=== PATIENT | male | born 1955 | race Caucasian/White ===

== ENCOUNTER 2019-03-26 10:06 | Inpatient (IN) | payer SELFPAY ==
[~2019-03-26] VITALS: Ht 185 cm; Wt 95.7 kg
[2019-03-26] MEDS ORDERED: guaiFENesin/CODEINE (ROBITUSSIN AC) 10ML UDC PO PRN (13:15)
[2019-03-26] MEDS ORDERED: ONDANSETRON 4 MG (ZOFRAN) ORAL DISSOLVE TAB PO PRN (13:15)
[2019-03-26] MEDS ORDERED: BISACODYL 10 MG SUPP (DULCOLAX) PR PRN (13:15)
[2019-03-26] MEDS ORDERED: ACETAMINOPHEN 500 MG TAB (TYLENOL) PO PRN (13:15)
[2019-03-26] MEDS ORDERED: diphenhydrAMINE 25 MG TAB (BENADRYL) PO PRN (13:15)
[2019-03-26] MEDS ORDERED: ALPRAZolam 0.25 MG (XANAX) TAB PO PRN (13:15)
[2019-03-26] MEDS ORDERED: LACTULOSE SYRUP 10GM/15ML (ENULOSE) 30ML UDC PO PRN (13:15)
[2019-03-26] MEDS ORDERED: LOPERAMIDE 2 MG (IMODIUM) TABLET PO PRN (13:15)
[2019-03-26] MEDS ORDERED: MELATONIN 3 MG TABLET PO PRN (13:15)
[2019-03-26] MEDS ORDERED: DOCUSATE SODIUM 100 MG (COLACE) CAP PO PRN (13:15)
[2019-03-26] MEDS ORDERED: FLEET ENEMA ADULT 1 EA BTL PR PRN (13:15)
[2019-03-26] MEDS ORDERED: MULT-19 PO (14:17)
[2019-03-26] MEDS ORDERED: ASPI-983 PO (14:17)
[2019-03-26] MEDS ORDERED: AMLO5TAB9 PO (14:17)
[2019-03-26] MEDS ORDERED: THIA100T66 PO (14:17)
[2019-03-26] MEDS ORDERED: ATOR40TA70 PO (14:17)
--- NOTE | 2019-03-26 14:18 | NUR ---
UPDATED MED REC WITH DISCHARGE ORDERS FROM [facility]. NOTE THE FOLLOWING CHANGES WERE MADE AT THAT DISCHARGE. START TAKING: ASPIRIN 81MG DAILY ATORVASTATIN 40MG HS MTV WITH FOLIC ACID DAILY THIAMINE 100MG DAILY CONTINUE: AMLODIPINE 5MG DAILY I WILL UPDATE THE MED REC BACK TO THE MEDICATIONS THE PATIENT WAS TAKING PRIOR TO THAT DISCHARGE AT A LATER DATE FOR PROPER DISCHARGE TO HOME ORDERS. Addendum: 03/27/19 at 1450 by FARIDA BURNETT [facility] REMOVED THE 4 NEW MEDICATIONS ORDERED AT DISCHARGE FROM [facility]. I LEFT THE AMLODIPINE WHICH HAD BEEN ORDERED TO CONTINUE. I WAS UNABLE TO VERIFY WHERE/WHEN I WAS FILLED PREVIOUSLY. [facility] HAS NOT FILLED FOR THE PATIENT SINCE 2014.
--- NOTE | 2019-03-26 14:20 | NUR ---
Pt admitted to room 231, with an admitting diagnosis of S/P CVA, from [facility] via w/c, accompanied by son, & . CHAYA WESTBROOK introduced to surroundings, call light, bed controls, phone, TV, temperature control, lights, meal times, smoking policy, visitor policy, side rail policy, bathrooms and showers. Patient Rights provided to patient in the handbook. CHAYA WESTBROOK acknowledges understanding that [facility] is not responsible for the loss or damage to any personal effects or valuables that are kept in the patients posession during their hospitalization. The following Patient Care Plans were discussed with the pt/family: Discharge Planning, Alteration in Mobility, Falls, Self Care Deficit, Potential for fall/injury. CHAYA WESTBROOK acknowledges understanding of Interdisciplinary Patient Education. Patient and/or family were informed about the Rapid Response Team and its purpose. Patient received Patient Rights Booklet, which includes Privacy Act Statement and Data Collection Information Summary. Pt immediately working w therapy upon arrival to unit.
--- NOTE | 2019-03-26 14:46 | Physical Therapy Evaluation ---
PT Evaluation-General Medical Diagnosis Admission Date Medical Diagnosis: CVA Onset Date: Mar 23, 2019 Therapy Diagnosis Therapy Diagnosis: impaired mobility, strength, endurance, balance Referral Physician: Sherrell Griggs DO Reason for Referral: Evaluation/Treatment Medical History Reviewed History: Yes Social History Home: Single Level Current Living Status: Alone Entry Into Home: Stairs With Railing PT Steps Into Home: 4 Prior Prior Level of Function SCALE: Activities may be completed with or without assistive devices. 9-Vgjbcfnzet-cjihegy completes the activity by him/herself with no assistance from a helper. 5-Set-up or Clean-up Assistance-helper sets up or cleans up; patient completes activity. [place] assists only prior to or following the activity. 4-Supervision or Touching Assistance-helper provides verbal cues and/or touching/steadying and/or contact guard assistance as patient completes activit y. Assistance may be provided throughout the activity or intermittently. 3-Partial/Moderate Assistance-helper does LESS THAN HALF the effort. [place] lifts, holds or supports trunk or limbs, but provides less than half the effort. 2-Substantial/Maximal Assistance-helper does MORE THAN HALF the effort. [place] lifts or holds trunk or limbs and provides more than half the effort. 0-Wesbrhfwz-jrklnu does ALL the effort. Patient does none of the effort to complete the activity. Or, the assistance of 2 or more helpers is required for the patient to complete the activity. If activity was not attempted, code reason: 7-Patient Refused. 9-Not Applicable-not attempted and the patient did not perform the activity before the current illness, exacerbation or injury. 10-Not Attempted due to Environmental Limitations-(lack of equipment, weather restraints, etc.). 88-Not Attempted due to Medical Conditions or Safety Concerns. Bed Mobility: 6 Transfers (B,C,W/C): 6 Gait: 6 Stairs: 6 Indoor Mobility (Ambulation): Independent Stairs: Independent PT Evaluation-Current Subjective Patient arrives to hospital with family transport. Performs car transfer with max assist. Patient has no complaints of pain just states that his left leg feels weird. Pt/Family Goals to be independent at home Objective Patient Orientation: Person, Place, Situation ROM/Strength ROM Lower Extremities WNL Strength Lower Extremities RLE 5/5 gross, LLE (hip flexion 3+/5, knee flexion 3/5, knee extension 4-/5, dorsiflexion 3/5) Neuromuscular (Tone, Coordination, Reflexes) Patient displays decreased coordination of LLE during ambulation and transfers. Patient seems to have intact peripheral vision and tracking in both sides. Sensory Vision: Functional Hearing: Functional Sensation Right Lower Extremit: Intact Sensation Left Lower Extremity: Intact Sensation Lower Extremities Patient has intact light touch sensation in the LLE but states that his sensation is different than before the CVA. Transfers Roll Left to Right (QC): 4 Sit to Lying (QC): 4 Lying to Sitting/Side of Bed(Q: 4 Sit to Stand (QC): 3 Chair/Inx-tv-Fmaxi Xfer(QC): 3 Car Transfer (QC): 2 Patient performs bed mobility with SBA, supine <-> sit with SBA, sit <-> stand with mod assist, transfers mod assist, car transfer max assist. Patient needs cues for positioning and safety, he is impulsive and will move without being in the correct position. Gait Does the Patient Walk?: Yes Mode of Locomotion: Both Anticipated Mode of Locomotion: Walk Walk 10 feet (QC): 88 Walk 50 ft with 2 Turns(QC): 88 Walk 150 ft (QC): 88 Walking 10ft/uneven surface-QC: 88 Distance: 8' Gait Assistive Device: Parallel Bars Comments/Gait Description Patient ambulated 8' in the parallel bars with min assist. He has very uncoordinated steps especially on the left side, needs cues for safe positioning, takes very large steps. Left knee tends to buckle. Wheelchair Training Does the Pt Use a Wheelchair?: Yes Distance: 150' Wheel 50 ft with 2 turns (QC): 1 Wheel 150 ft (QC): 1 Type of Wheelchair: Manual Patient drags his left leg, needs cues to lift it and he can do that but loses track quickly. Stairs 1 Step (curb) (QC): 88 4 Steps (QC): 88 12 Steps (QC): 88 not performed due to left knee buckling Balance Sitting Static: Fair Sitting Dynamic: Poor Standing Static: Poor Standing Dynamic: Poor Picking up an Object (QC): 88 Assessment/Needs Patient has impaired sitting and standing balance. He is impulsive and has some neglect on the left side. Patient is a high fall risk. Rehab Potential: Fair PT Short Term Goals Short Term Goals Time Frame: Apr 02, 2019 Roll Left & Right: 6 Sit to lyin Lying to sitting on side of be: 6 Sit to stand: 3 Chair/jjv-zp-tguji transfer: 3 Walk 10 feet: 3 Walk 50 feet with two turns: 3 PT Garment Finisher Goals Garment Finisher Goals PT Usp Goals Time Frame: Apr 16, 2019 Roll Left & Right (QC): 6 Sit to Lying (QC): 6 Lying-Sitting on Side/Bed(QC): 6 Sit to Stand (QC): 4 Chair/Qya-lc-Xqnwx Xfer(QC): 4 Toilet Transfer (QC): 4 Car Transfer (QC): 4 Walk 10 feet (QC): 3 Walk 50ft with 2 Turns (QC): 3 Walk 150 ft (QC): 3 Walking 10ft on Uneven Surface: 3 1 Step (curb) (QC): 3 4 Steps (QC): 3 PT Plan Problem List Problem List: Activity Tolerance, Functional Strength, Safety, Balance, Gait, Transfer, Bed Mobility Treatment/Plan Treatment Plan: Continue Plan of Care Treatment Plan: Bed Mobility, Education, Functional Activity Vlad, Functional Strength, Group Therapy, Gait, Safety, Therapeutic Exercise, Transfers Treatment Duration: Apr 16, 2019 Frequency: At least 5 of 7 days/Wk (IRF) Estimated Hrs Per Day: 1.5 hours per day Patient and/or Family Agrees t: Yes Safety Risks/Education Patient Education: Gait Training, Transfer Techniques, Correct Positioning, W/C Management, Safety Issues Teaching Recipient: Patient Teaching Methods: Demonstration, Discussion Response to Teaching: Reinforcement Needed Discharge Recommendations Plan Patient will perform bed mobility and transfer training, balance and endurance training, functional strengthening, stair training, gait training, and education, to improve functional mobility and independence at home. Therapy Discharge Recommendati: Other, See Comments ([place], home with family) Time/GCodes Time In: 1410 Time Out: 1420 Total Billed Treatment Time: 10 Total Billed Treatment 1 visit JESSE MIRANDA PT Mar 26, 2019 14:46
[2019-03-26 14:48] VITALS: BP 171/95
[2019-03-26] MEDS ORDERED: cloNIDine 0.1 MG (CATAPRES) TAB PO PRN (15:30)
[2019-03-26] MEDS ORDERED: amLODIPine 5 MG (NORVASC) TAB PO NR (15:30)
[2019-03-26] MEDS ORDERED: hydrALAZINE (APRESOLINE) 25 MG TAB PO PRN (15:30)
--- NOTE | 2019-03-26 15:44 | Physical Therapy Daily Note ---
PT Daily Note-Current Subjective Patient is agreeable to therapy and states he is ready to work. Patient reports no pain at this time. Pain Numeric Pain Scale: 0-No Pain Location: No Pain Reported Mental Status Patient Orientation: Person, Place, Time, Situation Patient comprehends what is told to him and is able to express his thoughts. Transfers SCALE: Activities may be completed with or without assistive devices. 0-Okxznaqgyt-onbbkdb completes the activity by him/herself with no assistance from a helper. 5-Set-up or Clean-up Assistance-helper sets up or cleans up; patient completes activity. [place] assists only prior to or following the activity. 4-Supervision or Touching Assistance-helper provides verbal cues and/or touching/steadying and/or contact guard assistance as patient completes activity. Assistance may be provided throughout the activity or intermittently. 3-Partial/Moderate Assistance-helper does LESS THAN HALF the effort. [place] lifts, holds or supports trunk or limbs, but provides less than half the effort. 2-Substantial/Maximal Assistance-helper does MORE THAN HALF the effort. [place] lifts or holds trunk or limbs and provides more than half the effort. 5-Filhhylga-muxfxp does ALL the effort. Patient does none of the effort to complete the activity. Or, the assistance of 2 or more helpers is required for the patient to complete the activity. If activity was not attempted, code reason: 7-Patient Refused. 9-Not Applicable-not attempted and the patient did not perform the activity before the current illness, exacerbation or injury. 10-Not Attempted due to Environmental Limitations-(lack of equipment, weather restraints, etc.). 88-Not Attempted due to Medical Conditions or Safety Concerns. Roll Left & Right (QC): 5 Sit to Lying (QC): 4 Lying to Sitting/Side of Bed(Q: 4 Sit to Stand (QC): 3 Chair/Jca-gt-Atkxp Xfer(QC): 3 Toilet Transfer (QC): 3 Car Transfer (QC): 2 Patient utilized grab bar for sit to brake engineer shower x 4 sets to cleanse and dress Gait Training Does the Patient Walk?: Yes Gait Assistive Device: Parallel Bars Wheelchair Training Does the Pt Use a Wheelchair?: Yes Wheel 50 ft with 2 turns (QC): 5 Wheel 150 ft (QC): 5 Type of Wheelchair: Manual Patient propelled w/c by himself and patient needing cueing for locking and unlocking brakes and assistance moving foot rests. Treatments PT/OT co-treat secondary to increased medical complexity and weakness requiring the skill of 2 disciplines that a rehabilitation assistant cannot perform. PT addressed patient dynamic standing balance, LE placement and overall gross movement and OT focused on UE placement, sequencing with tasks and ADLs. patient stood 10 minutes x 2 and placed pegs with his right hand and removing pegs from peg board with left hand with OT addressing peg fine motor skills. Assessment As patient fatigues the control he has of his left UE and LE decreases. Patient was able to balance fairly well with the support of a therapist. Patient uses a stand pivot transfer to get from w/c to bed with moderate assistance from therapist. PT Plan Problem List Problem List: Activity Tolerance, Functional Strength, Safety, Balance, Gait, Transfer, Bed Mobility, ROM Treatment/Plan Treatment Plan: Continue Plan of Care Treatment Plan: Bed Mobility, Education, Functional Activity Vlad, Functional Strength, Gait, Safety, Therapeutic Exercise, Transfers Treatment Duration: May 02, 2019 Frequency: At least 5 of 7 days/Wk (IRF) Estimated Hrs Per Day: 1.5 hours per day Patient and/or Family Agrees t: Yes Safety Risks/Education Patient Education: Gait Training, Transfer Techniques, W/C Management Teaching Recipient: Patient, Significant Other Teaching Methods: Discussion Response to Teaching: Reinforcement Needed Time/GCodes Time In: 1430 Time Out: 1540 Total Billed Treatment Time: 70 Total Billed Treatment 1 visit FA x 5 70 min KYRIE SULLIVAN PT Mar 26, 2019 15:44
--- NOTE | 2019-03-26 15:49 | Occupational Therapy Eval ---
OT Evaluation-General/PLF Medical Diagnosis Admission Date Mar 26, 2019 at 14:15 Medical Diagnosis: CVA Onset Date: Mar 23, 2019 Therapy Diagnosis Therapy Diagnosis: impaired ADLs and functional mobility Referral Physician: Sherrell Griggs DO Referral Reason: Activity Tolerance, Self Care, Evaluation/Treatment, Strengthening/ROM Medical History Pertinent Medical History: HTN Additional Medical History ETOH Reviewed History: Yes Social History Home: Single Level Current Living Status: Alone Entry Into Home: Stairs With Railing Steps Into Home: 4 ADL-Prior Level of Function SCALE: Activities may be completed with or without assistive devices. 6-Nkdcazkcns-cnsqvdq completes the activity by him/herself with no assistance from a helper. 5-Set-up or Clean-up Assistance-helper sets up or cleans up; patient completes activity. [place] assists only prior to or following the activity. 4-Supervision or Touching Assistance-helper provides verbal cues and/or touching/steadying and/or contact guard assistance as patient completes activity. Assistance may be provided throughout the activity or intermittently. 3-Partial/Moderate Assistance-helper does LESS THAN HALF the effort. [place] lifts, holds or supports trunk or limbs, but provides less than half the effort. 2-Substantial/Maximal Assistance-helper does MORE THAN HALF the effort. [place] lifts or holds trunk or limbs and provides more than half the effort. 9-Yqundskxn-hjnzes does ALL the effort. Patient does none of the effort to complete the activity. Or, the assistance of 2 or more helpers is required for the patient to complete the activity. If activity was not attempted, code reason: 7-Patient Refused. 9-Not Applicable-not attempted and the patient did not perform the activity before the current illness, exacerbation or injury. 10-Not Attempted due to Environmental Limitations-(lack of equipment, weather restraints, etc.). 88-Not Attempted due to Medical Conditions or Safety Concerns. ADL PLOF Comments Pt reports he was independent with all ADLs and functional mobility prior to having a stroke. Self Care: Independent Functional Cognition: Independent DME/Equipment Comments none Occupation: [employer] Self: Yes OT Current Status Subjective Pt upright in w/c in therapy gym at start of OT evaluation. Pt denied having pain at this time. He was agreeable to OT tx and eval. Mental Status/Objective Patient Orientation: Person, Place, Time, Situation Current Glasses/Contacts: Yes Hearing Aids: No Dentures/Partials: Yes Hand Dominance: Right Upper Extremity ROM LUE WFL, RUE impaired, shoulder flexion to approximately 110 degrees Upper Extremity Coordination decreased RUE coordination Upper Extremity Sensation decreased RUE sensation, reports "numbness" in right arm ADL-Treatment Eating (QC): 6 (Per pt report, he is able to cut food and bring food to mouth without assistance. ) Oral Hygiene (QC): 7 (Pt declined on this date stating he usually soaks his dentures but he did not bring them with him to the hospital.) Shower/Bathe Self (QC): 3 (Pt completed shower, requiring min A with LLE, and RUE. Mod A standing balance standing at [facility].) Upper Body Dressing (QC): 3 (Assist with threading LUE into shirt and with managing down ) Lower Body Dressing (QC): 2 (Assist threading BLEs, pt able to manage pants up.) On/Off Footwear (QC): 2 (Pt able to start putting on his sleeper onto his right foot, requiring assistance to get on the rest of the way, total assist requring to don left slipper.) Toileting Hygiene (QC): 3 (Pt able to place urinal and void, OT assisted with holding urinal in order for it not to spill. OT then emtied urinal for pt.) Other Treatments Pt in w/c in therapy gym, provided information about PLOF and home set up for evaluation. OT/PT then co-treated secondary to increased medical complexity and overall weakness requiring the skill of 2 disciplines which a corrective therapy aide teacher could not perform. OT focused on sequencing of tasks, cueing for safety, and UE placement while PT focused on overall gross movements and LE placement. Pt taken to his room where he completed ADLs. He then self-propelled to therapy gym where he completed standing trials at table as PT focused on balance and OT focused on fine motor coordination & neuromuscular reeducation. Pt placed pegs into foam pegboard using RUE and removed pegs using LUE, completing x25 pegs total, with 2 standing trials, 10 minutes each trial before pt fatigued. Pt then propelled self back to his room where he transferred to his bed. Pt stated he needed to use the urinal at this time. Pt educated on using the call light. Post OT/PT co- treat, pt laying in bed with call light in reach and all needs met, present. Education OT Patient Education: Correct positioning, Energy conservation, Exercise program, Modified ADL techniques, Progress toward Goal/Update tx plan, Purpose of tx/functional activities, Safety issues, Transfer techniques Teaching Recipient: Patient Teaching Methods: Discussion Response to Teaching: Verbalize Understanding OT Short Term Goals Short Term Goals Time Frame: Apr 08, 2019 Shower/bathe self: 4 Lower body dressin Putting on/taking off footwear: 4 OT Mcc Goals Mcc Goals Time Frame: Apr 17, 2019 Eating (QC): 6 Oral Hygiene (QC): 6 Toileting Hygiene (QC): 6 Shower/Bathe Self (QC): 6 Upper Body Dressing (QC): 6 Lower Body Dressing (QC): 6 On/Off Footwear (QC): 6 Additional Goals: 1-Demonstrate ADL Tasks, 2-Verbalize Understanding, 3- ImproveStrength/Vlad 1=Demonstrate adherence to instructed precautions during ADL tasks. 2=Patient will verbalize/demonstrate understanding of assistive devices/modifications for ADL. 3=Patient will improve strength/tolerance for activity to enable patient to perform ADL's. OT Education/Plan Problem List/Assessment Assessment: Decreased Activ Tolerance, Decreased Safety Aware, Decreased UE Strength, Impaired Bed Mobility, Impaired Coordination, Impaired Funct Balance, Impaired I ADL's, Impaired Self-Care Skills, Restricted Funct UE ROM Discharge Recommendations Plan/Recommendations: Continue POC Treatment Plan/Plan of Care Treatment,Training & Education: Yes Patient would benefit from OT for education, treatment and training to promote independence in ADL's, mobility, safety and/or upper extremity function for ADL's. Plan of Care: ADL Retraining, Caregiver Training, Functional Mobility, Group Exercise/Act as Ind, UE Funct Exercise/Act, UE Neuromus Re-Ed/Coord Treatment Duration: Apr 17, 2019 Frequency: At least 5 of 7 days/Wk (IRF) Estimated Hrs Per Day: 1.5 hours per day Agreement: Yes Rehab Potential: Good Time/GCodes Start Time: 14:20 Stop Time: 15:40 Total Time Billed (hr/min): 80 Billed Treatment Time 2343-1443 OT evaluation [id number] OT/PT co-treat 1, EVM (10 mins), ADL 3 (50), NM (20mins) NHAN ADHIKARI OT Mar 26, 2019 15:49
[2019-03-26 16:05] VITALS: BP 154/88
--- NOTE | 2019-03-26 16:16 | ST Cognitive Linguistic Eval ---
Speech Evaluation-General Medical Diagnosis CVA Onset Date: Mar 26, 2019 Therapy Diagnosis Therapy Diagnosis: Cognitive-Communication, Aphasia Referral Referring Physician: Dr. Griggs Medical History Pertinent Medical History: HTN Reviewed History: Yes Social History Current Living Status: Alone Speech PLF-Current Status Prior Level of Function Patient reported having no problems with speech or language prior to CVA. Subjective Patient was alert and cooperative throughout all evaluation tasks. Patient was sitting upright in his bed for evaluation tasks. Language Eval: Auditory Comprehends Simple Yes/No Ques: Functional Indent/Objects Multiple [place]: Functional Ident/Pics in Multiple [place]: Functional Follows 1-Step Commands: Functional Follows Complex Directions: Functional Follows General Conversations: Functional Language Eval: Verbal Language Completes Spontaneous Greeting: Functional Produces Auto, Serial Info: Functional Imitates Simple Words/Phrases: Functional Word Finding: Mild Requests Basic Needs: Functional States Basic Personal Info: Functional Expresses Complex Ideas: Functional Objective Cognitive Domain Attention: WNL Memory: Mild Problem Solving: Mild Executive Functions: WNL Visuospatial Skills: WNL Composite Severity Rating: Mild Clock Drawing Severity Rating: Mild Objective Formal/Standardized Tests [facility] Mental Status ([facility]) Results Patient obtained a score of 20/30 on the SLUMS which is indicative of a moderate cognitive-communication range of function. Oral Motor/Speech Production Within normal limits. Impression Patient was admitted to the ARU s/p CVA. Patient scored a 20/30 on the SLUMS which falls within the moderate cognitive-communication range of function. Patient qualifies for skilled ST services to address cognitive-communication deficits to promote safety and communicating wants/needs. Speech Patient Assess Expression of Ideas/Wants: Exhibits (3) Understanding Verbal Content: Usually Understands (3) Brief Interview-Mental Status: Yes Repetition of Three Words: Three (3) Temporal Orientation: Year: Correct (3) Temporal Orientation: Month: Accurate within 5 days(2) Temporal Orientation: Day: Correct (1) Recall : Wear to say "Sock": Yes, no cue required (2) Recall : Color: Yes, after cueing (1) Recall : Bed: No, could not recall (0) Memory/Recall Ability: Current season, That he or she is in a hsp/hsp unit Speech Short Term Goals Short Term Goals Short Term Goals 1. Patient will complete memory tasks with 90% or greater with minimal cues. 2. Patient will complete problem-solving tasks with 90% or greater with minimal cues. 3. Patient will complete safety awareness tasks with 90% or greater with minimal cues. 4. Patient will complete word finding tasks with 90% or greater with minimal cues. 5. Patient will complete speech production tasks with 90% or greater with minimal cues. Speech Residential Goals Area Forester Goals Patient will improve cognitive-communication necessary for safety and daily living tasks with minimal assist. Speech-Plan Patient/Family Goals Patient/Family Goals: Patient plans to return home with his . Treatment Plan Speech Therapy Treatment Plan: Continue Plan of Care Treatment Duration: Apr 03, 2019 Frequency: 5 times per week Estimated Hrs Per Day: .5 hour per day Rehab Potential: Good Barriers to Learning: CVA Pt/Family Agrees to Plan: Yes Safety Risks/Education Teaching Recipient: Patient Teaching Methods: Demonstration, Discussion Response to Teaching: Verbalize Understanding Education Topics Provided: Patient was educated on the need for safety awareness upon returning home. Time Speech Therapy Time In: 15:45 Speech Therapy Time Out: 16:05 Total Billed Time: 20 Billed Treatment Time 1, [address] Mar 26, 2019 16:16
[2019-03-26] MEDS: ENOXAPARIN 40 MG/0.4 ML (LOVENOX) SYR SC SCH (16:21)
--- NOTE | 2019-03-26 18:06 | PM&R Post Admission Assessment ---
PM&R HP Date of Visit: Mar 26, 2019 Time of Visit: 18:15 History of Present Illness CC: Stroke with left sided weakness HPI: This is a 63yoWM who suffered a stroke managed at [facility] and currently in need of aggressive treatment to resolve neurological deficits in order to regain independent living and prior level of functioning levels. At this current time pt denies any pain and he is ready and willing to work with therapy to meet requirements of inpatient rehab. Patient has not seen a doctor for many years and continues to smoke and has no intention of stopping smoking. Patient reports no constipation. He did have a fall at [facility] has bruising on the left arm. His high blood pressure continues to be an issue so I did give an additional dose of Norvasc. 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 Past Vcmelly-Xumqzb-Teezdj Hx Past Med/Social Hx: Reviewed Nursing Past Med/Soc Hx, Reviewed and Corrections made Patient Social History Marrital Status: Employed/Student: employed ([employer]) Alcohol Use: Regular Use Alcohol Beverage of Choice: Whiskey Recreational Drug Use: No Smoking Status: Current Everyday Smoker Type Used: Cigars, Cigarettes Physical Abuse Screen: No Sexual Abuse: No Recent Foreign Travel: No Contact w/other who traveled: No Recent Hopitalizations: Yes Recent Infectious Disease Expo: No Seasonal Allergies Seasonal Allergies: No Past Medical History Cardiac: Hypertension (dx 2019) Neurological: Stroke (2019) Prior Level of Function Bed Mobility: 6 Transfers: 6 Gait: 6 Stairs: 6 Indoor Mobility (Ambulation): Independent Stairs: Independent Self Care: Independent Functional Cognition: Independent Occupation: [employer] Self: Yes Current Level of Fuctioning Roll Left to Right: 5 Sit to Lyin Lying to Sitting/Side of Bed: 4 Sit to Stand: 3 Chair/Cty-ji-Ymhhm Xfer: 3 Car Transfer: 2 Does the Patient Walk: Yes Mode of Locomotion: Both Anticipated Mode of Locomotion: Walk Walk 50 ft with 2 Turns: 88 Walk 150 ft: 88 Walking 10ft on uneven surface: 88 Gait Assistive Device: Parallel Bars Does the Pt Use a Wheelchair: Yes Wheelchair Distance: 150' Wheel 50 ft with 2 turns: 5 Wheel 150 ft: 5 Type of Wheelchair: Manual 1 Step (curb): 88 4 Steps: 88 12 Steps: 88 Picking up an Object: 88 Eatin (Per pt report, he is able to cut food and bring food to mouth without assistance. ) Oral Hygiene: 7 (Pt declined on this date stating he usually soaks his dentures but he did not bring them with him to the hospital.) Shower/Bathe Self: 3 (Pt completed shower, requiring min A with LLE, and RUE. Mod A standing balance standing at [facility].) Upper Body Dressin (Assist with threading LUE into shirt and with managing down ) Lower Body Dressin (Assist threading BLEs, pt able to manage pants up.) On/Off Footwear: 2 (Pt able to start putting on his sleeper onto his right foot, requiring assistance to get on the rest of the way, total assist requring to don left slipper.) Toileting Hygiene: 3 (Pt able to place urinal and void, OT assisted with holding urinal in order for it not to spill. OT then emtied urinal for pt.) PM&R Allergy/Meds/Data Review Allergies Coded Allergies: Penicillins (Verified Allergy, Unknown, 03/26/19) Home Medications Scheduled Amlodipine Besylate (Amlodipine Besylate), 5 MG PO DAILY, (Reported) Aspirin (Aspirin EC), 81 MG PO DAILY, (Reported) Atorvastatin Calcium (Atorvastatin Calcium), 40 MG PO HS, (Reported) Multivitamin with Folic Acid (Thera Tablet), 1 TAB PO DAILY, (Reported) Thiamine HCl (B-1), 100 MG PO DAILY, (Reported) Current Medications Current Medications Reviewed Review of Systems Constitutional: see HPI, malaise, weakness Psychiatric/Neurological: Anxiety, Depressed, Weakness All Other Systems Reviewed Negative Unless Noted: Yes Physical Exam Physical Exam Vital Signs Vital Signs - First Documented 03/26/19 14:48 Temp 37.0 Pulse 80 Resp 20 B/P (MAP) 171/95 (120) Pulse Ox 98 O2 Delivery Room Air Capillary Refill : Height, Weight, BMI Height: '" Weight: lbs. oz. kg; BMI Method: General Appearance: No Apparent Distress, WD/WN, Chronically ill Eyes: Bilateral Eye Normal Inspection, Bilateral Eye PERRL HEENT: PERRL/EOMI, Normal ENT Inspection, Pharynx Normal Neck: Full Range of Motion, Normal Inspection, Non Tender, Supple, Carotid Bruit Respiratory: Chest Non Tender, Lungs Clear, Normal Breath Sounds, No Accessory Muscle Use, No Respiratory Distress, Decreased Breath Sounds Cardiovascular: Regular Rate, Rhythm, No Edema, No Gallop, No JVD, No Murmur, Normal Peripheral Pulses Gastrointestinal: Normal Bowel Sounds, No Organomegaly, No Pulsatile Mass, Non Tender, Soft Back: Normal Inspection, No CVA Tenderness, No Vertebral Tenderness Extremity: Normal Capillary Refill, Normal Inspection, Normal Range of Motion, Non Tender, No Calf Tenderness, No Pedal Edema Neurologic/Psychiatric: Alert, Oriented x3, plowing gardens II-XII Norm as Tested, Depressed Affect, Motor Weakness (left arm and leg weakness) Skin: Normal Color, Warm/Dry Lymphatic: No Adenopathy PM&R Medical Assessment & Plan REHAB/MEDICAL ASSESSMENT AND PLAN: REHAB IMPAIRMENT GROUP: CVA ETIOLOGIC DIAGNOSIS: CVA The comorbidities that impact the patients function and/or functional outcome by: Hypertension iks-ew-prowude, continued smoking, noncompliance REHAB PLAN: The patient is being admitted to our comprehensive inpatient rehabilitation facility and can tolerate the intensity of service consisting of at least: 180 minutes of therapy a day, 5 out of 7 days a week Rehab treatment will consist of: PT and OT will help navigate with a left-sided weakness and wheelchair mobility and ambulation and fall risk prevention The patient/family has a good understanding of our discharge process and will benefit from an interdisciplinary inpatient rehabilitation program. The patient has potential to make improvement and is in need of at least two of the following multidisciplinary therapies including but not limited to physical, occupational, speech, and prosthetics and orthotics. Additionally the patient will need services from respiratory, nutritional services, wound care, psyc hology, etc. (Customize this to each patient). Given the patients complex condition and risk of further medical complications, rehabilitation services cannot be safely or effectively provided at a lower level of care such as a alf facility. BARRIERS TO DISCHARGE: but ex- involved ESTIMATED LOS: 10 days DISPOSITION: Home with home care RELEVANT CHANGES SINCE PREADMISSION SCREENING: I have compared the patients medical and functional status at the time of the preadmission screening and there are: no changes PROGNOSIS: Fair REHABILITATION GOALS: 1. PT and OT will focus on regaining the ability to navigate with a left-sided weakness with wheelchair mobility and walker management with platform All the above goals were reviewed with the patient and he/she is in agreement. By signing this document, I acknowledge that I have personally performed a full physical examination on this patient within 24 hours of admission to this inpatient rehabilitation facility and have determined the patient to be able to tolerate the above course of treatment at an intensive level for a reasonable period of time. I will be completing a detailed individualized Plan of Care for this patient by day #4 of the patients stay based upon the Preadmission Screen, the Post-Admission Evaluation, and the therapy evaluations. Admission Dx/Comorbidities: (1) CVA (cerebral vascular accident) ICD Codes: I63.9 - Cerebral infarction, unspecified (2) Smoker ICD Codes: F17.200 - Nicotine dependence, unspecified, uncomplicated (3) Hypertension ICD Codes: I10 - Essential (primary) hypertension (4) Noncompliance ICD Codes: Z91.19 - Patient's noncompliance with other medical treatment and regimen (5) Left-sided weakness ICD Codes: R53.1 - Weakness Assessment/Plan Assessment and Plan Assess & Plan/Chief Complaint Assessment: CVA Left-sided weakness Hypertension Current smoker Noncompliance Plan: Inpatient rehabilitation protocol Blood pressure control Monitor labs Maintain good bowel function YOLANDA KEITH DO Mar 26, 2019 18:06
[2019-03-26 19:04] VITALS: BP 154/77
--- NOTE | 2019-03-26 19:19 | NUR ---
bedside report received from KISHORE BARAKAT, assume care of pt
--- NOTE | 2019-03-26 20:13 | NUR ---
When asking pt admission questions, pt stated that, "he was a DNR." Pt's was present in the room, & confirmed this, & acknowledged that she was aware of this. Notified Dr. Griggs, & rec'd orders.
[2019-03-26 20:25] VITALS: BP 146/76
[2019-03-26] MEDS: MAGNESIUM OXIDE (MAG-OX)400 MG TAB PO SCH (20:26)
[2019-03-26] MEDS: POLYETHYLENE GLYCOL 17 GM (MIRALAX) PACK PO SCH (20:27)
[2019-03-26] MEDS: SENNA W/DOCUSATE (SENOKOT S) TABLET PO SCH (20:27)
[2019-03-26] MEDS: DOCUSATE SODIUM 100 MG (COLACE) CAP PO SCH (20:27)
--- NOTE | 2019-03-26 20:27 | NUR ---
took colace & senoskot but refused miralax, v/s [id number]%-146/76-0/10, scored 5 on NIH stroke scale
[2019-03-27 05:09] LABS: BASOPHILS % (AUTO) 1 % (0-10); EOSINOPHILS # (AUTO) 0.4 10^3/uL (0.0-0.3); EOSINOPHILS % (AUTO) 5 % (0-10); HEMATOCRIT 43 % (40-54); HEMOGLOBIN 14.5 G/DL (13.3-17.7); LYMPHOCYTES # (AUTO) 2.2 X 10^3 (1.0-4.0); LYMPHOCYTES % (AUTO) 29 % (12-44); MEAN CORPUSCULAR HEMOGLOBIN 29 PG (25-34); MEAN CORPUSCULAR HGB CONC 34 G/DL (32-36); MEAN CORPUSCULAR VOLUME 86 FL (80-99); MEAN PLATELET VOLUME 10.8 FL (7.4-10.4); MONOCYTES # (AUTO) 0.8 X 10^3 (0.0-1.0); MONOCYTES % (AUTO) 11 % (0-12); NEUTROPHILS # (AUTO) 4.1 X 10^3 (1.8-7.8); NEUTROPHILS % (AUTO) 55 % (42-75); PLATELET COUNT 187 10^3/uL (130-400); RED CELL DISTRIBUTION WIDTH 12.9 % (10.0-14.5); WHITE BLOOD COUNT 7.5 10^3/uL (4.3-11.0)
[2019-03-27 05:29] LABS: ALANINE AMINOTRANSFERASE 30 U/L (0-55); ALBUMIN 3.5 GM/DL (3.2-4.5); ALKALINE PHOSPHATASE 63 U/L (40-136); BILIRUBIN,TOTAL 0.9 MG/DL (0.1-1.0); BUN/CREATININE RATIO 16; CALCIUM 8.2 MG/DL (8.5-10.1); CARBON DIOXIDE 20 MMOL/L (21-32); CHLORIDE 109 MMOL/L (98-107); CREATININE SERUM 0.77 MG/DL (0.60-1.30); GFR ESTIMATED > 60; GLUCOSE 102 MG/DL (70-105); POTASSIUM 3.8 MMOL/L (3.6-5.0); SODIUM 138 MMOL/L (135-145); TOTAL PROTEIN 6.2 GM/DL (6.4-8.2)
[2019-03-27 05:33] VITALS: BP 149/78
--- NOTE | 2019-03-27 08:39 | Occupational Ther Daily Note ---
OT Current Status-Daily Note Subjective Pt laying in bed at start of session, agreeable to OT tx this AM. He denies having pain today. ADL-Treatment Therapy Code Descriptions/Definitions Functional [place] Measure: 0=Not Assessed/NA 4=Minimal Assistance 1=Total Assistance 5=Supervision or Setup 2=Maximal Assistance 6=Modified [place] 3=Moderate Assistance 7=Complete IndependenceSCALE: Activities may be completed with or without assistive devices. 4-Fnazxodopv-grxamge completes the activity by him/herself with no assistance from a helper. 5-Set-up or Clean-up Assistance-helper sets up or cleans up; patient completes activity. [place] assists only prior to or following the activity. 4-Supervision or Touching Assistance-helper provides verbal cues and/or touching/steadying and/or contact guard assistance as patient completes activity. Assistance may be provided throughout the activity or intermittently. 3-Partial/Moderate Assistance-helper does LESS THAN HALF the effort. [place] lifts, holds or supports trunk or limbs, but provides less than half the effort. 2-Substantial/Maximal Assistance-helper does MORE THAN HALF the effort. [place] lifts or holds trunk or limbs and provides more than half the effort. 4-Kqnswjnnp-xsjwfc does ALL the effort. Patient does none of the effort to complete the activity. Or, the assistance of 2 or more helpers is required for the patient to complete the activity. If activity was not attempted, code reason: 7-Patient Refused. 9-Not Applicable-not attempted and the patient did not perform the activity before the current illness, exacerbation or injury. 10-Not Attempted due to Environmental Limitations-(lack of equipment, weather restraints, etc.). 88-Not Attempted due to Medical Conditions or Safety Concerns. Oral Hygiene (QC): 5 (Set up, pt required assistance opening swab, pt able to swab his gums. Pt does not have his dentures at the hospital, declined using toothbrush to scrub his gums. ) Other Treatment Pt transferred from bed to wheelchair, stand pivot transfer. He then went to the bathroom to perform oral hygiene, hair brushing, and face washing at the sink with set up. Pt then self propelled w/c to therapy gym. In order to increase LUE coordination, fine motor coordination, functional endurance with tasks, and neuromuscular re-education of LUE pt completed the following activities. Pt placed pegs into foam pegboard with right hand and remove pegs with left hand. Pt completed x40 pegs. Pt completed arm bike with min resistance. Pt decided to attempt to complete arm bike using just his left hand, noted increased difficulty getting handle from the bottom position to the top (against gravity). Pt completed x2:00mins. Pt states he feels like his hand is starting to listen a little better than it was. Pt then used LUE to reach for cone in OTs hand and then hand it back to OT in various planes. Pt self-propelled w/c back to his room to await PT session. Pt seated upright in recliner with call light in reach and all needs met. Education OT Patient Education: Correct positioning, Energy conservation, Exercise program, Modified ADL techniques, Progress toward Goal/Update tx plan, Purpose of tx/functional activities, Transfer techniques Teaching Recipient: Patient Teaching Methods: Demonstration Response to Teaching: Return Demonstration OT Short Term Goals Short Term Goals Time Frame: Apr 08, 2019 Shower/bathe self: 4 Lower body dressin Putting on/taking off footwear: 4 OT Fixture Builder Goals Usp Goals Time Frame: Apr 17, 2019 Eating (QC): 6 Oral Hygiene (QC): 6 Toileting Hygiene (QC): 6 Shower/Bathe Self (QC): 6 Upper Body Dressing (QC): 6 Lower Body Dressing (QC): 6 On/Off Footwear (QC): 6 Additional Goals: 1-Demonstrate ADL Tasks, 2-Verbalize Understanding, 3- ImproveStrength/Vlad 1=Demonstrate adherence to instructed precautions during ADL tasks. 2=Patient will verbalize/demonstrate understanding of assistive devices/modifications for ADL. 3=Patient will improve strength/tolerance for activity to enable patient to perform ADL's. OT Education/Plan Problem List/Assessment Assessment: Decreased Activ Tolerance, Decreased UE Strength, Impaired Coordination, Impaired I ADL's, Impaired Self-Care Skills, Restricted Funct UE ROM Discharge Recommendations Plan/Recommendations: Continue POC Treatment Plan/Plan of Care Patient would benefit from OT for education, treatment and training to promote independence in ADL's, mobility, safety and/or upper extremity function for ADL's. Plan of Care: ADL Retraining, Caregiver Training, Functional Mobility, Group Exercise/Act as Ind, UE Funct Exercise/Act, UE Neuromus Re-Ed/Coord Treatment Duration: Apr 17, 2019 Frequency: At least 5 of 7 days/Wk (IRF) Estimated Hrs Per Day: 1.5 hours per day Agreement: Yes Rehab Potential: Good Time/GCodes Start Time: 08:00 Stop Time: 09:00 Total Time Billed (hr/min): 60 Billed Treatment Time 1, ADL (15'), NM 3 (45') NHAN ADHIKARI OT Mar 27, 2019 08:39
[2019-03-27] MEDS ORDERED: MULTIVITAMIN WITH FOLIC ACID PO SCH (09:00)
--- NOTE | 2019-03-27 09:21 | PM&R Progress Note ---
Subjective HPI/CC On Admission Date Seen by Provider: Mar 27, 2019 Time Seen by Provider: 09:00 Subjective/Events-last exam Pt having a pretty good day. Slept pretty well last night. Left-sided weakness still remains the focus of therapy. Smoking cessation counseled. BP better. Reviewed labs. Bowels are moving okay. Conferred with RN. Reviewed therapy notes. Checked meds and labs. Review of Systems General: Fatigue Neurological: Weakness, Numbness, Incoordination Objective Exam Vital Signs Vital Signs Date Time Temp Pulse Resp B/P (MAP) Pulse Ox O2 Delivery O2 Flow Rate FiO2 03/28/19 09:59 Room Air 03/28/19 08:36 61 141/73 (95) 03/28/19 01:30 37.0 16 92 Capillary Refill : Less Than 3 Seconds General Appearance: No Apparent Distress, WD/WN, Chronically ill HEENT: PERRL/EOMI, Normal ENT Inspection, Pharynx Normal Neck: Full Range of Motion, Normal Inspection, Non Tender Respiratory: Chest Non Tender, Lungs Clear, Normal Breath Sounds, No Accessory Muscle Use, No Respiratory Distress, Decreased Breath Sounds Cardiovascular: Regular Rate, Rhythm, No Edema, No Gallop, No JVD, No Murmur, Normal Peripheral Pulses Gastrointestinal: Normal Bowel Sounds, No Organomegaly, No Pulsatile Mass, Non Tender, Soft Extremity: Normal Capillary Refill, Normal Inspection, Normal Range of Motion, Non Tender, No Calf Tenderness Neurologic/Psychiatric: Alert, Oriented x3, Normal Mood/Affect, operator prefinish II-XII Norm as Tested, Motor Weakness (left arm and leg) Results/Procedures Lab Patient resulted labs reviewed. FIM Transfers Therapy Code Descriptions/Definitions Functional [place] Measure: 0=Not Assessed/NA 4=Minimal Assistance 1=Total Assistance 5=Supervision or Setup 2=Maximal Assistance 6=Modified [place] 3=Moderate Assistance 7=Complete IndependenceSCALE: Activities may be completed with or without assistive devices. 8-Iuaifzeugn-jkgfcfg completes the activity by him/herself with no assistance from a helper. 5-Set-up or Clean-up Assistance-helper sets up or cleans up; patient completes activity. Indian assists only prior to or following the activity. 4-Supervision or Touching Assistance-helper provides verbal cues and/or touching/steadying and/or contact guard assistance as patient completes activity. Assistance may be provided throughout the activity or intermittently. 3-Partial/Moderate Assistance-helper does LESS THAN HALF the effort. Indian lifts, holds or supports trunk or limbs, but provides less than half the effort. 2-Substantial/Maximal Assistance-helper does MORE THAN HALF the effort. Indian lifts or holds trunk or limbs and provides more than half the effort. 0-Rxpzaulce-fyvppk does ALL the effort. Patient does none of the effort to complete the activity. Or, the assistance of 2 or more helpers is required for the patient to complete the activity. If activity was not attempted, code reason: 7-Patient Refused. 9-Not Applicable-not attempted and the patient did not perform the activity before the current illness, exacerbation or injury. 10-Not Attempted due to Environmental Limitations-(lack of equipment, weather restraints, etc.). 88-Not Attempted due to Medical Conditions or Safety Concerns. Roll Left to Right (QC): 5 Sit to Lying (QC): 4 Sit to Stand (QC): 3 Chair/Cuc-xh-Iygvz Xfer(QC): 3 Car Transfer (QC): 2 Gait Training Does the Patient Walk?: Yes Walk 50 ft with 2 Turns(QC): 88 Walk 150 ft (QC): 88 Walking 10ft/uneven surface-QC: 88 Gait Assistive Device: Parallel Bars Wheelchair Training Does the Pt Use a Wheelchair?: Yes Distance: 150' Wheel 50 ft with 2 turns (QC): 5 Wheel 150 ft (QC): 5 Type of Wheelchair: Manual Stair Training 1 Step (curb) (QC): 88 4 Steps (QC): 88 12 Steps (QC): 88 Balance Picking up an Object (QC): 88 ADL-Treatment Eating (QC): 6 (Per pt report, he is able to cut food and bring food to mouth without assistance. ) Oral Hygiene (QC): 5 (Set up, pt required assistance opening swab, pt able to swab his gums. Pt does not have his dentures at the hospital, declined using toothbrush to scrub his gums. ) Shower/Bathe Self (QC): 3 (Pt completed shower, requiring min A with LLE, and RUE. Mod A standing balance standing at [facility].) Upper Body Dressing (QC): 3 (Assist with threading LUE into shirt and with managing down ) Lower Body Dressing (QC): 2 (Assist threading BLEs, pt able to manage pants up.) On/Off Footwear (QC): 2 (Pt able to start putting on his sleeper onto his right foot, requiring assistance to get on the rest of the way, total assist requring to don left slipper.) Toileting Hygiene (QC): 3 (Pt able to place urinal and void, OT assisted with holding urinal in order for it not to spill. OT then emtied urinal for pt.) Assessment/Plan Assessment and Plan Assess & Plan/Chief Complaint Assessment: CVA Left-sided weakness Hypertension Current smoker Noncompliance Plan: Inpatient rehabilitation protocol Blood pressure control Monitor labs Maintain good bowel function (1) CVA (cerebral vascular accident) (2) Left-sided weakness (3) Noncompliance (4) Hypertension (5) Smoker YOLANDA KEITH DO Mar 27, 2019 09:21
[2019-03-27] MEDS: FOLIC ACID 1 MG TAB PO SCH (09:32)
[2019-03-27] MEDS: MAGNESIUM OXIDE (MAG-OX)400 MG TAB PO SCH ×2 (09:32→20:04)
[2019-03-27] MEDS: MULTIVITAMINS LIQUID 15 ML UDC PO SCH (09:32)
[2019-03-27] MEDS: SENNA W/DOCUSATE (SENOKOT S) TABLET PO SCH ×2 (09:32→20:03)
[2019-03-27] MEDS: DOCUSATE SODIUM 100 MG (COLACE) CAP PO SCH ×2 (09:32→20:02)
[2019-03-27] MEDS: ASPIRIN E.C. 81 MG (ECOTRIN) TAB PO SCH (09:33)
[2019-03-27] MEDS: amLODIPine 5 MG (NORVASC) TAB PO SCH (09:33)
[2019-03-27] MEDS: THIAMINE 100 MG (VITAMIN B-1) TAB PO SCH (09:33)
[2019-03-27] MEDS: POLYETHYLENE GLYCOL 17 GM (MIRALAX) PACK PO SCH ×2 (09:33→20:03)
--- NOTE | 2019-03-27 09:53 | Physical Therapy Daily Note ---
PT Daily Note-Current Subjective Patient in WC in room pre tx, agrees to PT, has no complaints of pain. Appearance Patient in bed post tx with nurse call, phone, tray, all needs met. Mental Status Patient Orientation: Person, Place, Situation Transfers SCALE: Activities may be completed with or without assistive devices. 7-Ebyyswajnl-mqssxup completes the activity by him/herself with no assistance from a helper. 5-Set-up or Clean-up Assistance-helper sets up or cleans up; patient completes activity. [place] assists only prior to or following the activity. 4-Supervision or Touching Assistance-helper provides verbal cues and/or touchi ng/steadying and/or contact guard assistance as patient completes activity. Assistance may be provided throughout the activity or intermittently. 3-Partial/Moderate Assistance-helper does LESS THAN HALF the effort. [place] lifts, holds or supports trunk or limbs, but provides less than half the effort. 2-Substantial/Maximal Assistance-helper does MORE THAN HALF the effort. [place] lifts or holds trunk or limbs and provides more than half the effort. 9-Vymhngcpp-slvuuv does ALL the effort. Patient does none of the effort to complete the activity. Or, the assistance of 2 or more helpers is required for the patient to complete the activity. If activity was not attempted, code reason: 7-Patient Refused. 9-Not Applicable-not attempted and the patient did not perform the activity before the current illness, exacerbation or injury. 10-Not Attempted due to Environmental Limitations-(lack of equipment, weather restraints, etc.). 88-Not Attempted due to Medical Conditions or Safety Concerns. Roll Left & Right (QC): 6 Sit to Lying (QC): 6 Lying to Sitting/Side of Bed(Q: 6 Sit to Stand (QC): 3 Chair/Pqj-ht-Vumys Xfer(QC): 3 Min assist for sit to stand and stand pivot transfer (to the right side) Gait Training Distance: 20'x3 Walk 10 feet (QC): 3 Gait Persons Needed: 1 Gait Assistive Device: Walker Moises WC follow, slightly impulsive, needs cues for sequence, uncoordinated steps especially with left leg, min assist with balance, leans to the left Wheelchair Training Does the Pt Use a Wheelchair?: Yes Wheel 50 ft with 2 turns (QC): 4 Wheel 150 ft (QC): 4 Type of Wheelchair: Manual 150'x2 Exercises NuStep Minutes: 15 NuStep Workload: 4 Treatments WC mobility, functional strengthening, ambulation, bed mobility and transfers Assessment Current Status: Fair Progress improved ambulation PT Short Term Goals Short Term Goals Time Frame: Apr 02, 2019 Roll Left & Right: 6 Sit to lyin Lying to sitting on side of be: 6 Sit to stand: 3 Chair/ywg-bn-ieqcm transfer: 3 Walk 10 feet: 3 Walk 50 feet with two turns: 3 PT Intermediate Goals Kick Press Setter Goals PT Kick Press Setter Goals Time Frame: Apr 16, 2019 Roll Left & Right (QC): 6 Sit to Lying (QC): 6 Lying-Sitting on Side/Bed(QC): 6 Sit to Stand (QC): 4 Chair/Uap-rm-Lrrnz Xfer(QC): 4 Toilet Transfer (QC): 4 Car Transfer (QC): 4 Walk 10 feet (QC): 3 Walk 50ft with 2 Turns (QC): 3 Walk 150 ft (QC): 3 Walking 10ft on Uneven Surface: 3 1 Step (curb) (QC): 3 4 Steps (QC): 3 PT Plan Problem List Problem List: Activity Tolerance, Functional Strength, Safety, Balance, Gait, Transfer Treatment/Plan Treatment Plan: Continue Plan of Care Treatment Plan: Bed Mobility, Education, Functional Activity Vlad, Functional Strength, Gait, Safety, Therapeutic Exercise, Transfers Treatment Duration: Apr 16, 2019 Frequency: At least 5 of 7 days/Wk (IRF) Estimated Hrs Per Day: 1.5 hours per day Patient and/or Family Agrees t: Yes Safety Risks/Education Patient Education: Gait Training, Transfer Techniques, Correct Positioning, Safety Issues Teaching Recipient: Patient Teaching Methods: Demonstration, Discussion Response to Teaching: Reinforcement Needed Time/GCodes Time In: 0900 Time Out: 1000 Total Billed Treatment Time: 60 Total Billed Treatment 1 visit GT 30' EX 15' ENEH 15' JESSE CAMACHO PT Mar 27, 2019 09:53
--- NOTE | 2019-03-27 10:20 | NUR ---
Pastoral care visit.
--- NOTE | 2019-03-27 11:09 | NUR ---
CM/SS ADMISSION Patient admitted to ARU 03/26/19 from [facility] for CVA with left-sided deficits. 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 He resided alone and intends to return to his home, his daughter indicates they will have a plan in place for his safety, either someone staying at home with him or him coming to her house in [place]. Patient describes that coworkers noticed a change in him, they had him assessed by EMS and then he went on home. He took BP Rx he had in reserve and rested, got up to go to bathroom, fell and couldn't get up. Luckily, he was talking to his daughter on the phone and she was able to summon help. He was taken to [facility] via private vehicle. DME: Patient has no DME, explore needs with therapy team as patient progresses. PCP: None established. Patient has history of visits with [facility] and agrees to re-establish care there at discharge. An appointment will need to be made on patient's behalf at the [facility]. INSURANCE: Uninsured even though employed FT with [employer] for approx 4 years per patient. [facility] records reflect they filed [place] Medicaid for patient, pending status. PHARMACY: Patient historically was to be taking BP Rx but he said he quit them, he has no pharmacy established but indicates when he used any it was [facility] in [place]. Patient will be able to use [facility] pharmacy once established, his choice. Depending on insurance status, [facility] may provide better benefit/discounts to maximize compliance. CONTACTS: Basil Le Maru, Daughter [address] [place] [address] Jey Mahoney, Son [address] [place] [address]
--- NOTE | 2019-03-27 13:41 | NUR ---
"RD ASSESSMENT PMHx: CVA; HTN PT INTERACTION: Pt was awake and pleasant during nutrition assessment. Pt states current appetite is pretty good and has been for some time. Note avg PO intake of 75% x2meal, per chart review. Pt states following a regular diet at home, and has no issues with chewing/swallowing food. Pt states no recent issues with n/v/c/d at this time, and that his last BM was 03/23. Note pt currently on bowel regimen of colace BID; miralax BID; senna BID, per chart review. Pt states no recent wt changes. Note unable to determine recent wt hx, per chart review. ABNORMAL NUTRITION-RELATED LAB VALUES LOW: Ca 8.2; Pro 6.2 HIGH: Cl 109 Est. kcal needs: 3012-7640 kcal | 20-25 kcal/kg Est. Pro needs: 80-100 g Pro | 0.8-1.0 g Pro/kg PES STATEMENT: Given pt's PO intake, no nutrition diagnosis at this time (NO-1.1) INTERVENTION: Continue with current diet order of Regular diet. Will continue to follow and reassess as pt needs and status change. MONITOR/EVALUATE: PO Intake; Plan of Care; Hydration Status; Weight Status; Lab Values Ace De La Garza, MS, RD, LD"
--- NOTE | 2019-03-27 14:22 | Physical Therapy Daily Note ---
PT Daily Note-Current Subjective Patient in bed pre tx, agrees to PT, has no complaints of pain. Appearance Patient BTB post tx with nurse call, phone, tray, all needs met. Mental Status Patient Orientation: Person, Place, Situation Transfers SCALE: Activities may be completed with or without assistive devices. 0-Fftunruoot-ybozara completes the activity by him/herself with no assistance from a helper. 5-Set-up or Clean-up Assistance-helper sets up or cleans up; patient completes activity. [place] assists only prior to or following the activity. 4-Supervision or Touching Assistance-helper provides verbal cues and/or touching/steadying and/or contact guard assistance as patient completes activity. Assistance may be provided throughout the activity or intermittently. 3-Partial/Moderate Assistance-helper does LESS THAN HALF the effort. [place] lifts, holds or supports trunk or limbs, but provides less than half the effort. 2-Substantial/Maximal Assistance-helper does MORE THAN HALF the effort. [place] lifts or holds trunk or limbs and provides more than half the effort. 4-Lvaxwlrje-ztousy does ALL the effort. Patient does none of the effort to complete the activity. Or, the assistance of 2 or more helpers is required for the patient to complete the activity. If activity was not attempted, code reason: 7-Patient Refused. 9-Not Applicable-not attempted and the patient did not perform the activity before the current illness, exacerbation or injury. 10-Not Attempted due to Environmental Limitations-(lack of equipment, weather restraints, etc.). 88-Not Attempted due to Medical Conditions or Safety Concerns. Roll Left & Right (QC): 6 Sit to Lying (QC): 6 Lying to Sitting/Side of Bed(Q: 6 Sit to Stand (QC): 4 Chair/Jnj-qg-Vybno Xfer(QC): 4 CGA for transfer either side, occasional cues for positioning Wheelchair Training Does the Pt Use a Wheelchair?: Yes Wheel 50 ft with 2 turns (QC): 4 Wheel 150 ft (QC): 4 Type of Wheelchair: Manual 150'x2 Exercises Supine Ex: Ankle pumps, Quad Set, Glut sets, Heel Slides, Short Arc Quads, Straight leg raise, Hip abd/add Supine Reps: 15 (just left leg) sit to stand 2 sets of 10 Treatments bed mobility and transfers, WC mobility, functional strengthening Assessment Current Status: Fair Progress improving transfer to left side PT Short Term Goals Short Term Goals Time Frame: Apr 02, 2019 Roll Left & Right: 6 Sit to lyin Lying to sitting on side of be: 6 Sit to stand: 3 Chair/ptj-cx-mcpzn transfer: 3 Walk 10 feet: 3 Walk 50 feet with two turns: 3 PT Blast Furnace Operator Goals Nursing Home Goals PT Blast Furnace Operator Goals Time Frame: Apr 16, 2019 Roll Left & Right (QC): 6 Sit to Lying (QC): 6 Lying-Sitting on Side/Bed(QC): 6 Sit to Stand (QC): 4 Chair/Glt-ua-Jjoel Xfer(QC): 4 Toilet Transfer (QC): 4 Car Transfer (QC): 4 Walk 10 feet (QC): 3 Walk 50ft with 2 Turns (QC): 3 Walk 150 ft (QC): 3 Walking 10ft on Uneven Surface: 3 1 Step (curb) (QC): 3 4 Steps (QC): 3 PT Plan Problem List Problem List: Activity Tolerance, Functional Strength, Safety, Balance, Gait, Transfer, Bed Mobility, ROM Treatment/Plan Treatment Plan: Continue Plan of Care Treatment Plan: Bed Mobility, Education, Functional Activity Vlad, Functional Strength, Gait, Safety, Therapeutic Exercise, Transfers Treatment Duration: May 02, 2019 Frequency: At least 5 of 7 days/Wk (IRF) Estimated Hrs Per Day: 1.5 hours per day Patient and/or Family Agrees t: Yes Safety Risks/Education Patient Education: Transfer Techniques, Correct Positioning, W/C Management, Safety Issues Teaching Recipient: Patient Teaching Methods: Demonstration, Discussion Response to Teaching: Reinforcement Needed Time/GCodes Time In: 1400 Time Out: 1430 Total Billed Treatment Time: 30 Total Billed Treatment 1 visit EX 20' FA 10' JESSE CAMACHO PT Mar 27, 2019 14:22
--- NOTE | 2019-03-27 14:47 | Speech Therapy Daily Note ---
Speech Daily Progress Note Subjective Date Seen by Provider: Mar 27, 2019 Time Seen by Provider: 13:00 Patient was alert and cooperative for all therapy tasks. Patient was in his bed for all therapy activities. Patient reported that his ex- will be bringing his dentures, however, was unsure of when. Objective Patient completed memory tasks with 90% accuracy and word finding tasks with 70% accuracy with moderate cues. Assessment Assessment Current Status: Good Progress Treatment Plan Continue Plan of Care Speech Short Term Goals Short Term Goals Short Term Goals 1. Patient will complete memory tasks with 90% or greater with minimal cues. 2. Patient will complete problem-solving tasks with 90% or greater with minimal cues. 3. Patient will complete safety awareness tasks with 90% or greater with minimal cues. 4. Patient will complete word finding tasks with 90% or greater with minimal cues. 5. Patient will complete speech production tasks with 90% or greater with minimal cues. Speech Academic Dean Goals Prison Goals Patient will improve cognitive-communication necessary for safety and daily living tasks with minimal assist. Speech-Plan Patient/Family Goals Patient/Family Goals: Patient reports wanting to return back home and prior level of independence. Treatment Plan Speech Therapy Treatment Plan: Continue Plan of Care Treatment Duration: Apr 03, 2019 Frequency: 5 times per week Estimated Hrs Per Day: .5 hour per day Rehab Potential: Good Barriers to Learning: CVA Pt/Family Agrees to Plan: Yes Safety Risks/Education Teaching Recipient: Patient Teaching Methods: Demonstration, Discussion Response to Teaching: Verbalize Understanding Education Topics Provided: Patient discussed safety awareness and areas of his home that will be modified upon his discharge from the ARU. Time Speech Therapy Time In: 13:00 Speech Therapy Time Out: 13:45 Total Billed Time: 45 Billed Treatment Time 1. SIN Powell Mar 27, 2019 14:47
--- NOTE | 2019-03-27 15:15 | NUR ---
Left message at Dr Ramírez office r/t podiatry consult
[2019-03-27] MEDS: ENOXAPARIN 40 MG/0.4 ML (LOVENOX) SYR SC SCH (15:48)
[2019-03-27] MEDS: CALCIUM CARBONATE 500 MG (TUMS) TAB.CHEW PO PRN ×2 (15:51→18:19)
--- NOTE | 2019-03-27 15:56 | NUR ---
CM/SS CONCURRENT NOTE Daughter requested DPOA paperwork for patient and his ex-, provided. They will review, staff to assist if needed.
[2019-03-27 18:36] VITALS: BP 147/79
[2019-03-28] MEDS: CALCIUM CARBONATE 500 MG (TUMS) TAB.CHEW PO PRN ×2 (00:34→09:45)
[2019-03-28 00:39] VITALS: BP 172/81
[2019-03-28 01:30] VITALS: BP 145/71
[2019-03-28 06:40] VITALS: BP 129/70
[2019-03-28] MEDS: ASPIRIN E.C. 81 MG (ECOTRIN) TAB PO SCH (08:30)
[2019-03-28] MEDS: FOLIC ACID 1 MG TAB PO SCH (08:30)
[2019-03-28] MEDS: POLYETHYLENE GLYCOL 17 GM (MIRALAX) PACK PO SCH ×2 (08:31→20:23)
[2019-03-28] MEDS: THIAMINE 100 MG (VITAMIN B-1) TAB PO SCH (08:31)
[2019-03-28] MEDS: DOCUSATE SODIUM 100 MG (COLACE) CAP PO SCH ×2 (08:31→20:22)
[2019-03-28] MEDS: MULTIVITAMINS LIQUID 15 ML UDC PO SCH (08:31)
[2019-03-28] MEDS: SENNA W/DOCUSATE (SENOKOT S) TABLET PO SCH ×2 (08:31→20:23)
[2019-03-28] MEDS: MAGNESIUM OXIDE (MAG-OX)400 MG TAB PO SCH ×2 (08:31→20:23)
[2019-03-28] MEDS: amLODIPine 5 MG (NORVASC) TAB PO SCH (08:32)
[2019-03-28 08:36] VITALS: BP 141/73
--- NOTE | 2019-03-28 10:12 | Physical Therapy Daily Note ---
PT Daily Note-Current Subjective Pt agreeable to PT session. Pt requesting TUMS for stomach burning, although stating doesn't work very well and is going to talk to the doctor about getting something stronger. C/O some nausea inconsistently throughout tx session Pain Numeric Pain Scale: 7 Comment: "my stomach is on fire" Appearance Pt in bed upon arrival, awake and alert. At end of session, pt sitting up in recliner with call light, phone and bedside table within reach. Mental Status Patient Orientation: Person, Place, Time, Eyes Open, Situation Transfers SCALE: Activities may be completed with or without assistive devices. 5-Pjdhkrjatp-wafribk completes the activity by him/herself with no assistance from a helper. 5-Set-up or Clean-up Assistance-helper sets up or cleans up; patient completes activity. [place] assists only prior to or following the activity. 4-Supervision or Touching Assistance-helper provides verbal cues and/or touching /steadying and/or contact guard assistance as patient completes activity. Assistance may be provided throughout the activity or intermittently. 3-Partial/Moderate Assistance-helper does LESS THAN HALF the effort. [place] lifts, holds or supports trunk or limbs, but provides less than half the effort. 2-Substantial/Maximal Assistance-helper does MORE THAN HALF the effort. [place] lifts or holds trunk or limbs and provides more than half the effort. 7-Taojueiye-swjjmu does ALL the effort. Patient does none of the effort to complete the activity. Or, the assistance of 2 or more helpers is required for the patient to complete the activity. If activity was not attempted, code reason: 7-Patient Refused. 9-Not Applicable-not attempted and the patient did not perform the activity before the current illness, exacerbation or injury. 10-Not Attempted due to Environmental Limitations-(lack of equipment, weather restraints, etc.). 88-Not Attempted due to Medical Conditions or Safety Concerns. Roll Left & Right (QC): 5 (use of bedrails) Lying to Sitting/Side of Bed(Q: 4 (HOB slightly elevated, use of bedrail) Sit to Stand (QC): 4 (CGA, unsteady but no LOB) Chair/Plu-xr-Ehlqk Xfer(QC): 3 (x3 reps between bed and chair with ~3-5 ft between each, CGA to min A for balance, guiding osmar walker and LUE, skilled verb inst for walker and LE sequencing) Treatments safety, education, transfer training, balance, sequencing, activity tolerance, functional mobility, bed mobility Assessment difficulty sequencing, LLE neglect at times requiring verb inst and tactile cuing to correct, unsteady, willing to learn and motivated PT Short Term Goals Short Term Goals Time Frame: Apr 02, 2019 Roll Left & Right: 6 Sit to lyin Lying to sitting on side of be: 6 Sit to stand: 3 Chair/psb-ft-fcutb transfer: 3 Walk 10 feet: 3 Walk 50 feet with two turns: 3 PT Care Home Goals [place]ter Goals PT Care Home Goals Time Frame: Apr 16, 2019 Roll Left & Right (QC): 6 Sit to Lying (QC): 6 Lying-Sitting on Side/Bed(QC): 6 Sit to Stand (QC): 4 Chair/Whf-nd-Qzvpw Xfer(QC): 4 Toilet Transfer (QC): 4 Car Transfer (QC): 4 Walk 10 feet (QC): 3 Walk 50ft with 2 Turns (QC): 3 Walk 150 ft (QC): 3 Walking 10ft on Uneven Surface: 3 1 Step (curb) (QC): 3 4 Steps (QC): 3 PT Plan Treatment/Plan Treatment Plan: Continue Plan of Care Treatment Plan: Bed Mobility, Education, Functional Activity Vlad, Functional Strength, Gait, Safety, Therapeutic Exercise, Transfers Treatment Duration: May 02, 2019 Frequency: At least 5 of 7 days/Wk (IRF) Estimated Hrs Per Day: 1.5 hours per day Patient and/or Family Agrees t: Yes Safety Risks/Education Patient Education: Gait Training, Transfer Techniques, Correct Positioning, Disease Process, Safety Issues Teaching Recipient: Patient Teaching Methods: Demonstration, Discussion Response to Teaching: Verbalize Understanding, Return Demonstration, Reinforcement Needed Time/GCodes Time In: 937 Time Out: 1003 Total Billed Treatment Time: 26 Total Billed Treatment 1 visit, FA x2 units JOSESITO MARQUES PTA Mar 28, 2019 10:12
--- NOTE | 2019-03-28 11:00 | PM&R Progress Note ---
Subjective HPI/CC On Admission Date Seen by Provider: Mar 28, 2019 Time Seen by Provider: 13:00 Subjective/Events-last exam Patient a bit diminished on the right lower lobe and lungs so will initiate incentive spirometer and do DuoNeb nebulizer treatments 3 times a day GERD is an issue at home and usually takes Zantac so will initiate Pepcid 20 MG twice daily along with Protonix Tums will be available for him No pain is reported Navigating pretty well with left-sided weakness Conferred with sample preparation supervisor therapy notes Checked meds and labs Review of Systems Gastrointestinal: Abdominal Pain Neurological: Weakness, Numbness, Incoordination Objective Exam Vital Signs Vital Signs Date Time Temp Pulse Resp B/P (MAP) Pulse Ox O2 Delivery O2 Flow Rate FiO2 03/28/19 09:59 Room Air 03/28/19 08:36 61 141/73 (95) 03/28/19 01:30 37.0 16 92 Capillary Refill : Less Than 3 Seconds General Appearance: No Apparent Distress, WD/WN, Chronically ill HEENT: PERRL/EOMI, Normal ENT Inspection, Pharynx Normal Neck: Full Range of Motion, Normal Inspection, Non Tender, Supple, Carotid Bruit Respiratory: Chest Non Tender, Lungs Clear, Normal Breath Sounds, No Accessory Muscle Use, No Respiratory Distress, Decreased Breath Sounds Cardiovascular: Regular Rate, Rhythm, No Edema, No Gallop, No JVD, No Murmur, Normal Peripheral Pulses Gastrointestinal: Normal Bowel Sounds, No Organomegaly, No Pulsatile Mass, Non Tender, Soft Back: Normal Inspection, No CVA Tenderness, No Vertebral Tenderness Extremity: Normal Capillary Refill, Normal Inspection, Normal Range of Motion, Non Tender, No Calf Tenderness, No Pedal Edema Neurologic/Psychiatric: Alert, Oriented x3, sales architect II-XII Norm as Tested, Depressed Affect, Motor Weakness (left arm and leg weakness) Skin: Normal Color, Warm/Dry Lymphatic: No Adenopathy Results/Procedures Lab Patient resulted labs reviewed. FIM Transfers Therapy Code Descriptions/Definitions Functional [place] Measure: 0=Not Assessed/NA 4=Minimal Assistance 1=Total Assistance 5=Supervision or Setup 2=Maximal Assistance 6=Modified [place] 3=Moderate Assistance 7=Complete IndependenceSCALE: Activities may be completed with or without assistive devices. 5-Tbhzrqfkzg-aqqetsj completes the activity by him/herself with no assistance from a helper. 5-Set-up or Clean-up Assistance-helper sets up or cleans up; patient completes activity. [place] assists only prior to or following the activity. 4-Supervision or Touching Assistance-helper provides verbal cues and/or touching/steadying and/or contact guard assistance as patient completes activity . Assistance may be provided throughout the activity or intermittently. 3-Partial/Moderate Assistance-helper does LESS THAN HALF the effort. [place] lifts, holds or supports trunk or limbs, but provides less than half the effort. 2-Substantial/Maximal Assistance-helper does MORE THAN HALF the effort. [place] lifts or holds trunk or limbs and provides more than half the effort. 0-Vtylgifgx-fejoyv does ALL the effort. Patient does none of the effort to complete the activity. Or, the assistance of 2 or more helpers is required for the patient to complete the activity. If activity was not attempted, code reason: 7-Patient Refused. 9-Not Applicable-not attempted and the patient did not perform the activity before the current illness, exacerbation or injury. 10-Not Attempted due to Environmental Limitations-(lack of equipment, weather restraints, etc.). 88-Not Attempted due to Medical Conditions or Safety Concerns. Roll Left to Right (QC): 5 (use of bedrails) Sit to Lying (QC): 6 Sit to Stand (QC): 4 (CGA, unsteady but no LOB) Chair/Uyb-fd-Mrtzl Xfer(QC): 3 (x3 reps between bed and chair with ~3-5 ft between each, CGA to min A for balance, guiding moises walker and LUE, skilled verb inst for walker and LE sequencing) Car Transfer (QC): 2 Gait Training Does the Patient Walk?: Yes Distance: 20'x3 Walk 10 feet (QC): 3 Walk 50 ft with 2 Turns(QC): 88 Walk 150 ft (QC): 88 Walking 10ft/uneven surface-QC: 88 Gait Persons Needed: 1 Gait Assistive Device: Walker Moises Wheelchair Training Does the Pt Use a Wheelchair?: Yes Distance: 150' Wheel 50 ft with 2 turns (QC): 4 Wheel 150 ft (QC): 4 Type of Wheelchair: Manual Stair Training 1 Step (curb) (QC): 88 4 Steps (QC): 88 12 Steps (QC): 88 Balance Picking up an Object (QC): 88 ADL-Treatment Eating (QC): 6 (Per pt report, he is able to cut food and bring food to mouth without assistance. ) Oral Hygiene (QC): 5 (Set up, pt required assistance opening swab, pt able to swab his gums. Pt does not have his dentures at the hospital, declined using toothbrush to scrub his gums. ) Shower/Bathe Self (QC): 3 (Pt completed shower, requiring min A with LLE, and RUE. Mod A standing balance standing at [facility].) Upper Body Dressing (QC): 3 (Assist with threading LUE into shirt and with managing down ) Lower Body Dressing (QC): 2 (Assist threading BLEs, pt able to manage pants up.) On/Off Footwear (QC): 2 (Pt able to start putting on his sleeper onto his right foot, requiring assistance to get on the rest of the way, total assist requring to don left slipper.) Toileting Hygiene (QC): 3 (Pt able to place urinal and void, OT assisted with holding urinal in order for it not to spill. OT then emtied urinal for pt.) Assessment/Plan Assessment and Plan Assess & Plan/Chief Complaint Assessment: CVA Left-sided weakness Hypertension Current smoker Noncompliance Reflux Diminished breath sounds in lower lobes Plan: Inpatient rehabilitation protocol Blood pressure control Monitor labs Maintain good bowel function Pepcid and Protonix Isha treatments Incentive spirometer (1) CVA (cerebral vascular accident) (2) Smoker (3) Hypertension (4) Noncompliance (5) Left-sided weakness (6) GERD (gastroesophageal reflux disease) YOLANDA KEITH DO Mar 28, 2019 11:00
--- NOTE | 2019-03-28 11:00 | Individualized Plan of Care ---
Individualized Plan of Care Rehab Nursing IPOC Order Admission Date Mar 26, 2019 at 14:15 Current Orders Orders Admission Order(Inpt,Obs,Sdc) (03/26/19 13:05) Curt Winn (03/26/19 13:05) Sequential Compression Device Q4H (03/26/19 13:05) Certified Cytotechnologist-Inpt Rehab Con (03/26/19 13:05) Rehab Nursing Orders-Ipoc (03/26/19 13:05) Physical Therapy Rehab Orders (03/26/19 13:05) Occupational Therapy Rehab Ord (03/26/19 13:05) Speech Therapy Rehab Orders (03/26/19 13:05) Cbc With Automated Diff (03/27/19 06:00) Comprehensive Metabolic Panel (03/27/19 06:00) General/Regular (03/26/19 Dinner) Intake & Output 06,14, (03/26/19 13:05) Weekly Weight WEEK (03/26/19 13:05) Rehab-Intensity Of Therapy (03/26/19 13:05) Initiate Admission Nursing Pro .admission (03/26/19 13:05) Acetaminophen Tablet (Tylenol Tablet) (03/26/19 13:15) Alprazolam Tablet (Xanax Tablet) (03/26/19 13:15) Calcium Carbonate Chew Tablet (Antacid C (03/26/19 13:15) Diphenhydramine Tablet (Benadryl Tablet) (03/26/19 13:15) Docusate Sodium Capsule (Colace Capsule) (03/26/19 21:00) Docusate Sodium Capsule (Colace Capsule) (03/26/19 13:15) Bisacodyl Suppository (Dulcolax Supposit (03/26/19 13:15) Lactulose Oral Solution (Enulose Oral So (03/26/19 13:15) Na Phos/Na Biphos Enema (Fleet Enema Anirudh (03/26/19 13:15) Guaifenesin/Codeine Syrup (Robitussin Ac (03/26/19 13:15) Loperamide Tablet (Imodium Tablet) (03/26/19 13:15) Enoxaparin Injection (Lovenox Injection) (03/26/19 15:00) Melatonin Tablet (Melatonin Tablet) (03/26/19 13:15) Polyethylene Glycol Powder Pkt (Miralax (03/26/19 21:00) Ondansetron Oral Dissolve Tab (Zofran (03/26/19 13:15) Senna S Tablet (Senokot S Tablet) (03/26/19 21:00) Code/Resuscitation (03/26/19 13:05) Admission Arrival Bed Request (03/26/19 14:15) Amlodipine Tablet (Norvasc Tablet) (03/27/19 09:00) Aspirin Enteric Coated Tablet (Ecotrin T (03/27/19 09:00) Atorvastatin Tablet (Lipitor) (03/26/19 21:00) Thiamine Tablet (Vitamin B-1 Tablet) (03/27/19 09:00) (Nf) Multivitamin With Folic Acid (Thera (03/27/19 09:00) Magnesium Oxide Tablet (Mag Ox Tablet) (03/26/19 21:00) Multivitamins Liquid (Geritol Liquid) (03/27/19 09:00) Folic Acid Tablet (Folic Acid Tablet) (03/27/19 09:00) Clonidine Tablet (Catapres Tablet) (03/26/19 15:30) Hydralazine Tablet (Apresoline Tablet) (03/26/19 15:30) Amlodipine Tablet (Norvasc Tablet) (03/26/19 15:30) Patient Visit (03/26/19 ) Speech Sound Lang Comp (03/26/19 ) Patient Visit (03/26/19 ) Pt Eval Moderate Complexity (03/26/19 ) Ambulate 08,12,20 (03/26/19 16:40) Sequential Compression Device Q4H (03/26/19 16:40) Dvt/Vte Risk - Notifiy Physici Q4H (03/26/19 16:40) Code/Resuscitation (03/26/19 20:12) Request Ot Evaluate & Treat (03/26/19 21:12) Consult Podiatry (03/26/19 22:00) Patient Visit (03/26/19 ) Functional Activities, Ea 15 (03/26/19 ) Patient Visit (03/27/19 ) Gait Training, Ea 15 Min (03/27/19 ) Wheelchair Mgmt/Propulsn 15min (03/27/19 ) Exercise Therap, Ea 15 Min (03/27/19 ) Functional Activities, Ea 15 (03/27/19 ) Consult Physician (03/27/19 15:16) Patient Visit (03/27/19 ) Treat. Speech/Lang/Voice (03/27/19 ) Patient Visit (03/28/19 ) Functional Activities, Ea 15 (03/28/19 ) Famotidine Tablet (Pepcid Tablet) (03/28/19 21:00) Pantoprazole Tablet (Protonix Tablet) (03/28/19 12:45) Albuterol/Ipra Inhalation Soln (Duoneb I (03/28/19 14:00) Svn Small Volume Nebulizer (03/28/19 12:36) Incentive Spirometry Initial (03/28/19 12:36) Incentive Spirometry (Nursing) Q2H (03/28/19 12:36) Therapeutic Multivitamin Tab (Vitamins, (03/29/19 07:00) Famotidine Tablet (Pepcid Tablet) (03/28/19 12:45) Famotidine Tablet (Pepcid Tablet) (03/28/19 12:44) Rehab Nursing Orders: Ongoing Assess. of Cognitive Status, Ongoing Assess. of Function Status, Bladder Management, Bladder Scan, Bladder Training, Bowel Management, Bowel Training, Disease Management & Educaiton, DVT Prophylaxis, Fall Prevention, Fluid/Electrolyte/Nutrition Mgmt, Infection Prevention, Medication Management & Education, Management of Risks & Complications, Nutrition Management, Pain Management, Patient/Family Support, Safety Management, Swallow Precautions Intensity of Therapy to be met Patient to be seen: Min.3h per day/5 of 7d PT IPOC Problem List: Activity Tolerance, Functional Strength, Safety, Balance, Gait, Transfer, Bed Mobility, ROM Treatment Plan: Continue Plan of Care Bed Mobility, Education, Functional Activity Vlad, Functional Strength, Gait, Safety, Therapeutic Exercise, Transfers Treatment Duration: May 02, 2019 Frequency: At least 5 of 7 days/Wk (IRF) Estimated Hrs Per Day: 1.5 hours per day OT IPOC Problems: Decreased Activ Tolerance, Decreased UE Strength, Impaired Coordination, Impaired I ADL's, Impaired Self-Care Skills, Restricted Funct UE ROM OT Treatment, Training and Edu: Yes Plan of Care: ADL Retraining, Caregiver Training, Functional Mobility, Group Exercise/Act as Ind, UE Funct Exercise/Act, UE Neuromus Re-Ed/Coord Treatment Duration: Apr 17, 2019 Frequency: At least 5 of 7 days/Wk (IRF) Estimated Hrs Per Day: 1.5 hours per day [facility] Speech Therapy Treatment Plan: Continue Plan of Care Treatment Duration: Apr 03, 2019 Frequency: 5 times per week Estimated Hrs Per Day: .5 hour per day Certified Cytotechnologist/Case Mgmt Certified Cytotechnologist/Case Managemen: Discharge Planning Dietitian/Splunk Dashboard Developer Dietitian/Splunk Dashboard Developer to monitor nutritional status and make changes and/or recommendations as needed and work with speech pathology on dietary upgrades as the occur. Physician [facility] Medical Issues being managed closely and that require the 24 hour availability of a physician: Patient with recent stroke with right sided hemiparesis and high risk for decompensation due to labile hypertension Medical Issues: Bowel/Bladder Function, DVT Prophylaxis, Falls Precautions, Fluid/Electrolyte/Nutrition Balance, Infection Protection, Pain Management Brief Synthesis of Preadmission Screen, Post-Admission Evaluation, and Therapy Evaluations: PT and OT will help regain function of left-sided weakness to be able to ambulate with platform walker and regain independent ADLs Medical Prognosis: Good Anticipated Length of Stay: 10 days YOLANDA KEITH DO Mar 28, 2019 11:00
[2019-03-28] MEDS ORDERED: FAMOTIDINE 20 MG (PEPCID) TABLET ONE (12:44)
[2019-03-28] MEDS: FAMOTIDINE 20 MG (PEPCID) TABLET PO SCH ×2 (12:48→20:23)
[2019-03-28] MEDS: PANTOPRAZOLE 40 MG (PROTONIX) TAB PO SCH (12:49)
--- NOTE | 2019-03-28 12:52 | NUR ---
DR. KEITH TO THE FLOOR. INFORMED OF C/O INDIGESTION AND SLIGHTLY COARSE RIGHT LUNG SOUNDS. ORDERS TO START PEPCID- 20 MG PO BID AND PROTONIX- 40 MG PO DAILY. DUONEB TREATMENTS TID AND I/S TO BEDSIDE. ALSO, OK TO CHANGE MULTIVITAMIN FROM LIQUID TO ORAL FORM.
[2019-03-28] MEDS: RT-ALBUTEROL/IPRATROPIUM 3 ML (DUONEB) VIAL INH SCH ×2 (15:00→22:11)
[2019-03-28] MEDS: ENOXAPARIN 40 MG/0.4 ML (LOVENOX) SYR SC SCH (15:48)
[2019-03-28 17:52] VITALS: BP 124/76
[2019-03-28] MEDS ORDERED: FAMOTIDINE 20 MG (PEPCID) TABLET PO SCH (21:00)
[2019-03-29 05:01] VITALS: BP 149/57
[2019-03-29] MEDS: MULTIVIT W/MINERALS TAB (THERAGRAN M) PO SCH (06:11)
[2019-03-29] MEDS: FAMOTIDINE 20 MG (PEPCID) TABLET PO SCH ×2 (08:08→20:26)
[2019-03-29] MEDS: THIAMINE 100 MG (VITAMIN B-1) TAB PO SCH (08:08)
[2019-03-29] MEDS: FOLIC ACID 1 MG TAB PO SCH (08:08)
[2019-03-29] MEDS: POLYETHYLENE GLYCOL 17 GM (MIRALAX) PACK PO SCH ×2 (08:08→20:26)
[2019-03-29] MEDS: DOCUSATE SODIUM 100 MG (COLACE) CAP PO SCH ×2 (08:08→20:26)
[2019-03-29] MEDS: MAGNESIUM OXIDE (MAG-OX)400 MG TAB PO SCH ×2 (08:08→20:26)
[2019-03-29] MEDS: amLODIPine 5 MG (NORVASC) TAB PO SCH (08:08)
[2019-03-29] MEDS: ASPIRIN E.C. 81 MG (ECOTRIN) TAB PO SCH (08:08)
[2019-03-29] MEDS: SENNA W/DOCUSATE (SENOKOT S) TABLET PO SCH ×2 (08:08→20:26)
[2019-03-29] MEDS: PANTOPRAZOLE 40 MG (PROTONIX) TAB PO SCH (08:08)
[2019-03-29 08:09] VITALS: BP 138/73
--- NOTE | 2019-03-29 08:26 | NUR ---
DENIES INDIGESTION AND NAUSEA SINCE STARTING NEW MEDICATION. NO COMPLAINTS AT THIS TIME.
[2019-03-29] MEDS: RT-ALBUTEROL/IPRATROPIUM 3 ML (DUONEB) VIAL INH SCH ×2 (08:35→16:56)
--- NOTE | 2019-03-29 12:30 | PM&R Progress Note ---
Subjective HPI/CC On Admission Date Seen by Provider: Mar 29, 2019 Time Seen by Provider: 12:00 Subjective/Events-last exam DuoNeb nebulizer treatments 3 times a day and IS has been helpful GERD is an issue at home and usually takes Zantac so initiated Pepcid 20 MG twice daily along with Protonix and that has worked very well for him now Tums will be available for him to take prn No pain is reported Navigating pretty well with left-sided weakness and arm and hand seems to have the most residual but left leg is doing extremely well Conferred with hemotherapist therapy notes Checked meds and labs Review of Systems Neurological: Weakness, Numbness, Incoordination Objective Exam Vital Signs Vital Signs Date Time Temp Pulse Resp B/P (MAP) Pulse Ox O2 Delivery O2 Flow Rate FiO2 03/29/19 09:46 Room Air 03/29/19 08:09 68 138/73 (94) 03/29/19 05:01 37.0 16 96 Capillary Refill : Less Than 3 Seconds General Appearance: No Apparent Distress, WD/WN, Chronically ill HEENT: PERRL/EOMI, Normal ENT Inspection, Pharynx Normal Neck: Full Range of Motion, Normal Inspection, Non Tender, Supple, Carotid Bruit Respiratory: Chest Non Tender, Lungs Clear, Normal Breath Sounds, No Accessory Muscle Use, No Respiratory Distress, Decreased Breath Sounds Cardiovascular: Regular Rate, Rhythm, No Edema, No Gallop, No JVD, No Murmur, Normal Peripheral Pulses Gastrointestinal: Normal Bowel Sounds, No Organomegaly, No Pulsatile Mass, Non Tender, Soft Back: Normal Inspection, No CVA Tenderness, No Vertebral Tenderness Extremity: Normal Capillary Refill, Normal Inspection, Normal Range of Motion, Non Tender, No Calf Tenderness, No Pedal Edema Neurologic/Psychiatric: Alert, Oriented x3, corporation lawyer II-XII Norm as Tested, Depressed Affect, Motor Weakness (left arm and leg weakness) Skin: Normal Color, Warm/Dry Lymphatic: No Adenopathy Results/Procedures Lab Patient resulted labs reviewed. FIM Transfers Therapy Code Descriptions/Definitions Functional [place] Measure: 0=Not Assessed/NA 4=Minimal Assistance 1=Total Assistance 5=Supervision or Setup 2=Maximal Assistance 6=Modified [place] 3=Moderate Assistance 7=Complete IndependenceSCALE: Activities may be completed with or without assistive devices. 1-Tlznysyfnt-eocooyi completes the activity by him/herself with no assistance from a helper. 5-Set-up or Clean-up Assistance-helper sets up or cleans up; patient completes activity. [place] assists only prior to or following the activity. 4-Supervision or Touching Assistance-helper provides verbal cues and/or touching/steadying and/or contact guard assistance as patient completes activit y. Assistance may be provided throughout the activity or intermittently. 3-Partial/Moderate Assistance-helper does LESS THAN HALF the effort. [place] lifts, holds or supports trunk or limbs, but provides less than half the effort. 2-Substantial/Maximal Assistance-helper does MORE THAN HALF the effort. [place] lifts or holds trunk or limbs and provides more than half the effort. 4-Nybxkgezc-ibqkqa does ALL the effort. Patient does none of the effort to complete the activity. Or, the assistance of 2 or more helpers is required for the patient to complete the activity. If activity was not attempted, code reason: 7-Patient Refused. 9-Not Applicable-not attempted and the patient did not perform the activity before the current illness, exacerbation or injury. 10-Not Attempted due to Environmental Limitations-(lack of equipment, weather restraints, etc.). 88-Not Attempted due to Medical Conditions or Safety Concerns. Roll Left to Right (QC): 5 (use of bedrails) Sit to Lying (QC): 6 Sit to Stand (QC): 4 (CGA, unsteady but no LOB) Chair/Lce-se-Ojwth Xfer(QC): 3 (x3 reps between bed and chair with ~3-5 ft between each, CGA to min A for balance, guiding moises walker and LUE, skilled verb inst for walker and LE sequencing) Car Transfer (QC): 2 Gait Training Does the Patient Walk?: Yes Distance: 20'x3 Walk 10 feet (QC): 3 Walk 50 ft with 2 Turns(QC): 88 Walk 150 ft (QC): 88 Walking 10ft/uneven surface-QC: 88 Gait Persons Needed: 1 Gait Assistive Device: Walker Moises Wheelchair Training Does the Pt Use a Wheelchair?: Yes Distance: 150' Wheel 50 ft with 2 turns (QC): 4 Wheel 150 ft (QC): 4 Type of Wheelchair: Manual Stair Training 1 Step (curb) (QC): 88 4 Steps (QC): 88 12 Steps (QC): 88 Balance Picking up an Object (QC): 88 ADL-Treatment Eating (QC): 6 (Per pt report, he is able to cut food and bring food to mouth without assistance. ) Oral Hygiene (QC): 5 (Set up, pt required assistance opening swab, pt able to swab his gums. Pt does not have his dentures at the hospital, declined using toothbrush to scrub his gums. ) Shower/Bathe Self (QC): 3 (Pt completed shower, requiring min A with LLE, and RUE. Mod A standing balance standing at [facility].) Upper Body Dressing (QC): 3 (Assist with threading LUE into shirt and with managing down ) Lower Body Dressing (QC): 2 (Assist threading BLEs, pt able to manage pants up.) On/Off Footwear (QC): 2 (Pt able to start putting on his sleeper onto his right foot, requiring assistance to get on the rest of the way, total assist requring to don left slipper.) Toileting Hygiene (QC): 3 (Pt able to place urinal and void, OT assisted with holding urinal in order for it not to spill. OT then emtied urinal for pt.) Assessment/Plan Assessment and Plan Assess & Plan/Chief Complaint Assessment: CVA Left-sided weakness Hypertension Current smoker Noncompliance Reflux Diminished breath sounds in lower lobes Plan: Inpatient rehabilitation protocol Blood pressure control Monitor labs Maintain good bowel function Pepcid and Protonix Neb treatments Incentive spirometer (1) CVA (cerebral vascular accident) (2) Smoker (3) Hypertension (4) Noncompliance (5) Left-sided weakness (6) GERD (gastroesophageal reflux disease) YOLANDA KEITH DO Mar 29, 2019 12:30
[2019-03-29] MEDS: ENOXAPARIN 40 MG/0.4 ML (LOVENOX) SYR SC SCH (15:46)
[2019-03-29 17:28] VITALS: BP 142/85
[2019-03-30] MEDS: RT-ALBUTEROL/IPRATROPIUM 3 ML (DUONEB) VIAL INH SCH ×4 (01:11→19:19)
[2019-03-30 05:06] VITALS: BP 147/65
[2019-03-30] MEDS: MULTIVIT W/MINERALS TAB (THERAGRAN M) PO SCH (05:15)
[2019-03-30 06:11] LABS: BASOPHILS # (AUTO) 0.1 10^3/uL (0.0-0.1); BASOPHILS % (AUTO) 1 % (0-10); EOSINOPHILS # (AUTO) 0.5 10^3/uL (0.0-0.3); EOSINOPHILS % (AUTO) 6 % (0-10); HEMATOCRIT 46 % (40-54); HEMOGLOBIN 15.6 G/DL (13.3-17.7); LYMPHOCYTES # (AUTO) 2.5 X 10^3 (1.0-4.0); LYMPHOCYTES % (AUTO) 28 % (12-44); MEAN CORPUSCULAR HEMOGLOBIN 29 PG (25-34); MEAN CORPUSCULAR HGB CONC 34 G/DL (32-36); MEAN CORPUSCULAR VOLUME 87 FL (80-99); MEAN PLATELET VOLUME 11.5 FL (7.4-10.4); MONOCYTES # (AUTO) 0.9 X 10^3 (0.0-1.0); MONOCYTES % (AUTO) 10 % (0-12); NEUTROPHILS % (AUTO) 55 % (42-75); PLATELET COUNT 184 10^3/uL (130-400); RED CELL DISTRIBUTION WIDTH 12.9 % (10.0-14.5)
[2019-03-30 06:36] LABS: ALANINE AMINOTRANSFERASE 53 U/L (0-55); ALBUMIN 3.5 GM/DL (3.2-4.5); ALKALINE PHOSPHATASE 68 U/L (40-136); BILIRUBIN,TOTAL 0.3 MG/DL (0.1-1.0); BUN/CREATININE RATIO 16; CALCIUM 8.4 MG/DL (8.5-10.1); CARBON DIOXIDE 20 MMOL/L (21-32); CHLORIDE 108 MMOL/L (98-107); GFR ESTIMATED > 60; GLUCOSE 106 MG/DL (70-105); POTASSIUM 4.2 MMOL/L (3.6-5.0); SODIUM 137 MMOL/L (135-145); TOTAL PROTEIN 6.5 GM/DL (6.4-8.2)
[2019-03-30] MEDS: FOLIC ACID 1 MG TAB PO SCH (08:50)
[2019-03-30] MEDS: amLODIPine 5 MG (NORVASC) TAB PO SCH (08:50)
[2019-03-30] MEDS: THIAMINE 100 MG (VITAMIN B-1) TAB PO SCH (08:50)
[2019-03-30] MEDS: ASPIRIN E.C. 81 MG (ECOTRIN) TAB PO SCH (08:50)
[2019-03-30] MEDS: FAMOTIDINE 20 MG (PEPCID) TABLET PO SCH ×2 (08:50→20:10)
[2019-03-30] MEDS: MAGNESIUM OXIDE (MAG-OX)400 MG TAB PO SCH ×2 (08:50→20:10)
[2019-03-30] MEDS: PANTOPRAZOLE 40 MG (PROTONIX) TAB PO SCH (08:50)
[2019-03-30] MEDS: DOCUSATE SODIUM 100 MG (COLACE) CAP PO SCH ×2 (08:52→20:11)
[2019-03-30] MEDS: POLYETHYLENE GLYCOL 17 GM (MIRALAX) PACK PO SCH ×2 (08:53→20:10)
[2019-03-30] MEDS: SENNA W/DOCUSATE (SENOKOT S) TABLET PO SCH ×2 (08:53→20:10)
--- NOTE | 2019-03-30 09:52 | Physical Therapy Daily Note ---
PT Daily Note-Current Subjective Patient in bed pre tx, agrees to PT, no complaints of pain. Appearance Patient in WC in room with nurse call, phone, tray, all needs met. Has OT right after PT. Mental Status Patient Orientation: Normal For Age Transfers SCALE: Activities may be completed with or without assistive devices. 7-Dltyqwaxdy-lzeedoa completes the activity by him/herself with no assistance from a helper. 5-Set-up or Clean-up Assistance-helper sets up or cleans up; patient completes activity. [place] assists only prior to or following the activity. 4-Supervision or Touching Assistance-helper provides verbal cues and/or touc vicki/steadying and/or contact guard assistance as patient completes activity. Assistance may be provided throughout the activity or intermittently. 3-Partial/Moderate Assistance-helper does LESS THAN HALF the effort. [place] lifts, holds or supports trunk or limbs, but provides less than half the effort. 2-Substantial/Maximal Assistance-helper does MORE THAN HALF the effort. [place] lifts or holds trunk or limbs and provides more than half the effort. 9-Sapqwtstu-jxmvif does ALL the effort. Patient does none of the effort to complete the activity. Or, the assistance of 2 or more helpers is required for the patient to complete the activity. If activity was not attempted, code reason: 7-Patient Refused. 9-Not Applicable-not attempted and the patient did not perform the activity before the current illness, exacerbation or injury. 10-Not Attempted due to Environmental Limitations-(lack of equipment, weather restraints, etc.). 88-Not Attempted due to Medical Conditions or Safety Concerns. Roll Left & Right (QC): 6 Lying to Sitting/Side of Bed(Q: 6 Sit to Stand (QC): 4 Chair/Fso-ac-Erevl Xfer(QC): 4 Patient practiced transfers to both sides, CGA to the left and SBA to the right, did several times each side, cues for positioning when going to the left. Gait Training Distance: 80'x3 Walk 10 feet (QC): 4 Walk 50 ft with 2 Turns(QC): 4 Walk 150 ft (QC): 4 Gait Persons Needed: 1 Gait Assistive Device: Walker Moises Patient ambulates slowly, CGA, occasional cue for sequencing. Occasional assist with balance. Better step through each side and improved coordination. Wheelchair Training Does the Pt Use a Wheelchair?: Yes Wheel 50 ft with 2 turns (QC): 4 Wheel 150 ft (QC): 4 Type of Wheelchair: Manual SBA, used both legs to help propel, occasional cues for dragging left foot Exercises LAQ left side for 5 min with 2# ankle weight NuStep Minutes: 15 NuStep Workload: 5 Treatments WC mobility, bed mobility and transfers, ambulation, functional strengthening Assessment Current Status: Fair Progress improved ambulation PT Short Term Goals Short Term Goals Time Frame: Apr 02, 2019 Roll Left & Right: 6 Sit to lyin Lying to sitting on side of be: 6 Sit to stand: 3 Chair/qii-pf-yfycg transfer: 3 Walk 10 feet: 3 Walk 50 feet with two turns: 3 PT Assembler Knife Goals Fpc Goals PT Fpc Goals Time Frame: Apr 16, 2019 Roll Left & Right (QC): 6 Sit to Lying (QC): 6 Lying-Sitting on Side/Bed(QC): 6 Sit to Stand (QC): 4 Chair/Kor-jb-Hadcw Xfer(QC): 4 Toilet Transfer (QC): 4 Car Transfer (QC): 4 Walk 10 feet (QC): 3 Walk 50ft with 2 Turns (QC): 3 Walk 150 ft (QC): 3 Walking 10ft on Uneven Surface: 3 1 Step (curb) (QC): 3 4 Steps (QC): 3 PT Plan Problem List Problem List: Activity Tolerance, Functional Strength, Safety, Balance, Gait, Transfer, Bed Mobility, ROM Treatment/Plan Treatment Plan: Continue Plan of Care Treatment Plan: Bed Mobility, Education, Functional Activity Vlad, Functional Strength, Gait, Safety, Therapeutic Exercise, Transfers Treatment Duration: May 02, 2019 Frequency: At least 5 of 7 days/Wk (IRF) Estimated Hrs Per Day: 1.5 hours per day Patient and/or Family Agrees t: Yes Safety Risks/Education Patient Education: Gait Training, Transfer Techniques, Correct Positioning, W/C Management, Safety Issues Teaching Recipient: Patient Teaching Methods: Demonstration, Discussion Response to Teaching: Reinforcement Needed Time/GCodes Time In: 900 Time Out: 1000 Total Billed Treatment Time: 60 Total Billed Treatment 1 visit GT 20' FA 40 JESSE CAMACHO PT Mar 30, 2019 09:52
--- NOTE | 2019-03-30 11:06 | PM&R Progress Note ---
Subjective HPI/CC On Admission Date Seen by Provider: Mar 30, 2019 Time Seen by Provider: 09:00 Subjective/Events-last exam Consulting Dr. Barfield for toenail care. Large BM yesterday. Left air tucker improved. Nebulizer treatments maintained along with IS. Conferred with crisis nurse therapy notes Checked meds and labs Review of Systems Neurological: Weakness, Numbness, Incoordination Objective Exam Vital Signs Vital Signs Date Time Temp Pulse Resp B/P (MAP) Pulse Ox O2 Delivery O2 Flow Rate FiO2 03/31/19 05:30 36.8 82 20 139/80 (99) 97 Room Air Capillary Refill : Less Than 3 Seconds General Appearance: No Apparent Distress, WD/WN, Chronically ill HEENT: PERRL/EOMI, Normal ENT Inspection, Pharynx Normal Neck: Full Range of Motion, Normal Inspection, Non Tender, Supple, Carotid Bruit Respiratory: Chest Non Tender, Lungs Clear, Normal Breath Sounds, No Accessory Muscle Use, No Respiratory Distress, Decreased Breath Sounds Cardiovascular: Regular Rate, Rhythm, No Edema, No Gallop, No JVD, No Murmur, Normal Peripheral Pulses Gastrointestinal: Normal Bowel Sounds, No Organomegaly, No Pulsatile Mass, Non Tender, Soft Back: Normal Inspection, No CVA Tenderness, No Vertebral Tenderness Extremity: Normal Capillary Refill, Normal Inspection, Normal Range of Motion, Non Tender, No Calf Tenderness, No Pedal Edema Neurologic/Psychiatric: Alert, Oriented x3, foreign trade teacher II-XII Norm as Tested, Depressed Affect, Motor Weakness (left arm and leg weakness) Skin: Normal Color, Warm/Dry Lymphatic: No Adenopathy Results/Procedures Lab Patient resulted labs reviewed. FIM Transfers Therapy Code Descriptions/Definitions Functional [place] Measure: 0=Not Assessed/NA 4=Minimal Assistance 1=Total Assistance 5=Supervision or Setup 2=Maximal Assistance 6=Modified [place] 3=Moderate Assistance 7=Complete IndependenceSCALE: Activities may be completed with or without assistive devices. 8-Kjgdqmhvjf-hhnpmqw completes the activity by him/herself with no assistance from a helper. 5-Set-up or Clean-up Assistance-helper sets up or cleans up; patient completes activity. [place] assists only prior to or following the activity. 4-Supervision or Touching Assistance-helper provides verbal cues and/or touching/steadying and/or contact guard assistance as patient completes activity. Assistance may be provided throughout the activity or intermittently. 3-Partial/Moderate Assistance-helper does LESS THAN HALF the effort. [place] lifts, holds or supports trunk or limbs, but provides less than half the effort. 2-Substantial/Maximal Assistance-helper does MORE THAN HALF the effort. [place] lifts or holds trunk or limbs and provides more than half the effort. 0-Lwvvxnmox-tnaijb does ALL the effort. Patient does none of the effort to complete the activity. Or, the assistance of 2 or more helpers is required for the patient to complete the activity. If activity was not attempted, code reason: 7-Patient Refused. 9-Not Applicable-not attempted and the patient did not perform the activity before the current illness, exacerbation or injury. 10-Not Attempted due to Environmental Limitations-(lack of equipment, weather restraints, etc.). 88-Not Attempted due to Medical Conditions or Safety Concerns. Roll Left to Right (QC): 6 Sit to Lying (QC): 6 Sit to Stand (QC): 4 Chair/Nay-gv-Zaets Xfer(QC): 4 Car Transfer (QC): 2 Gait Training Does the Patient Walk?: Yes Distance: 80'x3 Walk 10 feet (QC): 4 Walk 50 ft with 2 Turns(QC): 4 Walk 150 ft (QC): 4 Walking 10ft/uneven surface-QC: 88 Gait Persons Needed: 1 Gait Assistive Device: Walker Moises Wheelchair Training Does the Pt Use a Wheelchair?: Yes Distance: 150' Wheel 50 ft with 2 turns (QC): 4 Wheel 150 ft (QC): 4 Type of Wheelchair: Manual Stair Training 1 Step (curb) (QC): 88 4 Steps (QC): 88 12 Steps (QC): 88 Balance Picking up an Object (QC): 88 ADL-Treatment Eating (QC): 6 (Per pt report, he is able to cut food and bring food to mouth without assistance. ) Oral Hygiene (QC): 5 (Set up, pt required assistance opening swab, pt able to swab his gums. Pt does not have his dentures at the hospital, declined using toothbrush to scrub his gums. ) Shower/Bathe Self (QC): 3 (Pt completed shower, requiring min A with LLE, and RUE. Mod A standing balance standing at [facility].) Upper Body Dressing (QC): 3 (Assist with threading LUE into shirt and with managing down ) Lower Body Dressing (QC): 2 (Assist threading BLEs, pt able to manage pants up.) On/Off Footwear (QC): 2 (Pt able to start putting on his sleeper onto his right foot, requiring assistance to get on the rest of the way, total assist requring to don left slipper.) Toileting Hygiene (QC): 3 (Pt able to place urinal and void, OT assisted with holding urinal in order for it not to spill. OT then emtied urinal for pt.) Assessment/Plan Assessment and Plan Assess & Plan/Chief Complaint Assessment: CVA Left-sided weakness Hypertension Current smoker Noncompliance Reflux Diminished breath sounds in lower lobes Plan: Inpatient rehabilitation protocol Blood pressure control Monitor labs Maintain good bowel function Pepcid and Protonix Neb treatments Incentive spirometer (1) CVA (cerebral vascular accident) (2) Smoker (3) Hypertension (4) Noncompliance (5) Left-sided weakness (6) GERD (gastroesophageal reflux disease) YOLANDA KEITH DO Mar 30, 2019 11:06
--- NOTE | 2019-03-30 11:32 | Occupational Ther Daily Note ---
OT Current Status-Daily Note Subjective Pt seen in w/c post-PT session. pt agreeable to OT tx session, states no pain currently. Pt denies all ADLs, stating he has showered yesterday. Pt demonstrates UE strength and states he would like to work on UE movement. ADL-Treatment Therapy Code Descriptions/Definitions Functional [place] Measure: 0=Not Assessed/NA 4=Minimal Assistance 1=Total Assistance 5=Supervision or Setup 2=Maximal Assistance 6=Modified [place] 3=Moderate Assistance 7=Complete IndependenceSCALE: Activities may be completed with or without assistive devices. 4-Axxpobbdhj-hvzrtsh completes the activity by him/herself with no assistance from a helper. 5-Set-up or Clean-up Assistance-helper sets up or cleans up; patient completes activity. [place] assists only prior to or following the activity. 4-Supervision or Touching Assistance-helper provides verbal cues and/or touching/steadying and/or contact guard assistance as patient completes activity. Assistance may be provided throughout the activity or intermittently. 3-Partial/Moderate Assistance-helper does LESS THAN HALF the effort. [place] lifts, holds or supports trunk or limbs, but provides less than half the effort. 2-Substantial/Maximal Assistance-helper does MORE THAN HALF the effort. [place] lifts or holds trunk or limbs and provides more than half the effort. 8-Difdinibg-ctheak does ALL the effort. Patient does none of the effort to complete the activity. Or, the assistance of 2 or more helpers is required for the patient to complete the activity. If activity was not attempted, code reason: 7-Patient Refused. 9-Not Applicable-not attempted and the patient did not perform the activity before the current illness, exacerbation or injury. 10-Not Attempted due to Environmental Limitations-(lack of equipment, weather restraints, etc.). 88-Not Attempted due to Medical Conditions or Safety Concerns. Shower/Bathe Self (QC): 7 Upper Body Dressing (QC): 7 Lower Body Dressing (QC): 7 On/Off Footwear: 7 Other Treatment Pt completes w/c mob with BLE, pt requires reminders for LLE placement on arm rest as pt's arm hangs toward wheel. Pt completes knowledge analyst/ pinch strength testing: R knowledge analyst 100 lbs, L knowledge analyst 25 lbs; R pinch (3 jaw) 20 lbs, L pinch 12 lbs. Pt educated on difference. Pt educated on NM exercises that he is able to complete in room, purpose of exercise, and brain plasticity. Pt completes neuromuscular exercises to increase LUE strength, control, and manipulation. Pt completes AROM/AAROM of BUE with 1# weighted bar, completes AROM of LUE to ~120*, completes AAROM to ~175* shoulder flexion. pt completes reaching in gravity eliminated (pt's hand placed on towel on table), completes 15 sets of each 2x: shoulder flexion/ extension, shoulder ab/adduction (horizontal), elbow flexion/ extension. Pt requires cues for breathing techniques during strenuous activity. Pt completes in hand manipulation task with yellow theraputty and hand sponges, requires cues for placement of each. Pt returns to room, educated of use of materials for NM ex with room environment. Pt completes bed mob with squat-pivot transfer from w/c to bed, sit- supine and supine-sit mod I, and transfers to w/c with squat pivot and CGA. Pt left in w/c with nursing present, call light in reach, all needs met. Education OT Patient Education: Correct positioning, Exercise program, Home exercise program, Purpose of tx/functional activities, Safety issues, W/C management Teaching Recipient: Patient Teaching Methods: Demonstration, Discussion Response to Teaching: Verbalize Understanding, Return Demonstration, Reinfo rcement Needed OT Short Term Goals Short Term Goals Time Frame: Apr 08, 2019 Shower/bathe self: 4 Lower body dressin Putting on/taking off footwear: 4 OT Closing Machine Operator Goals Closing Machine Operator Goals Time Frame: Apr 17, 2019 Eating (QC): 6 Oral Hygiene (QC): 6 Toileting Hygiene (QC): 6 Shower/Bathe Self (QC): 6 Upper Body Dressing (QC): 6 Lower Body Dressing (QC): 6 On/Off Footwear (QC): 6 Additional Goals: 1-Demonstrate ADL Tasks, 2-Verbalize Understanding, 3- ImproveStrength/Vlad 1=Demonstrate adherence to instructed precautions during ADL tasks. 2=Patient will verbalize/demonstrate understanding of assistive devices/modifications for ADL. 3=Patient will improve strength/tolerance for activity to enable patient to perform ADL's. OT Education/Plan Problem List/Assessment Assessment: Decreased Activ Tolerance, Decreased UE Strength, Dependent Transfers, Impaired Coordination, Impaired I ADL's, Impaired Self-Care Skills, Restricted Funct UE ROM Discharge Recommendations Plan/Recommendations: Continue POC Therapy Discharge Recommendati: Home & Family, Post Acute OT Treatment Plan/Plan of Care Treatment,Training & Education: Yes Patient would benefit from OT for education, treatment and training to promote independence in ADL's, mobility, safety and/or upper extremity function for ADL's. Plan of Care: ADL Retraining, Caregiver Training, Functional Mobility, Group Exercise/Act as Ind, UE Funct Exercise/Act, UE Neuromus Re-Ed/Coord Treatment Duration: Apr 17, 2019 Frequency: At least 5 of 7 days/Wk (IRF) Estimated Hrs Per Day: 1.5 hours per day Agreement: Yes Rehab Potential: Good Time/GCodes Start Time: 10:00 Stop Time: 11:30 Total Time Billed (hr/min): 90 Billed Treatment Time 1, NM 4 (60), FA 2 (30)= 90 CASS RODRIGUEZ OTR Mar 30, 2019 11:32
--- NOTE | 2019-03-30 11:39 | Physical Therapy Daily Note ---
PT Daily Note-Current Subjective Patient in WC pre tx, agrees to PT, has no complaints of pain. Appearance Patient in WC post tx, would like to stay in it, states he is tired of laying in the bed. Patient has nurse call, phone, tray, all needs met. Mental Status Patient Orientation: Normal For Age Transfers SCALE: Activities may be completed with or without assistive devices. 7-Noirifynyd-ycqmsnz completes the activity by him/herself with no assistance from a helper. 5-Set-up or Clean-up Assistance-helper sets up or cleans up; patient completes activity. [place] assists only prior to or following the activity. 4-Supervision or Touching Assistance-helper provides verbal cues and/or touching/steadying and/or contact guard assistance as patient completes activ ity. Assistance may be provided throughout the activity or intermittently. 3-Partial/Moderate Assistance-helper does LESS THAN HALF the effort. [place] lifts, holds or supports trunk or limbs, but provides less than half the effort. 2-Substantial/Maximal Assistance-helper does MORE THAN HALF the effort. [place] lifts or holds trunk or limbs and provides more than half the effort. 3-Pxulmlaow-zseeak does ALL the effort. Patient does none of the effort to complete the activity. Or, the assistance of 2 or more helpers is required for the patient to complete the activity. If activity was not attempted, code reason: 7-Patient Refused. 9-Not Applicable-not attempted and the patient did not perform the activity before the current illness, exacerbation or injury. 10-Not Attempted due to Environmental Limitations-(lack of equipment, weather restraints, etc.). 88-Not Attempted due to Medical Conditions or Safety Concerns. Sit to Stand (QC): 4 Chair/Aoi-nw-Fziqg Xfer(QC): 3 Gait Training Distance: 80'x2 Walk 10 feet (QC): 3 Walk 50 ft with 2 Turns(QC): 3 Gait Assistive Device: Walker Moises Patient's left leg is fatigued from activity today, he has some knee buckling but not all the way, he takes a few standing rest breaks. Has some unsteadiness but continues to improve with advancing his left leg. Wheelchair Training Does the Pt Use a Wheelchair?: Yes Wheel 50 ft with 2 turns (QC): 4 Wheel 150 ft (QC): 4 Type of Wheelchair: Manual Tends to drag his left leg under WC, needs cues to correct this occasionally. Treatments WC mobility, ambulation Assessment Current Status: Fair Progress improving ambulation PT Short Term Goals Short Term Goals Time Frame: Apr 02, 2019 Roll Left & Right: 6 Sit to lyin Lying to sitting on side of be: 6 Sit to stand: 3 Chair/vza-el-juscu transfer: 3 Walk 10 feet: 3 Walk 50 feet with two turns: 3 PT Skilled Nursing Goals Green Building Architect Goals PT Green Building Architect Goals Time Frame: Apr 16, 2019 Roll Left & Right (QC): 6 Sit to Lying (QC): 6 Lying-Sitting on Side/Bed(QC): 6 Sit to Stand (QC): 4 Chair/Eqn-sq-Pnkxl Xfer(QC): 4 Toilet Transfer (QC): 4 Car Transfer (QC): 4 Walk 10 feet (QC): 3 Walk 50ft with 2 Turns (QC): 3 Walk 150 ft (QC): 3 Walking 10ft on Uneven Surface: 3 1 Step (curb) (QC): 3 4 Steps (QC): 3 PT Plan Problem List Problem List: Activity Tolerance, Functional Strength, Safety, Balance, Gait, Transfer, Bed Mobility, ROM Treatment/Plan Treatment Plan: Continue Plan of Care Treatment Plan: Bed Mobility, Education, Functional Activity Vlad, Functional Strength, Gait, Safety, Therapeutic Exercise, Transfers Treatment Duration: May 02, 2019 Frequency: At least 5 of 7 days/Wk (IRF) Estimated Hrs Per Day: 1.5 hours per day Patient and/or Family Agrees t: Yes Safety Risks/Education Patient Education: Gait Training, Transfer Techniques, Correct Positioning, W/C Management, Safety Issues Teaching Recipient: Patient Teaching Methods: Demonstration, Discussion Response to Teaching: Reinforcement Needed Time/GCodes Time In: 1130 Time Out: 1145 Total Billed Treatment Time: 15 Total Billed Treatment 1 visit FA JESSE PAIZ PT Mar 30, 2019 11:39
--- NOTE | 2019-03-30 15:51 | Speech Therapy Daily Note ---
Speech Daily Progress Note Subjective Date Seen by Provider: Mar 30, 2019 Time Seen by Provider: 00:30 Patient was upbeat and pleasant for all therapy activities. Patient was sitting in his chair for the duration of today's session. Patient reported feeling better today. Objective Patient completed word-finding tasks pertaining to category items with 90% accuracy with minimal cues. Patient completed problem-solving tasks utilizing sentence completion tasks with 90% accuracy with minimal cues. Assessment Assessment Current Status: Good Progress Treatment Plan Continue Plan of Care Speech Short Term Goals Short Term Goals Short Term Goals 1. Patient will complete memory tasks with 90% or greater with minimal cues. 2. Patient will complete problem-solving tasks with 90% or greater with minimal cues. 3. Patient will complete safety awareness tasks with 90% or greater with minimal cues. 4. Patient will complete word finding tasks with 90% or greater with minimal cues. 5. Patient will complete speech production tasks with 90% or greater with minimal cues. Speech Scheduling Agent Goals Scheduling Agent Goals Patient will improve cognitive-communication necessary for safety and daily gracie ing tasks with minimal assist. Speech-Plan Patient/Family Goals Patient/Family Goals: Patient plans on returning to his home upon discharge from rehab. Treatment Plan Speech Therapy Treatment Plan: Continue Plan of Care Treatment Duration: Apr 03, 2019 Frequency: 5 times per week Estimated Hrs Per Day: .5 hour per day Rehab Potential: Good Barriers to Learning: Patient has mild cognitive deficits and speech production difficulty, however these are resolving Pt/Family Agrees to Plan: Yes Safety Risks/Education Teaching Recipient: Patient Teaching Methods: Demonstration, Discussion Response to Teaching: Verbalize Understanding, Return Demonstration Education Topics Provided: Continued safety within the ARU and communication of wants/needs Time Speech Therapy Time In: 15:30 Speech Therapy Time Out: 16:00 Total Billed Time: 30 Billed Treatment Time 1[address] Mar 30, 2019 15:51
[2019-03-30] MEDS: ENOXAPARIN 40 MG/0.4 ML (LOVENOX) SYR SC SCH (16:05)
[2019-03-30 17:46] VITALS: BP 151/81
[2019-03-31 05:30] VITALS: BP 139/80
[2019-03-31] MEDS: MULTIVIT W/MINERALS TAB (THERAGRAN M) PO SCH (06:21)
[2019-03-31] MEDS: SENNA W/DOCUSATE (SENOKOT S) TABLET PO SCH ×2 (09:42→20:12)
[2019-03-31] MEDS: FOLIC ACID 1 MG TAB PO SCH (09:42)
[2019-03-31] MEDS: ASPIRIN E.C. 81 MG (ECOTRIN) TAB PO SCH (09:42)
[2019-03-31] MEDS: FAMOTIDINE 20 MG (PEPCID) TABLET PO SCH ×2 (09:42→20:12)
[2019-03-31] MEDS: MAGNESIUM OXIDE (MAG-OX)400 MG TAB PO SCH ×2 (09:42→20:12)
[2019-03-31] MEDS: amLODIPine 5 MG (NORVASC) TAB PO SCH (09:42)
[2019-03-31] MEDS: PANTOPRAZOLE 40 MG (PROTONIX) TAB PO SCH (09:42)
[2019-03-31] MEDS: DOCUSATE SODIUM 100 MG (COLACE) CAP PO SCH ×2 (09:42→20:12)
[2019-03-31] MEDS: THIAMINE 100 MG (VITAMIN B-1) TAB PO SCH (09:42)
--- NOTE | 2019-03-31 10:05 | Occupational Ther Daily Note ---
OT Current Status-Daily Note Subjective Pt sitting EOB, states he is tired from yesterday. Agrees to therapy. No reports of pain. ADL-Treatment Pt declined bathing or dressing this morning. States he doesn't need to complete grooming tasks at this time. Pt sit to stand and transfer to w/c with min assist for balance. Pt practiced doffing/donning socks. Pt able to doff socks with SBA. Donned right sock with SBA and increased time. Pt has difficulty starting sock over left foot, required assist to complete task. Pt attempts to use left hand during ADL task, but has decreased coordination. Therapy Code Descriptions/Definitions Functional [place] Measure: 0=Not Assessed/NA 4=Minimal Assistance 1=Total Assistance 5=Supervision or Setup 2=Maximal Assistance 6=Modified [place] 3=Moderate Assistance 7=Complete IndependenceSCALE: Activities may be completed with or without assistive devices. 0-Zdselggtjy-unhrajx completes the activity by him/herself with no assistance from a helper. 5-Set-up or Clean-up Assistance-helper sets up or cleans up; patient completes activity. [place] assists only prior to or following the activity. 4-Supervision or Touching Assistance-helper provides verbal cues and/or touching/steadying and/or contact guard assistance as patient completes activity. Assistance may be provided throughout the activity or intermittently. 3-Partial/Moderate Assistance-helper does LESS THAN HALF the effort. [place] lifts, holds or supports trunk or limbs, but provides less than half the effort. 2-Substantial/Maximal Assistance-helper does MORE THAN HALF the effort. [place] lifts or holds trunk or limbs and provides more than half the effort. 6-Xbekcgtbi-lrgpwn does ALL the effort. Patient does none of the effort to com plete the activity. Or, the assistance of 2 or more helpers is required for the patient to complete the activity. If activity was not attempted, code reason: 7-Patient Refused. 9-Not Applicable-not attempted and the patient did not perform the activity before the current illness, exacerbation or injury. 10-Not Attempted due to Environmental Limitations-(lack of equipment, weather restraints, etc.). 88-Not Attempted due to Medical Conditions or Safety Concerns. On/Off Footwear: 3 Other Treatment Pt propelled w/c to therapy gym with SBA. Pt performed fine motor task with left hand to increase grasp/release skills. Pt able to remove small pegs from pegboard and place in container with increased time and effort. Pt completed bilateral UE exercises to increase AROM and strength needed for functional task completion. Pt performed shoulder flexion and elbow flex/ext x10 reps with dowel tiki. Pt also performed AROM for shoulder abduction, forearm pronation/supination, wrist flex/ext, and finger flex/ext. Pt requires cues for breathing during exercises. Pt fatigues quickly and requires rest breaks as needed. Pt attempted opposition exercises with left hand, but was unable to complete at this time. Pt performed putty activity with left hand to increase strength and manipulation skills. Arm arc activity with left UE to increase ROM, activity tolerance, and coordination. Pt has difficulty grasping rings with left hand, but is able to complete task with increased time, occasional rest breaks. Graded clothespins task with left hand to increase strength and manipulation. Pt able to manipulate the two lightest resistance clothespins with gross grasp with increased time and effort. Pt picked up large cones and stacked them with left hand to promote reaching, ROM, coordination and grasp/release. Pt propelled w/c back to room, sitting with needs met after session. OT Short Term Goals Short Term Goals Time Frame: Apr 08, 2019 Shower/bathe self: 4 Lower body dressin Putting on/taking off footwear: 4 OT Washer Cutter Goals Washer Cutter Goals Time Frame: Apr 17, 2019 Eating (QC): 6 Oral Hygiene (QC): 6 Toileting Hygiene (QC): 6 Shower/Bathe Self (QC): 6 Upper Body Dressing (QC): 6 Lower Body Dressing (QC): 6 On/Off Footwear (QC): 6 Additional Goals: 1-Demonstrate ADL Tasks, 2-Verbalize Understanding, 3- ImproveStrength/Vlad 1=Demonstrate adherence to instructed precautions during ADL tasks. 2=Patient will verbalize/demonstrate understanding of assistive devices/modifications for ADL. 3=Patient will improve strength/tolerance for activity to enable patient to perform ADL's. OT Education/Plan Discharge Recommendations Plan/Recommendations: Continue POC Treatment Plan/Plan of Care Patient would benefit from OT for education, treatment and training to promote independence in ADL's, mobility, safety and/or upper extremity function for ADL's. Plan of Care: ADL Retraining, Caregiver Training, Functional Mobility, Group Exercise/Act as Ind, UE Funct Exercise/Act, UE Neuromus Re-Ed/Coord Treatment Duration: Apr 17, 2019 Frequency: At least 5 of 7 days/Wk (IRF) Estimated Hrs Per Day: 1.5 hours per day Agreement: Yes Rehab Potential: Good Time/GCodes Start Time: 08:00 Stop Time: 09:15 Total Time Billed (hr/min): 75 Billed Treatment Time 1 visit, ADL(15minutes), EXx2(30minutes), FAx2(30minutes) MISHEL ORTIZ OT Mar 31, 2019 10:05
--- NOTE | 2019-03-31 10:23 | Physical Therapy Daily Note ---
PT Daily Note-Current Subjective Patient in WC in his room pre tx, agrees to PT, has no complaints of pain. Appearance Patient in WC in room post tx with nurse call, phone, tray, all needs met. Mental Status Patient Orientation: Normal For Age Transfers SCALE: Activities may be completed with or without assistive devices. 4-Itmtljguyp-dqppljq completes the activity by him/herself with no assistance from a helper. 5-Set-up or Clean-up Assistance-helper sets up or cleans up; patient completes activity. [place] assists only prior to or following the activity. 4-Supervision or Touching Assistance-helper provides verbal cues and/or touch ing/steadying and/or contact guard assistance as patient completes activity. Assistance may be provided throughout the activity or intermittently. 3-Partial/Moderate Assistance-helper does LESS THAN HALF the effort. [place] lifts, holds or supports trunk or limbs, but provides less than half the effort. 2-Substantial/Maximal Assistance-helper does MORE THAN HALF the effort. [place] lifts or holds trunk or limbs and provides more than half the effort. 8-Wfwsngkjd-dhnbek does ALL the effort. Patient does none of the effort to complete the activity. Or, the assistance of 2 or more helpers is required for the patient to complete the activity. If activity was not attempted, code reason: 7-Patient Refused. 9-Not Applicable-not attempted and the patient did not perform the activity before the current illness, exacerbation or injury. 10-Not Attempted due to Environmental Limitations-(lack of equipment, weather restraints, etc.). 88-Not Attempted due to Medical Conditions or Safety Concerns. Sit to Stand (QC): 4 Chair/Mok-ry-Zgnkw Xfer(QC): 3 Min assist for balance when transferring to the left side. Occasional cues for hand placement and safety. Gait Training Distance: 150'x2 Walk 10 feet (QC): 3 Walk 50 ft with 2 Turns(QC): 3 Walk 150 ft (QC): 3 Gait Persons Needed: 1 Gait Assistive Device: Walker Moises Patient ambulates slowly, needs occasional standing rest break, uncoordinated (but improved) steps, left toes tend to drag on the floor, needs AFO but doesn't have shoes at this time. Wheelchair Training Does the Pt Use a Wheelchair?: Yes Wheel 50 ft with 2 turns (QC): 4 Wheel 150 ft (QC): 4 Type of Wheelchair: Manual SBA, needs cues for use of left leg. Exercises Standing: Hamstring curls, Heel/toe raises, 3 way Ex=Flex, Abd, Ext (not extension), Mini squats Standing Reps: 15 toe taps on step x15 each side, LAQ left side for 5 min NuStep Minutes: 15 NuStep Workload: 5 Treatments WC mobility, ambulation, transfers, LE strengthening Assessment Current Status: Fair Progress improving control and coordination of left leg, coordination decreases with increase in fatigue PT Short Term Goals Short Term Goals Time Frame: Apr 02, 2019 Roll Left & Right: 6 Sit to lyin Lying to sitting on side of be: 6 Sit to stand: 3 Chair/uum-tb-dlgwp transfer: 3 Walk 10 feet: 3 Walk 50 feet with two turns: 3 PT Senior Care Goals Senior Care Goals PT Correctional Guard Goals Time Frame: Apr 16, 2019 Roll Left & Right (QC): 6 Sit to Lying (QC): 6 Lying-Sitting on Side/Bed(QC): 6 Sit to Stand (QC): 4 Chair/Ixb-wb-Kppaa Xfer(QC): 4 Toilet Transfer (QC): 4 Car Transfer (QC): 4 Walk 10 feet (QC): 3 Walk 50ft with 2 Turns (QC): 3 Walk 150 ft (QC): 3 Walking 10ft on Uneven Surface: 3 1 Step (curb) (QC): 3 4 Steps (QC): 3 PT Plan Problem List Problem List: Activity Tolerance, Functional Strength, Safety, Balance, Gait, Transfer, Bed Mobility, ROM Treatment/Plan Treatment Plan: Continue Plan of Care Treatment Plan: Bed Mobility, Education, Functional Activity Vlad, Functional Strength, Gait, Safety, Therapeutic Exercise, Transfers Treatment Duration: May 02, 2019 Frequency: At least 5 of 7 days/Wk (IRF) Estimated Hrs Per Day: 1.5 hours per day Patient and/or Family Agrees t: Yes Safety Risks/Education Patient Education: Gait Training, Transfer Techniques, Correct Positioning, W/C Management, Safety Issues Teaching Recipient: Patient Teaching Methods: Demonstration, Discussion Response to Teaching: Reinforcement Needed Time/GCodes Time In: 0915 Time Out: 1030 Total Billed Treatment Time: 75 Total Billed Treatment 1 visit GT 20' WCH 10' EX 45' JESSE CAMACHO PT Mar 31, 2019 10:23
--- NOTE | 2019-03-31 10:33 | PM&R Progress Note ---
Subjective HPI/CC On Admission Date Seen by Provider: Mar 31, 2019 Time Seen by Provider: 09:00 Subjective/Events-last exam Moving the left arm and left and a lot better Drags his left leg sometimes when he is walking with the walker Wants to go back to work soon [facility] will be his PCP Nebulizer treatments maintained along with IS. 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 Checked meds and labs Review of Systems Neurological: Weakness Objective Exam Vital Signs Vital Signs Date Time Temp Pulse Resp B/P (MAP) Pulse Ox O2 Delivery O2 Flow Rate FiO2 03/31/19 20:45 Room Air 03/31/19 18:43 97 03/31/19 18:00 37.2 83 18 159/82 (107) Capillary Refill : Less Than 3 Seconds General Appearance: No Apparent Distress, WD/WN, Chronically ill HEENT: PERRL/EOMI, Normal ENT Inspection, Pharynx Normal Neck: Full Range of Motion, Normal Inspection, Non Tender, Supple, Carotid Bruit Respiratory: Chest Non Tender, Lungs Clear, Normal Breath Sounds, No Accessory Muscle Use, No Respiratory Distress, Decreased Breath Sounds Cardiovascular: Regular Rate, Rhythm, No Edema, No Gallop, No JVD, No Murmur, Normal Peripheral Pulses Gastrointestinal: Normal Bowel Sounds, No Organomegaly, No Pulsatile Mass, Non Tender, Soft Back: Normal Inspection, No CVA Tenderness, No Vertebral Tenderness Extremity: Normal Capillary Refill, Normal Inspection, Normal Range of Motion, Non Tender, No Calf Tenderness, No Pedal Edema Neurologic/Psychiatric: Alert, Oriented x3, 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 FIM Transfers Therapy Code Descriptions/Definitions Functional [place] Measure: 0=Not Assessed/NA 4=Minimal Assistance 1=Total Assistance 5=Supervision or Setup 2=Maximal Assistance 6=Modified [place] 3=Moderate Assistance 7=Complete IndependenceSCALE: Activities may be completed with or without assistive devices. 8-Oxspjiqggl-fjvdgdt completes the activity by him/herself with no assistance from a helper. 5-Set-up or Clean-up Assistance-helper sets up or cleans up; patient completes activity. [place] assists only prior to or following the activity. 4-Supervision or Touching Assistance-helper provides verbal cues and/or touching/steadying and/or contact guard assistance as patient completes activity. Assistance may be provided throughout the activity or intermittently. 3-Partial/Moderate Assistance-helper does LESS THAN HALF the effort. [place] lifts, holds or supports trunk or limbs, but provides less than half the effort. 2-Substantial/Maximal Assistance-helper does MORE THAN HALF the effort. [place] lifts or holds trunk or limbs and provides more than half the effort. 7-Noooyqmbp-qbnber does ALL the effort. Patient does none of the effort to complete the activity. Or, the assistance of 2 or more helpers is required for the patient to complete the activity. If activity was not attempted, code reason: 7-Patient Refused. 9-Not Applicable-not attempted and the patient did not perform the activity before the current illness, exacerbation or injury. 10-Not Attempted due to Environmental Limitations-(lack of equipment, weather restraints, etc.). 88-Not Attempted due to Medical Conditions or Safety Concerns. Roll Left to Right (QC): 6 Sit to Lying (QC): 6 Sit to Stand (QC): 4 Chair/Dyk-dr-Inwml Xfer(QC): 3 Car Transfer (QC): 2 Gait Training Does the Patient Walk?: Yes Distance: 150'x2 Walk 10 feet (QC): 3 Walk 50 ft with 2 Turns(QC): 3 Walk 150 ft (QC): 3 Walking 10ft/uneven surface-QC: 88 Gait Persons Needed: 1 Gait Assistive Device: Walker Moises Wheelchair Training Does the Pt Use a Wheelchair?: Yes Distance: 150' Wheel 50 ft with 2 turns (QC): 4 Wheel 150 ft (QC): 4 Type of Wheelchair: Manual Stair Training 1 Step (curb) (QC): 88 4 Steps (QC): 88 12 Steps (QC): 88 Balance Picking up an Object (QC): 88 ADL-Treatment Eating (QC): 6 (Per pt report, he is able to cut food and bring food to mouth without assistance. ) Oral Hygiene (QC): 5 (Set up, pt required assistance opening swab, pt able to swab his gums. Pt does not have his dentures at the hospital, declined using toothbrush to scrub his gums. ) Shower/Bathe Self (QC): 7 Upper Body Dressing (QC): 7 Lower Body Dressing (QC): 7 On/Off Footwear (QC): 3 Toileting Hygiene (QC): 3 (Pt able to place urinal and void, OT assisted with holding urinal in order for it not to spill. OT then emtied urinal for pt.) Assessment/Plan Assessment and Plan Assess & Plan/Chief Complaint Assessment: CVA Left-sided weakness Hypertension Current smoker Noncompliance Reflux Diminished breath sounds in lower lobes Plan: Inpatient rehabilitation protocol Blood pressure control Monitor labs Maintain good bowel function Pepcid and Protonix Neb treatments Incentive spirometer (1) CVA (cerebral vascular accident) (2) Smoker (3) Hypertension (4) Noncompliance (5) Left-sided weakness (6) GERD (gastroesophageal reflux disease) YOLANDA KEITH DO Mar 31, 2019 10:32
[2019-03-31] MEDS: POLYETHYLENE GLYCOL 17 GM (MIRALAX) PACK PO SCH ×2 (10:58→20:12)
--- NOTE | 2019-03-31 11:11 | NUR ---
Call placed to Dr. Barfield's office to notify of consult.
[2019-03-31] MEDS: RT-ALBUTEROL/IPRATROPIUM 3 ML (DUONEB) VIAL INH SCH ×3 (11:34→18:43)
--- NOTE | 2019-03-31 12:04 | Speech Therapy Daily Note ---
Speech Daily Progress Note Subjective Date Seen by Provider: Mar 31, 2019 Time Seen by Provider: 10:30 Patient was upbeat and cooperative for all therapy activities. Patient was sitting upright in his wheelchair for the duration of treatment. Objective Patient completed the Abhishek Cognitive Assessment (MOCA) and scored 30/30 which falls within normal limits of cognitive function and positive response to treatment. Patient completed speech production tasks with 90% accuracy with minimal cues. Treatment Plan Continue Plan of Care Speech Short Term Goals Short Term Goals Short Term Goals 1. Patient will complete memory tasks with 90% or greater with minimal cues. 2. Patient will complete problem-solving tasks with 90% or greater with minimal cues. 3. Patient will complete safety awareness tasks with 90% or greater with minimal cues. 4. Patient will complete word finding tasks with 90% or greater with minimal cues. 5. Patient will complete speech production tasks with 90% or greater with minimal cues. Speech Nursing Home Goals Nursing Home Goals Patient will improve cognitive-communication necessary for safety and daily living tasks with minimal assist. Speech-Plan Patient/Family Goals Patient/Family Goals: Patient reports wanting to return home to prior level of independence and mobility and working at his job. Treatment Plan Speech Therapy Treatment Plan: Continue Plan of Care Treatment Duration: Apr 03, 2019 Frequency: 5 times per week Estimated Hrs Per Day: .5 hour per day Rehab Potential: Good Barriers to Learning: CVA Pt/Family Agrees to Plan: Yes Safety Risks/Education Teaching Recipient: Patient Teaching Methods: Demonstration, Discussion Response to Teaching: Verbalize Understanding Education Topics Provided: Patient verbalized skills needed to return home and the process of returning to work and skills needed to be successful. Time Speech Therapy Time In: 10:30 Speech Therapy Time Out: 11:00 Total Billed Time: 30 Billed Treatment Time [address] Mar 31, 2019 12:04
--- NOTE | 2019-03-31 12:30 | NUR ---
Care assumed from Jin Haskins RN. Agree with previous assessments.
--- NOTE | 2019-03-31 13:20 | Podiatry Progress Note ---
Standard Progress Note Progress Notes/Assess & Plan Date Seen by a Provider: Mar 31, 2019 Time Seen by a Provider: 13:19 Progress/Assessment & Plan Consult dictated - foot care given. Final Diagnosis Onychomycosis, Neuropathy, Foot Drop left CARLOS MENDOZA DPRefugio Mar 31, 2019 13:20
--- NOTE | 2019-03-31 13:30 | NUR ---
Dr. Barfield here to assess patient and trim toenails. No additional orders at this time.
[2019-03-31] MEDS: ENOXAPARIN 40 MG/0.4 ML (LOVENOX) SYR SC SCH (15:45)
--- NOTE | 2019-03-31 16:14 | CONSULTATION REPORT ---
DATE OF SERVICE: REASON FOR CONSULTATION: Foot care. HISTORY OF PRESENT ILLNESS: This 63-year-old who was admitted secondary to stroke, managed at [facility] and transferred to [facility] for rehabilitation purposes. The patient has difficulty reaching for and caring for his feet. PAST MEDICAL HISTORY: Includes cerebrovascular accident essentially affecting the left side. SOCIAL HISTORY: The patient is a current every day smoker. He also uses alcohol. No reported illicit drug use. PHYSICAL EXAMINATION: GENERAL: This is a well-developed male, in no apparent distress. LOWER EXTREMITY: The patient has 1/4 dorsalis pedis pulse, nonpalpable posterior tibial pulse bilaterally. Cap refill time is less than 3 seconds. NEUROLOGIC: The patient has diminished vibratory sensation, intact protective sensation per 10 gram monofilament wire examination bilaterally. DERMATOLOGIC: The patient has thick yellow dystrophic toenail with subungual debris associated with all 10 toenails. There is loosening of the distal hallux toenail bilaterally. There is also a hyperkeratotic lesion in the plantar aspect of the right fifth metatarsal, which is nucleated. No open wound, no gross signs of bacterial infection. MUSCULOSKELETAL FINDINGS: The patient has decreased muscle strength for dorsiflexion and eversion as well as plantar flexion and inversion on left lower extremity. ASSESSMENT: 1. Idiopathic neuropathy. 2. Onychomycosis. 3. Foot drop left. 4. Recent history of cerebrovascular accident affecting left side. PLAN: Various treatment options were discussed with the patient. His toenails were debrided today manually and mechanically. Betadine applied. We discussed treatment options for a foot drop. He will continue with occupational and physical therapy. An ankle foot orthosis would also be appropriate course of action for allowing better ambulation of left lower extremity. I will see the patient in follow up as necessary. Job ID: [id number] DocumentID: [id number] Dictated Date: 03/31/2019 13:32:22 [place] Date: 03/31/2019 16:14:05 Dictated By: CARLOS MENDOZA DPM
[2019-03-31 18:00] VITALS: BP 159/82
[2019-04-01 05:52] VITALS: BP 134/78
[2019-04-01] MEDS: MULTIVIT W/MINERALS TAB (THERAGRAN M) PO SCH (06:14)
[2019-04-01] MEDS: SENNA W/DOCUSATE (SENOKOT S) TABLET PO SCH ×2 (09:13→20:57)
[2019-04-01] MEDS: FOLIC ACID 1 MG TAB PO SCH (09:13)
[2019-04-01] MEDS: ASPIRIN E.C. 81 MG (ECOTRIN) TAB PO SCH (09:13)
[2019-04-01] MEDS: amLODIPine 5 MG (NORVASC) TAB PO SCH (09:13)
[2019-04-01] MEDS: PANTOPRAZOLE 40 MG (PROTONIX) TAB PO SCH (09:13)
[2019-04-01] MEDS: DOCUSATE SODIUM 100 MG (COLACE) CAP PO SCH ×2 (09:13→20:51)
[2019-04-01] MEDS: MAGNESIUM OXIDE (MAG-OX)400 MG TAB PO SCH ×2 (09:13→20:51)
[2019-04-01] MEDS: THIAMINE 100 MG (VITAMIN B-1) TAB PO SCH (09:13)
[2019-04-01] MEDS: FAMOTIDINE 20 MG (PEPCID) TABLET PO SCH ×2 (09:14→20:51)
--- NOTE | 2019-04-01 09:27 | PM&R Progress Note ---
Subjective HPI/CC On Admission Date Seen by Provider: Apr 01, 2019 Time Seen by Provider: 09:00 Subjective/Events-last exam Low grade fever at 37.2 Celsius. Bowels moved yesterday. Lungs remain clear. Using IS. Overall wants to go home but needs more time to fully evaluate. 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 Checked meds and labs Review of Systems General: Fatigue Neurological: Weakness, Numbness, Incoordination Objective Exam Vital Signs Vital Signs Date Time Temp Pulse Resp B/P (MAP) Pulse Ox O2 Delivery O2 Flow Rate FiO2 04/01/19 18:22 37.1 72 18 129/78 (95) 95 Room Air Capillary Refill : Less Than 3 Seconds General Appearance: No Apparent Distress, WD/WN, Chronically ill HEENT: PERRL/EOMI, Normal ENT Inspection, Pharynx Normal Neck: Full Range of Motion, Normal Inspection, Non Tender, Supple, Carotid Bruit Respiratory: Chest Non Tender, Lungs Clear, Normal Breath Sounds, No Accessory Muscle Use, No Respiratory Distress, Decreased Breath Sounds Cardiovascular: Regular Rate, Rhythm, No Edema, No Gallop, No JVD, No Murmur, Normal Peripheral Pulses Gastrointestinal: Normal Bowel Sounds, No Organomegaly, No Pulsatile Mass, Non Tender, Soft Back: Normal Inspection, No CVA Tenderness, No Vertebral Tenderness Extremity: Normal Capillary Refill, Normal Inspection, Normal Range of Motion, Non Tender, No Calf Tenderness, No Pedal Edema Neurologic/Psychiatric: Alert, Oriented x3, 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 FIM Transfers Therapy Code Descriptions/Definitions Functional [place] Measure: 0=Not Assessed/NA 4=Minimal Assistance 1=Total Assistance 5=Supervision or Setup 2=Maximal Assistance 6=Modified [place] 3=Moderate Assistance 7=Complete IndependenceSCALE: Activities may be completed with or without assistive devices. 8-Vbovmejave-cxygjem completes the activity by him/herself with no assistance from a helper. 5-Set-up or Clean-up Assistance-helper sets up or cleans up; patient completes activity. [place] assists only prior to or following the activity. 4-Supervision or Touching Assistance-helper provides verbal cues and/or touching/steadying and/or contact guard assistance as patient completes activity. Assistance may be provided throughout the activity or intermittently. 3-Partial/Moderate Assistance-helper does LESS THAN HALF the effort. [place] lifts, holds or supports trunk or limbs, but provides less than half the effort. 2-Substantial/Maximal Assistance-helper does MORE THAN HALF the effort. [place] lifts or holds trunk or limbs and provides more than half the effort. 1-Nzywbimcl-krezfi does ALL the effort. Patient does none of the effort to complete the activity. Or, the assistance of 2 or more helpers is required for the patient to complete the activity. If activity was not attempted, code reason: 7-Patient Refused. 9-Not Applicable-not attempted and the patient did not perform the activity before the current illness, exacerbation or injury. 10-Not Attempted due to Environmental Limitations-(lack of equipment, weather restraints, etc.). 88-Not Attempted due to Medical Conditions or Safety Concerns. Roll Left to Right (QC): 6 Sit to Lying (QC): 6 Sit to Stand (QC): 4 Chair/Kdg-kg-Ulpst Xfer(QC): 3 Car Transfer (QC): 2 Gait Training Does the Patient Walk?: Yes Distance: 150'x2 Walk 10 feet (QC): 3 Walk 50 ft with 2 Turns(QC): 3 Walk 150 ft (QC): 3 Walking 10ft/uneven surface-QC: 88 Gait Persons Needed: 1 Gait Assistive Device: Walker Moises Wheelchair Training Does the Pt Use a Wheelchair?: Yes Distance: 150' Wheel 50 ft with 2 turns (QC): 4 Wheel 150 ft (QC): 4 Type of Wheelchair: Manual Stair Training 1 Step (curb) (QC): 88 4 Steps (QC): 88 12 Steps (QC): 88 Balance Picking up an Object (QC): 88 ADL-Treatment Eating (QC): 6 (Per pt report, he is able to cut food and bring food to mouth without assistance. ) Oral Hygiene (QC): 5 (Set up, pt required assistance opening swab, pt able to swab his gums. Pt does not have his dentures at the hospital, declined using toothbrush to scrub his gums. ) Shower/Bathe Self (QC): 7 Upper Body Dressing (QC): 7 Lower Body Dressing (QC): 7 On/Off Footwear (QC): 3 Toileting Hygiene (QC): 3 (Pt able to place urinal and void, OT assisted with holding urinal in order for it not to spill. OT then emtied urinal for pt.) Assessment/Plan Assessment and Plan Assess & Plan/Chief Complaint Assessment: CVA Left-sided weakness Hypertension Current smoker Noncompliance Reflux Diminished breath sounds in lower lobes now improved with Nebs Low grade fever isolated? Plan: Inpatient rehabilitation protocol Blood pressure control Monitor labs Maintain good bowel function Pepcid and Protonix Neb treatments Incentive spirometer (1) CVA (cerebral vascular accident) (2) Smoker (3) Hypertension (4) Noncompliance (5) Left-sided weakness (6) GERD (gastroesophageal reflux disease) YOLANDA KEITH DO Apr 01, 2019 09:27
--- NOTE | 2019-04-01 09:28 | Occupational Ther Daily Note ---
OT Current Status-Daily Note Subjective Pt in bed, agrees to therapy. No reports of pain. Pt states he wants to return home as soon as possible ADL-Treatment Pt agreeable to shower this morning. Supine to sit without assist. Transfer to w/c with CGA. To restroom via w/c. Pt transferred w/c <-> shower bench with CGA using grab bar, skilled cues for safety. Pt doffed shirt without assist. Doffed pants with min assist for balance. Pt able to doff socks with SBA and increased time. Seated bathing completed using hand held shower. Pt requires min assist overall for bathing. Pt able to thread bilateral LE into sleeves and pull shirt over head. Pt requires min assist to pull shirt down in left side. Pt requires assist to thread left LE into pants, able to thread right LE. Stood with CGA for balance during pant hike. Pt requires assist to don DELIA hose. Pt dons socks with CGA for balance and increased time. Pt fatigues with activity and requires occasional rest breaks during activity. Therapy Code Descriptions/Definitions Functional [place] Measure: 0=Not Assessed/NA 4=Minimal Assistance 1=Total Assistance 5=Supervision or Setup 2=Maximal Assistance 6=Modified [place] 3=Moderate Assistance 7=Complete IndependenceSCALE: Activities may be completed with or without assistive devices. 7-Oxivjviwyv-jkkhcgg completes the activity by him/herself with no assistance from a helper. 5-Set-up or Clean-up Assistance-helper sets up or cleans up; patient completes activity. [place] assists only prior to or following the activity. 4-Supervision or Touching Assistance-helper provides verbal cues and/or touching/steadying and/or contact guard assistance as patient completes activity. Assistance may be provided throughout the activity or intermittently. 3-Partial/Moderate Assistance-helper does LESS THAN HALF the effort. [place] lifts, holds or supports trunk or limbs, but provides less than half the effort. 2-Substantial/Maximal Assistance-helper does MORE THAN HALF the effort. [place] lifts or holds trunk or limbs and provides more than half the effort. 7-Vqaoqffvk-cnkfnx does ALL the effort. Patient does none of the effort to complete the activity. Or, the assistance of 2 or more helpers is required for the patient to complete the activity. If activity was not attempted, code reason: 7-Patient Refused. 9-Not Applicable-not attempted and the patient did not perform the activity before the current illness, exacerbation or injury. 10-Not Attempted due to Environmental Limitations-(lack of equipment, weather restraints, etc.). 88-Not Attempted due to Medical Conditions or Safety Concerns. Shower/Bathe Self (QC): 3 Upper Body Dressing (QC): 3 Lower Body Dressing (QC): 3 On/Off Footwear: 4 Other Treatment Pt propelled w/c to therapy gym. Pt completed bilateral UE exercises x10 reps with 1# dowel tiki for shoulder flexion, elbow flex/ext, and wrist flex/ext. Pt completed AROM for shoulder abduction. Pt requires cues for breathing with exercises. Pt participated in resistance peg activity with left hand. Pt has difficulty with manipulation and coordination and becomes frustrated with task. After a brief break pt was able to place 7 pegs with increased time. Pt completed grasp/release activity with left hand to increase manipulation skills for ADL tasks. Pt able to burr picker [address] in container with increased time. Pt returned to room, sitting in w/c with needs met and RN presen t after session. OT Short Term Goals Short Term Goals Time Frame: Apr 08, 2019 Shower/bathe self: 4 Lower body dressin Putting on/taking off footwear: 4 OT Cytometry Technologist Goals Assisted Goals Time Frame: Apr 17, 2019 Eating (QC): 6 Oral Hygiene (QC): 6 Toileting Hygiene (QC): 6 Shower/Bathe Self (QC): 6 Upper Body Dressing (QC): 6 Lower Body Dressing (QC): 6 On/Off Footwear (QC): 6 Additional Goals: 1-Demonstrate ADL Tasks, 2-Verbalize Understanding, 3- ImproveStrength/Vlad 1=Demonstrate adherence to instructed precautions during ADL tasks. 2=Patient will verbalize/demonstrate understanding of assistive devices/modifications for ADL. 3=Patient will improve strength/tolerance for activity to enable patient to perform ADL's. OT Education/Plan Discharge Recommendations Plan/Recommendations: Continue POC Treatment Plan/Plan of Care Patient would benefit from OT for education, treatment and training to promote independence in ADL's, mobility, safety and/or upper extremity function for ADL's. Plan of Care: ADL Retraining, Caregiver Training, Functional Mobility, Group Exercise/Act as Ind, UE Funct Exercise/Act, UE Neuromus Re-Ed/Coord Treatment Duration: Apr 17, 2019 Frequency: At least 5 of 7 days/Wk (IRF) Estimated Hrs Per Day: 1.5 hours per day Agreement: Yes Rehab Potential: Good Time/GCodes Start Time: 08:00 Stop Time: 09:15 Total Time Billed (hr/min): 75 Billed Treatment Time 1 visit, ADLx3(40minutes), EX(15minutes), FA(20minutes) MISHEL ORTIZ OT Apr 01, 2019 09:28
[2019-04-01] MEDS: RT-ALBUTEROL/IPRATROPIUM 3 ML (DUONEB) VIAL INH SCH ×2 (09:33→16:13)
[2019-04-01] MEDS: POLYETHYLENE GLYCOL 17 GM (MIRALAX) PACK PO SCH ×2 (09:41→20:57)
--- NOTE | 2019-04-01 12:39 | Physical Therapy Daily Note ---
PT Daily Note-Current Subjective Pt sitting in W/C in room upon arrival. Pt agrees to PT. Pain Location: No Pain Reported Mental Status Patient Orientation: Person, Place, Situation Attachments: Other-See Comments (AFO for L LE) Transfers SCALE: Activities may be completed with or without assistive devices. 2-Sqvagfnglg-jqtjwvo completes the activity by him/herself with no assistance from a helper. 5-Set-up or Clean-up Assistance-helper sets up or cleans up; patient completes activity. [place] assists only prior to or following the activity. 4-Supervision or Touching Assistance-helper provides verbal cues and/or touching/steadying and/or contact guard assistance as patient completes activity. Assistance may be provided throughout the activity or intermittently. 3-Partial/Moderate Assistance-helper does LESS THAN HALF the effort. [place] lifts, holds or supports trunk or limbs, but provides less than half the effort. 2-Substantial/Maximal Assistance-helper does MORE THAN HALF the effort. [place] lifts or holds trunk or limbs and provides more than half the effort. 7-Kgxpxwrss-hibeoc does ALL the effort. Patient does none of the effort to complete the activity. Or, the assistance of 2 or more helpers is required for the patient to complete the activity. If activity was not attempted, code reason: 7-Patient Refused. 9-Not Applicable-not attempted and the patient did not perform the activity before the current illness, exacerbation or injury. 10-Not Attempted due to Environmental Limitations-(lack of equipment, weather restraints, etc.). 88-Not Attempted due to Medical Conditions or Safety Concerns. Weight Bearing Full Weight Bearing Full Weight Bearing Gait Training Does the Patient Walk?: Yes Distance: 150' x2 Walk 10 feet (QC): 4 Walk 50 ft with 2 Turns(QC): 4 Walk 150 ft (QC): 4 Gait Persons Needed: 1 Gait Assistive Device: Walker Moises Wheelchair Training Does the Pt Use a Wheelchair?: Yes Wheel 50 ft with 2 turns (QC): 4 Wheel 150 ft (QC): 4 Type of Wheelchair: Manual Treatments Pt propels W/C in hallway and to Therapy Gym. Pt is fitted and assisted by CONCRETE TILE MACHINE OPERATOR with donning AFO for L LE. Pt ambulates in hallway using Moises walker. Pt return to room and rests in W/C at end of Rx. Pt has all needs met, call light in hand. Assessment Current Status: Good Progress Pt's ambulation improves with use of AFO. PT Short Term Goals Short Term Goals Time Frame: Apr 02, 2019 Roll Left & Right: 6 Sit to lyin Lying to sitting on side of be: 6 Sit to stand: 3 Chair/nax-lk-jsogm transfer: 3 Walk 10 feet: 3 Walk 50 feet with two turns: 3 PT Senior Care Goals Senior Care Goals PT American History Professor Goals Time Frame: Apr 16, 2019 Roll Left & Right (QC): 6 Sit to Lying (QC): 6 Lying-Sitting on Side/Bed(QC): 6 Sit to Stand (QC): 4 Chair/Jyb-ne-Lqpzc Xfer(QC): 4 Toilet Transfer (QC): 4 Car Transfer (QC): 4 Walk 10 feet (QC): 3 Walk 50ft with 2 Turns (QC): 3 Walk 150 ft (QC): 3 Walking 10ft on Uneven Surface: 3 1 Step (curb) (QC): 3 4 Steps (QC): 3 PT Plan Problem List Problem List: Activity Tolerance, Functional Strength, Safety, Balance, Gait Treatment/Plan Treatment Plan: Continue Plan of Care Treatment Plan: Bed Mobility, Education, Functional Activity Vlad, Functional Strength, Gait, Safety, Therapeutic Exercise, Transfers Treatment Duration: May 02, 2019 Frequency: At least 5 of 7 days/Wk (IRF) Estimated Hrs Per Day: 1.5 hours per day Patient and/or Family Agrees t: Yes Safety Risks/Education Patient Education: Gait Training, Correct Positioning, Safety Issues Teaching Recipient: Patient Teaching Methods: Discussion Response to Teaching: Verbalize Understanding Time/GCodes Time In: 1015 Time Out: 1100 Total Billed Treatment Time: 45 Total Billed Treatment 1, GT (20m), FA (10m) & WCH (15m) MI SILVA CONCRETE TILE MACHINE OPERATOR Apr 01, 2019 12:39
--- NOTE | 2019-04-01 13:46 | Speech Therapy Daily Note ---
Speech Daily Progress Note Subjective Date Seen by Provider: Apr 01, 2019 Time Seen by Provider: 09:45 Patient was alert and cooperative for all therapy activities. Patient reported that he is "ready to get out of here" and explained that he is wanting to return home. Patient was sitting upright in his wheelchair for the duration of therapy. Objective Patient completed word-finding tasks pertaining to categorical items and word fluency with 90% accuracy with minimal cues. Treatment Plan Continue Plan of Care Speech Short Term Goals Short Term Goals Short Term Goals 1. Patient will complete memory tasks with 90% or greater with minimal cues. 2. Patient will complete problem-solving tasks with 90% or greater with minimal cues. 3. Patient will complete safety awareness tasks with 90% or greater with minimal cues. 4. Patient will complete word finding tasks with 90% or greater with minimal cues. 5. Patient will complete speech production tasks with 90% or greater with minimal cues. Speech Linoleum Floor Installer Goals Fdc Goals Patient will improve cognitive-communication necessary for safety and daily living tasks with minimal assist. Speech-Plan Patient/Family Goals Patient/Family Goals: Patient reports wanting to return home and work. Treatment Plan Speech Therapy Treatment Plan: Continue Plan of Care Treatment Duration: Apr 03, 2019 Frequency: 5 times per week Estimated Hrs Per Day: .5 hour per day Rehab Potential: Good Barriers to Learning: Right CVA Pt/Family Agrees to Plan: Yes Safety Risks/Education Teaching Recipient: Patient Teaching Methods: Demonstration, Discussion Response to Teaching: Verbalize Understanding Education Topics Provided: Patient verbalized increased understanding of safety awareness for when he is discharged home. Time Speech Therapy Time In: 09:45 Speech Therapy Time Out: 10:15 Total Billed Time: 30 Billed Treatment Time ROCAEL Pichardo [facility] Apr 01, 2019 13:46
--- NOTE | 2019-04-01 13:51 | Physical Therapy Daily Note ---
PT Daily Note-Current Subjective Pt. agrees to Rx. States he has a plan for when he leaves to stay with his in a zero entry aptmt. "Im itching to go"! " Last night I didnt sleep worth a s$$$" Pain Location: No Pain Reported Mental Status Patient Orientation: Normal For Age Attachments: Other-See Comments (AFO left) Transfers SCALE: Activities may be completed with or without assistive devices. 1-Xykyydnten-fnhgond completes the activity by him/herself with no assistance from a helper. 5-Set-up or Clean-up Assistance-helper sets up or cleans up; patient completes activity. [place] assists only prior to or following the activity. 4-Supervision or Touching Assistance-helper provides verbal cues and/or touch ing/steadying and/or contact guard assistance as patient completes activity. Assistance may be provided throughout the activity or intermittently. 3-Partial/Moderate Assistance-helper does LESS THAN HALF the effort. [place] lifts, holds or supports trunk or limbs, but provides less than half the effort. 2-Substantial/Maximal Assistance-helper does MORE THAN HALF the effort. [place] lifts or holds trunk or limbs and provides more than half the effort. 6-Imhfzyyco-wojeyc does ALL the effort. Patient does none of the effort to complete the activity. Or, the assistance of 2 or more helpers is required for the patient to complete the activity. If activity was not attempted, code reason: 7-Patient Refused. 9-Not Applicable-not attempted and the patient did not perform the activity before the current illness, exacerbation or injury. 10-Not Attempted due to Environmental Limitations-(lack of equipment, weather restraints, etc.). 88-Not Attempted due to Medical Conditions or Safety Concerns. all sit to stand and sup to sit , sit to sup SBA to Mod I Weight Bearing Full Weight Bearing Full Weight Bearing Gait Training Does the Patient Walk?: Yes Walk 50 ft with 2 Turns(QC): 4 Gait Assistive Device: Walker Moises no LOB , needs reminders for sequence Wheelchair Training Does the Pt Use a Wheelchair?: Yes Type of Wheelchair: Manual drags left foot needs instruction to extend and utilized to propel Exercises Supine Ex: Bridging, Ankle pumps, Quad Set, Rolling, Glut sets, Heel Slides, Scooting, Straight leg raise, Hip abd/add (sidelying) Supine Reps: 15 Treatments up in w/c after with call perez at hand as well as phone, took AFO off after Rx to inspect skin, no abrasion Assessment Current Status: Good Progress PT Short Term Goals Short Term Goals Time Frame: Apr 02, 2019 Roll Left & Right: 6 Sit to lyin Lying to sitting on side of be: 6 Sit to stand: 3 Chair/xhv-jh-biwih transfer: 3 Walk 10 feet: 3 Walk 50 feet with two turns: 3 PT Technical Intern Goals Technical Intern Goals PT Technical Intern Goals Time Frame: Apr 16, 2019 Roll Left & Right (QC): 6 Sit to Lying (QC): 6 Lying-Sitting on Side/Bed(QC): 6 Sit to Stand (QC): 4 Chair/Ozf-wr-Uprgs Xfer(QC): 4 Toilet Transfer (QC): 4 Car Transfer (QC): 4 Walk 10 feet (QC): 3 Walk 50ft with 2 Turns (QC): 3 Walk 150 ft (QC): 3 Walking 10ft on Uneven Surface: 3 1 Step (curb) (QC): 3 4 Steps (QC): 3 PT Plan Treatment/Plan Treatment Plan: Continue Plan of Care Treatment Plan: Bed Mobility, Education, Functional Activity Vlad, Functional Strength, Gait, Safety, Therapeutic Exercise, Transfers Treatment Duration: May 02, 2019 Frequency: At least 5 of 7 days/Wk (IRF) Estimated Hrs Per Day: 1.5 hours per day Patient and/or Family Agrees t: Yes Safety Risks/Education Patient Education: Gait Training, Transfer Techniques, Reviewed Use of Ice, W/C Management, Safety Issues Teaching Recipient: Patient Teaching Methods: Demonstration, Discussion Response to Teaching: Verbalize Understanding, Return Demonstration, Reinforcement Needed Time/GCodes Time In: 1320 Time Out: 1350 Total Billed Treatment Time: 30 Total Billed Treatment 1,FA20m,EX10m VICTORIANO HERNDON DERMATOLOGY NURSE Apr 01, 2019 13:51
[2019-04-01] MEDS: ENOXAPARIN 40 MG/0.4 ML (LOVENOX) SYR SC SCH (15:03)
--- NOTE | 2019-04-01 16:27 | NUR ---
CM/SS WEEKLY TEAM CONFERENCE SUMMARY Reviewed team summary with patient regarding recommendations for him to be reviewed next Saturday for discharge potential. Patient stated 'that is not acceptable' and that he did not want to remain in the hospital, he had things to do, and he wanted to return to work. Respiratory Therapist attempted negotiation to at least stay a few more days and he did not commit either way. Continued conversation with patient about a firm discharge plan. His plan is and has been that he will go to the home of his ex-spouse Melissa De Guzman; however, his daughter Basil Le expressed concern that he has always been dependent on Melissa for some things even after years of divorce. Basil Le anticipates he would likely expect Melissa to supplement what he was not able to do and decrease his motivation to try to improve for himself. He does not seem to conceive that he would have to be medically cleared to return to work. Patient's son Sorin Mahoney was here this p.m. and patient apparently mentioned going AMA discharge. Melissa came after and remains in patient room, Basil Le was attempting to text her and ask her to go on home for the evening so patient would not pressure her to take him tonight. In conclusion, Basil Le will talk to patient and try to negotiate. He historically smokes and drinks daily, he may be anxious with abstinence from both for this extended period. Respiratory Therapist did not want to revisit patient/Melissa today due to his increasing push to leave. Basil Le said she could come this weekend and try to assist with him at home if he would in fact at least wait until then to discharge. Working in partnership with patient as well as family supports for best plan discharge.
[2019-04-01 18:22] VITALS: BP 129/78
--- NOTE | 2019-04-01 19:10 | NUR ---
bedside report received from OC BARAKAT, assume care of pt
[2019-04-01 20:25] VITALS: BP 113/67
--- NOTE | 2019-04-01 20:51 | NUR ---
pt calm & cooperative took Colace but refused Senokot & miralax, v/s [phone]
[2019-04-02] MEDS: RT-ALBUTEROL/IPRATROPIUM 3 ML (DUONEB) VIAL INH SCH ×3 (04:16→15:34)
[2019-04-02 05:20] VITALS: BP 122/78
[2019-04-02] MEDS: MULTIVIT W/MINERALS TAB (THERAGRAN M) PO SCH (06:35)
--- NOTE | 2019-04-02 07:10 | NUR ---
bedside report given to OC BARAKAT
[2019-04-02] MEDS: THIAMINE 100 MG (VITAMIN B-1) TAB PO SCH (07:54)
[2019-04-02] MEDS: FAMOTIDINE 20 MG (PEPCID) TABLET PO SCH ×2 (07:54→20:59)
[2019-04-02] MEDS: FOLIC ACID 1 MG TAB PO SCH (07:54)
[2019-04-02] MEDS: amLODIPine 5 MG (NORVASC) TAB PO SCH (07:54)
[2019-04-02] MEDS: PANTOPRAZOLE 40 MG (PROTONIX) TAB PO SCH (07:54)
[2019-04-02] MEDS: MAGNESIUM OXIDE (MAG-OX)400 MG TAB PO SCH ×2 (07:54→20:59)
[2019-04-02] MEDS: ASPIRIN E.C. 81 MG (ECOTRIN) TAB PO SCH (07:54)
[2019-04-02] MEDS: SENNA W/DOCUSATE (SENOKOT S) TABLET PO SCH ×2 (07:54→21:00)
[2019-04-02] MEDS: DOCUSATE SODIUM 100 MG (COLACE) CAP PO SCH ×2 (09:00→20:59)
[2019-04-02] MEDS: POLYETHYLENE GLYCOL 17 GM (MIRALAX) PACK PO SCH ×2 (09:00→20:59)
--- NOTE | 2019-04-02 09:27 | Occupational Ther Daily Note ---
OT Current Status-Daily Note Subjective Pt sitting EOB at start of session, agreeable to OT tx this AM. He denied having pain. ADL-Treatment Therapy Code Descriptions/Definitions Functional [place] Measure: 0=Not Assessed/NA 4=Minimal Assistance 1=Total Assistance 5=Supervision or Setup 2=Maximal Assistance 6=Modified [place] 3=Moderate Assistance 7=Complete IndependenceSCALE: Activities may be completed with or without assistive devices. 9-Gehwjzdqco-pdgrhsl completes the activity by him/herself with no assistance from a helper. 5-Set-up or Clean-up Assistance-helper sets up or cleans up; patient completes activity. [place] assists only prior to or following the activity. 4-Supervision or Touching Assistance-helper provides verbal cues and/or touching/steadying and/or contact guard assistance as patient completes activity. Assistance may be provided throughout the activity or intermittently. 3-Partial/Moderate Assistance-helper does LESS THAN HALF the effort. [place] lif ts, holds or supports trunk or limbs, but provides less than half the effort. 2-Substantial/Maximal Assistance-helper does MORE THAN HALF the effort. [place] lifts or holds trunk or limbs and provides more than half the effort. 6-Cozbyhutc-wgmhwd does ALL the effort. Patient does none of the effort to complete the activity. Or, the assistance of 2 or more helpers is required for the patient to complete the activity. If activity was not attempted, code reason: 7-Patient Refused. 9-Not Applicable-not attempted and the patient did not perform the activity before the current illness, exacerbation or injury. 10-Not Attempted due to Environmental Limitations-(lack of equipment, weather restraints, etc.). 88-Not Attempted due to Medical Conditions or Safety Concerns. On/Off Footwear: 1 (OT educated pt on using a sock aid in order to don socks due to decreased coordination in left hand. OT demo'd donning sock onto sock aide, pt was then able to don onto right foot. He then donned the sock onto sock aide, requiring min A, then he was able to pull it onto his left foot. Assistance required for orientation of the sock. Pt then able to put on right shoe, required total assist with AFO & left shoe, and tying both shoes.) Other Treatment Pt sitting EOB, OT educated pt on using a sock aide to don socks due to decreased coordination in his left and and difficulty with donning socks. OT demo'd AE with pt's right foot, he then attempted to use AE in order to don left sock, requiring min A with getting the sock onto the sock aide, then assist with orientation of the sock. Pt was able to don his right shoe but unable to tie the laces. OT assisted pt with donning AFO, putting shoe on, and tying left shoe. Pt transferred from EOB to w/c with a stand pivot transfer. Pt self-propelled w/c to therapy gym where OT traded pt's laces for elastic laces with pt's permi ssion. Pt was then able to doff/don right shoe without assistance from OT, he still required assistance with left shoe due to difficulty getting shoe over his AFO and due to decreased coordination/sensation in LLE. Pt completed fine motor strength and coordination task with graded clothespins (ranging 1-5 lb). He removed/placed clothespins using his LUE with mod verbal cues to take rest breaks as needed and to breath during task. Pt required multiple rest breaks during task. Pt then self-propelled w/c back to his room where he stated he would like to stay up in the w/c. Post OT session, pt upright in w/c, call light and phone in reach and all needs met. Education OT Patient Education: Correct positioning, Energy conservation, Exercise program, Modified ADL techniques, Progress toward Goal/Update tx plan, Purpose of tx/functional activities, Transfer techniques, Use of adapted equipment Teaching Recipient: Patient Teaching Methods: Demonstration Response to Teaching: Return Demonstration, Reinforcement Needed OT Short Term Goals Short Term Goals Time Frame: Apr 08, 2019 Shower/bathe self: 4 Lower body dressin Putting on/taking off footwear: 4 OT Enrollment Advisor Goals Fdc Goals Time Frame: Apr 17, 2019 Eating (QC): 6 Oral Hygiene (QC): 6 Toileting Hygiene (QC): 6 Shower/Bathe Self (QC): 6 Upper Body Dressing (QC): 6 Lower Body Dressing (QC): 6 On/Off Footwear (QC): 6 Additional Goals: 1-Demonstrate ADL Tasks, 2-Verbalize Understanding, 3- ImproveStrength/Vlad 1=Demonstrate adherence to instructed precautions during ADL tasks. 2=Patient will verbalize/demonstrate understanding of assistive devices/modifications for ADL. 3=Patient will improve strength/tolerance for activity to enable patient to perform ADL's. OT Education/Plan Problem List/Assessment Assessment: Decreased Activ Tolerance, Decreased UE Strength, Impaired Coordination, Impaired Funct Balance, Impaired I ADL's, Impaired Self-Care Skills, Restricted Funct UE ROM Discharge Recommendations Plan/Recommendations: Continue POC Treatment Plan/Plan of Care Patient would benefit from OT for education, treatment and training to promote independence in ADL's, mobility, safety and/or upper extremity function for ADL's. Plan of Care: ADL Retraining, Caregiver Training, Functional Mobility, Group Exercise/Act as Ind, UE Funct Exercise/Act, UE Neuromus Re-Ed/Coord Treatment Duration: Apr 17, 2019 Frequency: At least 5 of 7 days/Wk (IRF) Estimated Hrs Per Day: 1.5 hours per day Agreement: Yes Rehab Potential: Good Time/GCodes Start Time: 08:00 Stop Time: 09:15 Total Time Billed (hr/min): 75 Billed Treatment Time 1, ADL 3 (45 mins), FA 2 (30mins) NHAN ADHIKARI OT Apr 02, 2019 09:27
--- NOTE | 2019-04-02 10:23 | PM&R Progress Note ---
Subjective HPI/CC On Admission Date Seen by Provider: Apr 02, 2019 Time Seen by Provider: 08:45 Subjective/Events-last exam Bowels are moving well Working hard in rehab Disposition pending Nebulizer treatments are helping Conferred with city marshal therapy notes Checked meds and labs Review of Systems Neurological: Weakness, Numbness, Incoordination Objective Exam Vital Signs Vital Signs Date Time Temp Pulse Resp B/P (MAP) Pulse Ox O2 Delivery O2 Flow Rate FiO2 04/03/19 05:08 36.8 75 16 154/82 (106) 93 Room Air Capillary Refill : Less Than 3 Seconds General Appearance: No Apparent Distress, WD/WN, Chronically ill HEENT: PERRL/EOMI, Normal ENT Inspection, Pharynx Normal Neck: Full Range of Motion, Normal Inspection, Non Tender, Supple, Carotid Bruit Respiratory: Chest Non Tender, Lungs Clear, Normal Breath Sounds, No Accessory Muscle Use, No Respiratory Distress, Decreased Breath Sounds Cardiovascular: Regular Rate, Rhythm, No Edema, No Gallop, No JVD, No Murmur, Normal Peripheral Pulses Gastrointestinal: Normal Bowel Sounds, No Organomegaly, No Pulsatile Mass, Non Tender, Soft Back: Normal Inspection, No CVA Tenderness, No Vertebral Tenderness Extremity: Normal Capillary Refill, Normal Inspection, Normal Range of Motion, Non Tender, No Calf Tenderness, No Pedal Edema Neurologic/Psychiatric: Alert, Oriented x3, machine try out setter II-XII Norm as Tested, Depressed Affect, Motor Weakness (left arm and leg weakness) Skin: Normal Color, Warm/Dry Lymphatic: No Adenopathy Results/Procedures Lab Patient resulted labs reviewed. FIM Transfers Therapy Code Descriptions/Definitions Functional [place] Measure: 0=Not Assessed/NA 4=Minimal Assistance 1=Total Assistance 5=Supervision or Setup 2=Maximal Assistance 6=Modified [place] 3=Moderate Assistance 7=Complete IndependenceSCALE: Activities may be completed with or without assistive devices. 3-Hgfifvdxyf-ozmsngs completes the activity by him/herself with no assistance from a helper. 5-Set-up or Clean-up Assistance-helper sets up or cleans up; patient completes activity. [place] assists only prior to or following the activity. 4-Supervision or Touching Assistance-helper provides verbal cues and/or touching/steadying and/or contact guard assistance as patient completes activity. Assistance may be provided throughout the activity or intermittently. 3-Partial/Moderate Assistance-helper does LESS THAN HALF the effort. [place] lifts, holds or supports trunk or limbs, but provides less than half the effort. 2-Substantial/Maximal Assistance-helper does MORE THAN HALF the effort. [place] lifts or holds trunk or limbs and provides more than half the effort. 2-Xstdfdhna-bukhoe does ALL the effort. Patient does none of the effort to complete the activity. Or, the assistance of 2 or more helpers is required for the patient to complete the activity. If activity was not attempted, code reason: 7-Patient Refused. 9-Not Applicable-not attempted and the patient did not perform the activity before the current illness, exacerbation or injury. 10-Not Attempted due to Environmental Limitations-(lack of equipment, weather restraints, etc.). 88-Not Attempted due to Medical Conditions or Safety Concerns. Roll Left to Right (QC): 6 Sit to Lying (QC): 6 Sit to Stand (QC): 4 Chair/Mzd-mp-Piguw Xfer(QC): 3 Car Transfer (QC): 2 Gait Training Does the Patient Walk?: Yes Distance: 150' x2 Walk 10 feet (QC): 4 Walk 50 ft with 2 Turns(QC): 4 Walk 150 ft (QC): 4 Walking 10ft/uneven surface-QC: 88 Gait Persons Needed: 1 Gait Assistive Device: Walker Moises Wheelchair Training Does the Pt Use a Wheelchair?: Yes Distance: 150' Wheel 50 ft with 2 turns (QC): 4 Wheel 150 ft (QC): 4 Type of Wheelchair: Manual Stair Training 1 Step (curb) (QC): 88 4 Steps (QC): 88 12 Steps (QC): 88 Balance Picking up an Object (QC): 88 ADL-Treatment Eating (QC): 6 (Per pt report, he is able to cut food and bring food to mouth without assistance. ) Oral Hygiene (QC): 5 (Set up, pt required assistance opening swab, pt able to swab his gums. Pt does not have his dentures at the hospital, declined using toothbrush to scrub his gums. ) Shower/Bathe Self (QC): 3 Upper Body Dressing (QC): 3 Lower Body Dressing (QC): 3 On/Off Footwear (QC): 1 (OT educated pt on using a sock aid in order to don socks due to decreased coordination in left hand. OT demo'd donning sock onto sock aide, pt was then able to don onto right foot. He then donned the sock onto sock aide, requiring min A, then he was able to pull it onto his left foot. Assistance required for orientation of the sock. Pt then able to put on right shoe, required total assist with AFO & left shoe, and tying both shoes.) Toileting Hygiene (QC): 3 (Pt able to place urinal and void, OT assisted with holding urinal in order for it not to spill. OT then emtied urinal for pt.) Assessment/Plan Assessment and Plan Assess & Plan/Chief Complaint Assessment: CVA Left-sided weakness Hypertension Current smoker Noncompliance Reflux Diminished breath sounds in lower lobes now improved with Nebs Low grade fever resolved Plan: Inpatient rehabilitation protocol Blood pressure control Monitor labs Maintain good bowel function Pepcid and Protonix Neb treatments Incentive spirometer (1) CVA (cerebral vascular accident) (2) Smoker (3) Hypertension (4) Noncompliance (5) Left-sided weakness (6) GERD (gastroesophageal reflux disease) YOLANDA KEITH DO Apr 02, 2019 10:23
--- NOTE | 2019-04-02 11:10 | Physical Therapy Daily Note ---
PT Daily Note-Current Subjective Patient in WC pre tx, agrees to PT, has no complaints of pain. Patient has an AFO and shoes now. Appearance Patient in recliner post tx with nurse call, phone, tray, all needs met. Mental Status Patient Orientation: Person, Place, Situation Transfers SCALE: Activities may be completed with or without assistive devices. 6-Fludobfjvr-dinltcy completes the activity by him/herself with no assistance from a helper. 5-Set-up or Clean-up Assistance-helper sets up or cleans up; patient completes activity. [place] assists only prior to or following the activity. 4-Supervision or Touching Assistance-helper provides verbal cues and/or touching/steadying and/or contact guard assistance as patient completes activity. Assistance may be provided throughout the activity or intermittently. 3-Partial/Moderate Assistance-helper does LESS THAN HALF the effort. [place] lifts, holds or supports trunk or limbs, but provides less than half the effort. 2-Substantial/Maximal Assistance-helper does MORE THAN HALF the effort. [place] lifts or holds trunk or limbs and provides more than half the effort. 7-Zvifazrsm-ohyqnm does ALL the effort. Patient does none of the effort to complete the activity. Or, the assistance of 2 or more helpers is required for the patient to complete the activity. If activity was not attempted, code reason: 7-Patient Refused. 9-Not Applicable-not attempted and the patient did not perform the activity before the current illness, exacerbation or injury. 10-Not Attempted due to Environmental Limitations-(lack of equipment, weather restraints, etc.). 88-Not Attempted due to Medical Conditions or Safety Concerns. Sit to Stand (QC): 4 Chair/Rbx-fx-[place] Xfer(QC): 4 CGA, improved transfer to the left side Weight Bearing Full Weight Bearing Full Weight Bearing Gait Training Distance: 200'x2, 120' Walk 10 feet (QC): 3 Walk 50 ft with 2 Turns(QC): 3 Walk 150 ft (QC): 3 Gait Assistive Device: Cane Single Point Min assist for unsteadiness, improved step through with left leg using AFO, used a hemiwalker for 200' and then a SPC for 200' and then 120'. Patient still min assist with SPC and seems to use it just as well as the hemiwalker. Wheelchair Training Does the Pt Use a Wheelchair?: Yes Wheel 50 ft with 2 turns (QC): 5 Wheel 150 ft (QC): 5 Type of Wheelchair: Manual Exercises Standing: Hamstring curls, 3 way Ex=Flex, Abd, Ext (not extension), Marching Standing Reps: 15 LAQ left side for 2 min NuStep Minutes: 15 NuStep Workload: 4 Treatments transfers, ambulation, LE exercise Assessment Current Status: Fair Progress improving ambulation and transfers to the left side PT Short Term Goals Short Term Goals Time Frame: Apr 02, 2019 Roll Left & Right: 6 Sit to lyin Lying to sitting on side of be: 6 Sit to stand: 3 Chair/vyd-hh-jfhuy transfer: 3 Walk 10 feet: 3 Walk 50 feet with two turns: 3 PT Clinical Quality Rn Goals Clinical Quality Rn Goals PT Clinical Quality Rn Goals Time Frame: Apr 16, 2019 Roll Left & Right (QC): 6 Sit to Lying (QC): 6 Lying-Sitting on Side/Bed(QC): 6 Sit to Stand (QC): 4 Chair/Qlv-pu-Odzrs Xfer(QC): 4 Toilet Transfer (QC): 4 Car Transfer (QC): 4 Walk 10 feet (QC): 3 Walk 50ft with 2 Turns (QC): 3 Walk 150 ft (QC): 3 Walking 10ft on Uneven Surface: 3 1 Step (curb) (QC): 3 4 Steps (QC): 3 PT Plan Problem List Problem List: Activity Tolerance, Functional Strength, Safety, Balance, Gait, Transfer Treatment/Plan Treatment Plan: Continue Plan of Care Treatment Plan: Bed Mobility, Education, Functional Activity Vlad, Functional Strength, Gait, Safety, Therapeutic Exercise, Transfers Treatment Duration: May 02, 2019 Frequency: At least 5 of 7 days/Wk (IRF) Estimated Hrs Per Day: 1.5 hours per day Patient and/or Family Agrees t: Yes Safety Risks/Education Patient Education: Gait Training, Transfer Techniques, Correct Positioning, W/C Management, Safety Issues Teaching Recipient: Patient Teaching Methods: Demonstration, Discussion Response to Teaching: Reinforcement Needed Time/GCodes Time In: 1005 Time Out: 1105 Total Billed Treatment Time: 60 Total Billed Treatment 1 visit GT 20' EX 30' FA 10' JESSE CAMACHO PT Apr 02, 2019 11:10
--- NOTE | 2019-04-02 11:50 | Physical Therapy Daily Note ---
PT Daily Note-Current Subjective Patient in recliner pre tx, agrees to PT, has no complaints of pain at rest. Appearance Patient in recliner post tx with nurse call, phone, tray, all needs met. Mental Status Patient Orientation: Person, Place, Situation Transfers SCALE: Activities may be completed with or without assistive devices. 2-Btrrwoaaha-gbzadyx completes the activity by him/herself with no assistance from a helper. 5-Set-up or Clean-up Assistance-helper sets up or cleans up; patient completes activity. [place] assists only prior to or following the activity. 4-Supervision or Touching Assistance-helper provides verbal cues and/or touching/steadying and/or contact guard assistance as patient completes activity. Assistance may be provided throughout the activity or intermittently. 3-Partial/Moderate Assistance-helper does LESS THAN HALF the effort. [place] lifts, holds or supports trunk or limbs, but provides less than half the effort. 2-Substantial/Maximal Assistance-helper does MORE THAN HALF the effort. [place] lifts or holds trunk or limbs and provides more than half the effort. 5-Bryalbbsh-bakokf does ALL the effort. Patient does none of the effort to complete the activity. Or, the assistance of 2 or more helpers is required for the patient to complete the activity. If activity was not attempted, code reason: 7-Patient Refused. 9-Not Applicable-not attempted and the patient did not perform the activity before the current illness, exacerbation or injury. 10-Not Attempted due to Environmental Limitations-(lack of equipment, weather restraints, etc.). 88-Not Attempted due to Medical Conditions or Safety Concerns. Weight Bearing Full Weight Bearing Full Weight Bearing Exercises Seated Therapy Exercises: Ankle pumps, Long arc quads, Hip flexion, Hip abd/add Seated Reps: 20 Treatments LE exercise Assessment Current Status: Fair Progress Patient had difficulty with LLE on LAQ and hip flexion but was able to complete exercise without assist but needed a couple of rest breaks during exercise. PT Short Term Goals Short Term Goals Time Frame: Apr 02, 2019 Roll Left & Right: 6 Sit to lyin Lying to sitting on side of be: 6 Sit to stand: 3 Chair/nfd-lq-rinei transfer: 3 Walk 10 feet: 3 Walk 50 feet with two turns: 3 PT [facility] Goals Sterile Processing Tech Goals PT Sterile Processing Tech Goals Time Frame: Apr 16, 2019 Roll Left & Right (QC): 6 Sit to Lying (QC): 6 Lying-Sitting on Side/Bed(QC): 6 Sit to Stand (QC): 4 Chair/Gkm-iy-Hjjxq Xfer(QC): 4 Toilet Transfer (QC): 4 Car Transfer (QC): 4 Walk 10 feet (QC): 3 Walk 50ft with 2 Turns (QC): 3 Walk 150 ft (QC): 3 Walking 10ft on Uneven Surface: 3 1 Step (curb) (QC): 3 4 Steps (QC): 3 PT Plan Problem List Problem List: Activity Tolerance, Functional Strength, Safety, Balance, Gait, Transfer Treatment/Plan Treatment Plan: Continue Plan of Care Treatment Plan: Bed Mobility, Education, Functional Activity Vlad, Functional Strength, Gait, Safety, Therapeutic Exercise, Transfers Treatment Duration: May 02, 2019 Frequency: At least 5 of 7 days/Wk (IRF) Estimated Hrs Per Day: 1.5 hours per day Patient and/or Family Agrees t: Yes Safety Risks/Education Patient Education: Correct Positioning, Safety Issues Teaching Recipient: Patient Teaching Methods: Demonstration, Discussion Response to Teaching: Reinforcement Needed Time/GCodes Time In: 1135 Time Out: 1150 Total Billed Treatment Time: 15 Total Billed Treatment 1 visit EX 15' JESSE CAMACHO PT Apr 02, 2019 11:50
--- NOTE | 2019-04-02 14:27 | Speech Therapy Daily Note ---
Speech Daily Progress Note Subjective Date Seen by Provider: Apr 02, 2019 Time Seen by Provider: 11:00 Patient was alert and cooperative for all therapy tasks. Patient reported that he was feeling a little tired tired. Patient was sitting upright in his chair for the duration of treatment. Objective Patient completed problem solving tasks pertaining to abstract categorical naming with 80% accuracy with moderate cues. Treatment Plan Continue Plan of Care Speech Short Term Goals Short Term Goals Short Term Goals 1. Patient will complete memory tasks with 90% or greater with minimal cues. 2. Patient will complete problem-solving tasks with 90% or greater with minimal cues. 3. Patient will complete safety awareness tasks with 90% or greater with minimal cues. 4. Patient will complete word finding tasks with 90% or greater with minimal cues. 5. Patient will complete speech production tasks with 90% or greater with minimal cues. Speech Drivability Technician Goals Drivability Technician Goals Patient will improve cognitive-communication necessary for safety and daily living tasks with minimal assist. Speech-Plan Patient/Family Goals Patient/Family Goals: Patient reports that he is wanting to return home and back to work upon discharge from the ARU. Treatment Plan Speech Therapy Treatment Plan: Continue Plan of Care Treatment Duration: Apr 03, 2019 Frequency: 5 times per week Estimated Hrs Per Day: .5 hour per day Rehab Potential: Good Barriers to Learning: Mild cognitive deficits Pt/Family Agrees to Plan: Yes Safety Risks/Education Teaching Recipient: Patient Teaching Methods: Demonstration, Discussion Response to Teaching: Verbalize Understanding Education Topics Provided: Patient was provided strategies to alleviate periods of difficulty in the area of memory recall. Time Speech Therapy Time In: 11:00 Speech Therapy Time Out: 11:30 Total Billed Time: 30 Billed Treatment Time 1[address] Apr 02, 2019 14:27
[2019-04-02] MEDS: ENOXAPARIN 40 MG/0.4 ML (LOVENOX) SYR SC SCH (15:56)
--- NOTE | 2019-04-02 16:01 | NUR ---
CM/SS CONCURRENT NOTE PLAN: Discharge home with ex- Melissa De Guzman 04/07/19. Family training that morning prior to dismissal. SUMMARY: Discussion with patient's daughter last evening and this date. Explored patient's current LOF with therapy team. Patient is in range of Min Assist concerning for his request to leave for home sooner than recommended. Discussed safety and patient's overall progressive improvement with professional interventions, oversight, assistance. Cautioned about returning home too soon due to residual impairment, particularly regarding left lower extremity and potential for trips/falls. Patient more calm today and accepting of conversation. While he does desire to return home, he did agree to continue his stay until 04/07/19 but did plead that we please make the plan for his discharge on that day. Approached patient about a nicotine patch due to former daily tobaccoism, he indicates it has been so long he felt it might make him sick. He also stated it was not so much the nicotine as it was just the symbol and handling the smoke in his hands. Patient does not want a patch at this time and doesn't identify it as an issue. Patient's daughter Basil Le updated of new plan for next Saturday, she will bring Melissa, anticipated arrival mid-morning.
[2019-04-02 17:09] VITALS: BP 119/73
[2019-04-03] MEDS: RT-ALBUTEROL/IPRATROPIUM 3 ML (DUONEB) VIAL INH SCH ×4 (00:15→19:06)
[2019-04-03 05:08] VITALS: BP 154/82
[2019-04-03] MEDS: MULTIVIT W/MINERALS TAB (THERAGRAN M) PO SCH (06:08)
[2019-04-03] MEDS: DOCUSATE SODIUM 100 MG (COLACE) CAP PO SCH ×2 (08:59→21:21)
[2019-04-03] MEDS: FOLIC ACID 1 MG TAB PO SCH (09:00)
[2019-04-03] MEDS: POLYETHYLENE GLYCOL 17 GM (MIRALAX) PACK PO SCH ×2 (09:00→21:21)
[2019-04-03] MEDS: ASPIRIN E.C. 81 MG (ECOTRIN) TAB PO SCH (09:00)
[2019-04-03] MEDS: THIAMINE 100 MG (VITAMIN B-1) TAB PO SCH (09:00)
[2019-04-03] MEDS: FAMOTIDINE 20 MG (PEPCID) TABLET PO SCH ×2 (09:00→21:20)
[2019-04-03] MEDS: amLODIPine 5 MG (NORVASC) TAB PO SCH (09:00)
[2019-04-03] MEDS: PANTOPRAZOLE 40 MG (PROTONIX) TAB PO SCH (09:00)
[2019-04-03] MEDS: MAGNESIUM OXIDE (MAG-OX)400 MG TAB PO SCH ×2 (09:00→21:20)
[2019-04-03] MEDS: SENNA W/DOCUSATE (SENOKOT S) TABLET PO SCH ×2 (09:00→21:21)
--- NOTE | 2019-04-03 10:55 | Occupational Ther Daily Note ---
OT Current Status-Daily Note Subjective Pt sitting in chair, agrees to therapy. Pt has no reports of pain, but states his left arm feels tired today. ADL-Treatment Pt declined to shower or change clothes this morning. Pt donned right shoe with SBA, but requires assist to don left AFO and shoe. Therapy Code Descriptions/Definitions Functional [place] Measure: 0=Not Assessed/NA 4=Minimal Assistance 1=Total Assistance 5=Supervision or Setup 2=Maximal Assistance 6=Modified [place] 3=Moderate Assistance 7=Complete IndependenceSCALE: Activities may be completed with or without assistive devices. 2-Jdhsvuqdob-wtpxnap completes the activity by him/herself with no assistance from a helper. 5-Set-up or Clean-up Assistance-helper sets up or cleans up; patient completes activity. [place] assists only prior to or following the activity. 4-Supervision or Touching Assistance-helper provides verbal cues and/or touching/steadying and/or contact guard assistance as patient completes ac tivity. Assistance may be provided throughout the activity or intermittently. 3-Partial/Moderate Assistance-helper does LESS THAN HALF the effort. [place] lifts, holds or supports trunk or limbs, but provides less than half the effort. 2-Substantial/Maximal Assistance-helper does MORE THAN HALF the effort. [place] lifts or holds trunk or limbs and provides more than half the effort. 7-Dbmcvywyx-rtlpqs does ALL the effort. Patient does none of the effort to complete the activity. Or, the assistance of 2 or more helpers is required for the patient to complete the activity. If activity was not attempted, code reason: 7-Patient Refused. 9-Not Applicable-not attempted and the patient did not perform the activity before the current illness, exacerbation or injury. 10-Not Attempted due to Environmental Limitations-(lack of equipment, weather restraints, etc.). 88-Not Attempted due to Medical Conditions or Safety Concerns. Other Treatment Sit to stand with CGA. Gait to therapy gym with cane with min assist for balance and cues for safety. Pt completed AROM left UE to increase strength and activity tolerance. Pt fatigues quickly and requires rest breaks. Pt requires cues for breathing during exercises. Pt completed coordination task with large pegs using left hand. Pt able to remove pegs from pegboard, but has difficulty replacing them and fatigues quickly. Increased time required. Pt completed reaching activity with left hand. Pt able to pickers material handlers small cones and stack them with increased time and effort. Arm bike x5 minutes to increase overall strength and activity tolerance needed for functional tasks. Pt completed activity without resistance and with slow pace. Pt has mild difficulty maintaining inletter with left hand. Pt used left hand to pickers material handlers beanbags from right side and place in basket on left side to increase ROM, reaching, and grasp/release. Cues for breathing during activity. Pt completed putty activity with left hand to increase inletter/hand strength. Pt returned to room, sitting in chair with needs met after session. OT Short Term Goals Short Term Goals Time Frame: Apr 08, 2019 Shower/bathe self: 4 Lower body dressin Putting on/taking off footwear: 4 OT Art Specialist Goals Art Specialist Goals Time Frame: Apr 17, 2019 Eating (QC): 6 Oral Hygiene (QC): 6 Toileting Hygiene (QC): 6 Shower/Bathe Self (QC): 6 Upper Body Dressing (QC): 6 Lower Body Dressing (QC): 6 On/Off Footwear (QC): 6 Additional Goals: 1-Demonstrate ADL Tasks, 2-Verbalize Understanding, 3- ImproveStrength/Vlad 1=Demonstrate adherence to instructed precautions during ADL tasks. 2=Patient will verbalize/demonstrate understanding of assistive devices/modifications for ADL. 3=Patient will improve strength/tolerance for activity to enable patient to perform ADL's. OT Education/Plan Discharge Recommendations Plan/Recommendations: Continue POC Treatment Plan/Plan of Care Patient would benefit from OT for education, treatment and training to promote independence in ADL's, mobility, safety and/or upper extremity function for ADL's. Plan of Care: ADL Retraining, Caregiver Training, Functional Mobility, Group Exercise/Act as Ind, UE Funct Exercise/Act, UE Neuromus Re-Ed/Coord Treatment Duration: Apr 17, 2019 Frequency: At least 5 of 7 days/Wk (IRF) Estimated Hrs Per Day: 1.5 hours per day Agreement: Yes Rehab Potential: Good Time/GCodes Start Time: 08:00 Stop Time: 09:15 Total Time Billed (hr/min): 75 Billed Treatment Time 1 visit, EXx2(30minutes), FAx3(45minutes) MISHEL ORTIZ OT Apr 03, 2019 10:54
--- NOTE | 2019-04-03 11:40 | Physical Therapy Daily Note ---
PT Daily Note-Current Subjective Patient in recliner pre tx, agrees to PT, has no complaints of pain. Appearance Patient in recliner post tx with nurse call, phone, tray, all needs met. Mental Status Patient Orientation: Normal For Age Transfers SCALE: Activities may be completed with or without assistive devices. 2-Wwwzxpjiqt-ayvlsrh completes the activity by him/herself with no assistance from a helper. 5-Set-up or Clean-up Assistance-helper sets up or cleans up; patient completes activity. [place] assists only prior to or following the activity. 4-Supervision or Touching Assistance-helper provides verbal cues and/or touching/steadying and/or contact guard assistance as patient completes activity. Assistance may be provided throughout the activity or intermittently. 3-Partial/Moderate Assistance-helper does LESS THAN HALF the effort. [place] lifts, holds or supports trunk or limbs, but provides less than half the effort. 2-Substantial/Maximal Assistance-helper does MORE THAN HALF the effort. [place] lifts or holds trunk or limbs and provides more than half the effort. 0-Tupiisstk-xvpxpo does ALL the effort. Patient does none of the effort to complete the activity. Or, the assistance of 2 or more helpers is required for the patient to complete the activity. If activity was not attempted, code reason: 7-Patient Refused. 9-Not Applicable-not attempted and the patient did not perform the activity before the current illness, exacerbation or injury. 10-Not Attempted due to Environmental Limitations-(lack of equipment, weather restraints, etc.). 88-Not Attempted due to Medical Conditions or Safety Concerns. Roll Left & Right (QC): 6 Sit to Lying (QC): 6 Sit to Stand (QC): 4 Chair/Zjz-hr-Dlrnm Xfer(QC): 3 CGA for sit to stand, min assist for transfers to the left side, CGA for transfers to the right side. Occasional assist with balance when turning and transferring to the left side. Weight Bearing Full Weight Bearing Full Weight Bearing Gait Training Distance: 150'x2 Walk 10 feet (QC): 3 Walk 50 ft with 2 Turns(QC): 3 Walk 150 ft (QC): 3 Gait Assistive Device: Cane Single Point Improved ambulation overall but tends to still drag left foot a bit, needs cues for clearance, occasional assist with balance, uncoordinated steps. Exercises Supine Ex: Ankle pumps, Quad Set, Glut sets, Heel Slides, Short Arc Quads, Straight leg raise, Hip abd/add Supine Reps: 20 LAQ left side for 5 min, hooklying hip abd/add with RTB and ball, bridges x20, supine knee fallouts x20 each side NuStep Minutes: 15 NuStep Workload: 4 Treatments transfers, ambulation, functional strengthening Assessment Current Status: Fair Progress improving general mobility but still needs assist with transfers to the left side and ambulation PT Short Term Goals Short Term Goals Time Frame: Apr 02, 2019 Roll Left & Right: 6 Sit to lyin Lying to sitting on side of be: 6 Sit to stand: 3 Chair/vwv-ua-qqixa transfer: 3 Walk 10 feet: 3 Walk 50 feet with two turns: 3 PT Multi Media Specialist Goals Skilled Nursing Goals PT Skilled Nursing Goals Time Frame: Apr 16, 2019 Roll Left & Right (QC): 6 Sit to Lying (QC): 6 Lying-Sitting on Side/Bed(QC): 6 Sit to Stand (QC): 4 Chair/Sej-rx-Epeat Xfer(QC): 4 Toilet Transfer (QC): 4 Car Transfer (QC): 4 Walk 10 feet (QC): 3 Walk 50ft with 2 Turns (QC): 3 Walk 150 ft (QC): 3 Walking 10ft on Uneven Surface: 3 1 Step (curb) (QC): 3 4 Steps (QC): 3 PT Plan Problem List Problem List: Activity Tolerance, Functional Strength, Safety, Balance, Gait, Transfer, ROM Treatment/Plan Treatment Plan: Continue Plan of Care Treatment Plan: Bed Mobility, Education, Functional Activity Vlad, Functional Strength, Gait, Safety, Therapeutic Exercise, Transfers Treatment Duration: May 02, 2019 Frequency: At least 5 of 7 days/Wk (IRF) Estimated Hrs Per Day: 1.5 hours per day Patient and/or Family Agrees t: Yes Safety Risks/Education Patient Education: Gait Training, Transfer Techniques, Correct Positioning, Safety Issues Teaching Recipient: Patient Teaching Methods: Demonstration, Discussion Response to Teaching: Reinforcement Needed Time/GCodes Time In: 1030 Time Out: 1145 Total Billed Treatment Time: 75 Total Billed Treatment 1 visit GT 15' EX 60' JESSE CAMACHO PT Apr 03, 2019 11:40
--- NOTE | 2019-04-03 11:58 | PM&R Progress Note ---
Subjective HPI/CC On Admission Date Seen by Provider: Apr 03, 2019 Time Seen by Provider: 09:30 Subjective/Events-last exam Bowels are moving okay Home on Saturday with ex AFO walking well BP is doing very well Conferred with apparel fashion designer therapy notes Checked meds and labs Review of Systems General: Fatigue Objective Exam Vital Signs Vital Signs Date Time Temp Pulse Resp B/P (MAP) Pulse Ox O2 Delivery O2 Flow Rate FiO2 04/03/19 19:07 95 Room Air 04/03/19 18:00 36.7 80 18 123/78 (93) Capillary Refill : Less Than 3 Seconds General Appearance: No Apparent Distress, WD/WN, Chronically ill HEENT: PERRL/EOMI, Normal ENT Inspection, Pharynx Normal Neck: Full Range of Motion, Normal Inspection, Non Tender, Supple, Carotid Bruit Respiratory: Chest Non Tender, Lungs Clear, Normal Breath Sounds, No Accessory Muscle Use, No Respiratory Distress, Decreased Breath Sounds Cardiovascular: Regular Rate, Rhythm, No Edema, No Gallop, No JVD, No Murmur, Normal Peripheral Pulses Gastrointestinal: Normal Bowel Sounds, No Organomegaly, No Pulsatile Mass, Non Tender, Soft Back: Normal Inspection, No CVA Tenderness, No Vertebral Tenderness Extremity: Normal Capillary Refill, Normal Inspection, Normal Range of Motion, Non Tender, No Calf Tenderness, No Pedal Edema Neurologic/Psychiatric: Alert, Oriented x3, dog track kennel manager II-XII Norm as Tested, Depressed Affect, Motor Weakness (left arm and leg weakness) Skin: Normal Color, Warm/Dry Lymphatic: No Adenopathy Results/Procedures Lab Patient resulted labs reviewed. FIM Transfers Therapy Code Descriptions/Definitions Functional [place] Measure: 0=Not Assessed/NA 4=Minimal Assistance 1=Total Assistance 5=Supervision or Setup 2=Maximal Assistance 6=Modified [place] 3=Moderate Assistance 7=Complete IndependenceSCALE: Activities may be completed with or without assistive devices. 4-Olfgdtjyof-wkvicjb completes the activity by him/herself with no assistance from a helper. 5-Set-up or Clean-up Assistance-helper sets up or cleans up; patient completes activity. [place] assists only prior to or following the activity. 4-Supervision or Touching Assistance-helper provides verbal cues and/or touching/steadying and/or contact guard assistance as patient completes activity. Assistance may be provided throughout the activity or intermittently. 3-Partial/Moderate Assistance-helper does LESS THAN HALF the effort. [place] lifts, holds or supports trunk or limbs, but provides less than half the effort. 2-Substantial/Maximal Assistance-helper does MORE THAN HALF the effort. [place] lifts or holds trunk or limbs and provides more than half the effort. 4-Pcnwgsktw-yehfqb does ALL the effort. Patient does none of the effort to complete the activity. Or, the assistance of 2 or more helpers is required for the patient to complete the activity. If activity was not attempted, code reason: 7-Patient Refused. 9-Not Applicable-not attempted and the patient did not perform the activity before the current illness, exacerbation or injury. 10-Not Attempted due to Environmental Limitations-(lack of equipment, weather restraints, etc.). 88-Not Attempted due to Medical Conditions or Safety Concerns. Roll Left to Right (QC): 6 Sit to Lying (QC): 6 Sit to Stand (QC): 4 Chair/Fbi-mp-Hters Xfer(QC): 3 Car Transfer (QC): 2 Gait Training Does the Patient Walk?: Yes Distance: 150'x2 Walk 10 feet (QC): 3 Walk 50 ft with 2 Turns(QC): 3 Walk 150 ft (QC): 3 Walking 10ft/uneven surface-QC: 88 Gait Persons Needed: 1 Gait Assistive Device: Cane Single Point Wheelchair Training Does the Pt Use a Wheelchair?: Yes Distance: 150' Wheel 50 ft with 2 turns (QC): 5 Wheel 150 ft (QC): 5 Type of Wheelchair: Manual Stair Training 1 Step (curb) (QC): 88 4 Steps (QC): 88 12 Steps (QC): 88 Balance Picking up an Object (QC): 88 ADL-Treatment Eating (QC): 6 (Per pt report, he is able to cut food and bring food to mouth without assistance. ) Oral Hygiene (QC): 5 (Set up, pt required assistance opening swab, pt able to swab his gums. Pt does not have his dentures at the hospital, declined using toothbrush to scrub his gums. ) Shower/Bathe Self (QC): 3 Upper Body Dressing (QC): 3 Lower Body Dressing (QC): 3 On/Off Footwear (QC): 1 (OT educated pt on using a sock aid in order to don socks due to decreased coordination in left hand. OT demo'd donning sock onto sock aide, pt was then able to don onto right foot. He then donned the sock onto sock aide, requiring min A, then he was able to pull it onto his left foot. Assistance required for orientation of the sock. Pt then able to put on right shoe, required total assist with AFO & left shoe, and tying both shoes.) Toileting Hygiene (QC): 3 (Pt able to place urinal and void, OT assisted with holding urinal in order for it not to spill. OT then emtied urinal for pt.) Assessment/Plan Assessment and Plan Assess & Plan/Chief Complaint Assessment: CVA Left-sided weakness Hypertension Current smoker Noncompliance Reflux Diminished breath sounds in lower lobes now improved with Nebs Low grade fever resolved Plan: Inpatient rehabilitation protocol Blood pressure control Monitor labs Maintain good bowel function Pepcid and Protonix Neb treatments Incentive spirometer (1) CVA (cerebral vascular accident) (2) Smoker (3) Hypertension (4) Noncompliance (5) Left-sided weakness (6) GERD (gastroesophageal reflux disease) YOLANDA KEITH DO Apr 03, 2019 11:58
--- NOTE | 2019-04-03 13:45 | NUR ---
"RD ASSESSMENT PMHx: CVA; HTN PT INTERACTION: Pt was awake and pleasant during nutrition follow-up. Pt states he has been eating well since last assessment. Note avg PO intake of 96% x4d, per chart review. Pt states no issues with n/v/c/d since last assessment. Note last BM was 04/02, and pt currently on bowel regimen of colace BID; senna BID; and miralax BID, per chart review. ABNORMAL NUTRITION-RELATED LAB VALUES LOW: Ca 8.2 HIGH: Cl 108; glu 106; AST 38 Est. kcal needs: 5091-6011 kcal | 20-25 kcal/kg Est. Pro needs: 77-96 g Pro | 0.8-1.0 g Pro/kg PES STATEMENT: Given pt's PO intake, no nutrition diagnosis at this time (NO-1.1) INTERVENTION: Continue with current diet order of Regular diet. Will continue to follow and reassess as pt needs and status change. MONITOR/EVALUATE: PO Intake; Plan of Care; Hydration Status; Weight Status; Lab Values Ace De La Garza, MS, RD, LD"
--- NOTE | 2019-04-03 14:43 | Speech Therapy Daily Note ---
Speech Daily Progress Note Subjective Date Seen by Provider: Apr 03, 2019 Time Seen by Provider: 13:00 Patient was alert, upbeat, and cooperative for all therapy activities. Patient was sitting upright in his chair for the duration of treatment. Objective Patient completed problem-solving tasks pertaining to abstract sentence/humor with 90% accuracy. Assessment Assessment Current Status: Good Progress Treatment Plan Continue Plan of Care Speech Short Term Goals Short Term Goals Short Term Goals 1. Patient will complete memory tasks with 90% or greater with minimal cues. 2. Patient will complete problem-solving tasks with 90% or greater with minimal cues. 3. Patient will complete safety awareness tasks with 90% or greater with minimal cues. 4. Patient will complete word finding tasks with 90% or greater with minimal cues. 5. Patient will complete speech production tasks with 90% or greater with minimal cues. Speech [facility] Goals [facility] Goals Patient will improve cognitive-communication necessary for safety and daily living tasks with minimal assist. Speech-Plan Patient/Family Goals Patient/Family Goals: Patient reports that he wishes to return home to prior level of independence and mobility. Treatment Plan Speech Therapy Treatment Plan: Continue Plan of Care Treatment Duration: Apr 10, 2019 Frequency: 5 times per week Estimated Hrs Per Day: .5 hour per day Rehab Potential: Good Barriers to Learning: Mild cognitive deficits Pt/Family Agrees to Plan: Yes Safety Risks/Education Teaching Recipient: Patient Teaching Methods: Demonstration, Discussion Response to Teaching: Verbalize Understanding Education Topics Provided: Patient verbalized understanding of safety awareness upon ARU discharge. Time Speech Therapy Time In: 13:00 Speech Therapy Time Out: 13:30 Total Billed Time: 30 Billed Treatment Time [address] Apr 03, 2019 14:43
[2019-04-03] MEDS: ENOXAPARIN 40 MG/0.4 ML (LOVENOX) SYR SC SCH (15:34)
[2019-04-03 18:00] VITALS: BP 123/78
--- NOTE | 2019-04-03 19:14 | NUR ---
bedside report received from CANDIE BARAKAT, assume care of pt
--- NOTE | 2019-04-03 21:20 | NUR ---
refused Colace, miralax & Tammieot
[2019-04-04 06:20] VITALS: BP 135/67
[2019-04-04] MEDS: MULTIVIT W/MINERALS TAB (THERAGRAN M) PO SCH (06:37)
[2019-04-04] MEDS: FAMOTIDINE 20 MG (PEPCID) TABLET PO SCH ×2 (08:26→21:02)
[2019-04-04] MEDS: MAGNESIUM OXIDE (MAG-OX)400 MG TAB PO SCH ×2 (08:26→21:02)
[2019-04-04] MEDS: SENNA W/DOCUSATE (SENOKOT S) TABLET PO SCH ×2 (08:26→21:03)
[2019-04-04] MEDS: DOCUSATE SODIUM 100 MG (COLACE) CAP PO SCH ×2 (08:26→21:03)
[2019-04-04] MEDS: PANTOPRAZOLE 40 MG (PROTONIX) TAB PO SCH (08:26)
[2019-04-04] MEDS: THIAMINE 100 MG (VITAMIN B-1) TAB PO SCH (08:26)
[2019-04-04] MEDS: FOLIC ACID 1 MG TAB PO SCH (08:26)
[2019-04-04] MEDS: amLODIPine 5 MG (NORVASC) TAB PO SCH (08:26)
[2019-04-04] MEDS: ASPIRIN E.C. 81 MG (ECOTRIN) TAB PO SCH (08:27)
[2019-04-04] MEDS: POLYETHYLENE GLYCOL 17 GM (MIRALAX) PACK PO SCH ×2 (08:27→21:03)
[2019-04-04] MEDS: RT-ALBUTEROL/IPRATROPIUM 3 ML (DUONEB) VIAL INH SCH ×3 (08:41→19:11)
--- NOTE | 2019-04-04 10:22 | Physical Therapy Daily Note ---
PT Daily Note-Current Subjective Pt. states he gets really tired here after therapies and sleeps well. Agreeable to Rx . Pain Location: No Pain Reported Mental Status Patient Orientation: Normal For Age Transfers SCALE: Activities may be completed with or without assistive devices. 1-Qgwaurhxql-muimjkr completes the activity by him/herself with no assistance f rom a helper. 5-Set-up or Clean-up Assistance-helper sets up or cleans up; patient completes activity. [place] assists only prior to or following the activity. 4-Supervision or Touching Assistance-helper provides verbal cues and/or touching/steadying and/or contact guard assistance as patient completes activity. Assistance may be provided throughout the activity or intermittently. 3-Partial/Moderate Assistance-helper does LESS THAN HALF the effort. [place] lifts, holds or supports trunk or limbs, but provides less than half the effort. 2-Substantial/Maximal Assistance-helper does MORE THAN HALF the effort. [place] lifts or holds trunk or limbs and provides more than half the effort. 7-Yypjufpwa-muudkw does ALL the effort. Patient does none of the effort to complete the activity. Or, the assistance of 2 or more helpers is required for the patient to complete the activity. If activity was not attempted, code reason: 7-Patient Refused. 9-Not Applicable-not attempted and the patient did not perform the activity before the current illness, exacerbation or injury. 10-Not Attempted due to Environmental Limitations-(lack of equipment, weather restraints, etc.). 88-Not Attempted due to Medical Conditions or Safety Concerns. Roll Left & Right (QC): 6 Sit to Lying (QC): 6 Lying to Sitting/Side of Bed(Q: 6 Sit to Stand (QC): 6 Chair/Kzp-rp-Nhiki Xfer(QC): 6 Weight Bearing Full Weight Bearing Full Weight Bearing Gait Training Does the Patient Walk?: Yes Walk 10 feet (QC): 4 Walk 50 ft with 2 Turns(QC): 4 Walk 150 ft (QC): 4 Gait Persons Needed: 1 Gait Assistive Device: Cane Single Point AFO on LLE foot "sticks/ scrapes" on floor during swing phase. Pt. with one LOB episode with LLE foot not advancing well requiring mod assist to recover. SPC and osmar walker both used today. Exercises NuStep Minutes: 10 NuStep Workload: 5 Neuromuscular pt. utilizing hand on hvac operations technician of Nustep to concentrate on hvac operations technician and LUE strength dynamically during LE exercise Assessment Current Status: Good Progress PT Short Term Goals Short Term Goals Time Frame: Apr 02, 2019 Roll Left & Right: 6 Sit to lyin Lying to sitting on side of be: 6 Sit to stand: 3 Chair/wre-hs-cpyvj transfer: 3 Walk 10 feet: 3 Walk 50 feet with two turns: 3 PT Hazardous Materials Tanker Driver Goals Skilled Nursing Goals PT Skilled Nursing Goals Time Frame: Apr 16, 2019 Roll Left & Right (QC): 6 Sit to Lying (QC): 6 Lying-Sitting on Side/Bed(QC): 6 Sit to Stand (QC): 4 Chair/Wew-gr-Xpxat Xfer(QC): 4 Toilet Transfer (QC): 4 Car Transfer (QC): 4 Walk 10 feet (QC): 3 Walk 50ft with 2 Turns (QC): 3 Walk 150 ft (QC): 3 Walking 10ft on Uneven Surface: 3 1 Step (curb) (QC): 3 4 Steps (QC): 3 PT Plan Treatment/Plan Treatment Plan: Continue Plan of Care Treatment Plan: Bed Mobility, Education, Functional Activity Vlad, Functional Strength, Gait, Safety, Therapeutic Exercise, Transfers Treatment Duration: May 02, 2019 Frequency: At least 5 of 7 days/Wk (IRF) Estimated Hrs Per Day: 1.5 hours per day Patient and/or Family Agrees t: Yes Safety Risks/Education Patient Education: Gait Training, Correct Positioning, Safety Issues Teaching Recipient: Patient Teaching Methods: Demonstration, Discussion Response to Teaching: Verbalize Understanding, Return Demonstration, Reinforcement Needed Time/GCodes Time In: 935 Time Out: 1010 Total Billed Treatment Time: 35 Total Billed Treatment 1,GT20m,EX5m VICTORIANO HERNDON E LEARNING DESIGNER Apr 04, 2019 10:22
--- NOTE | 2019-04-04 11:34 | PM&R Progress Note ---
Subjective HPI/CC On Admission Date Seen by Provider: Apr 04, 2019 Time Seen by Provider: 11:00 Subjective/Events-last exam Bowels are moving okay Home on Saturday with ex AFO walking well BP is doing very well IS maintained use Conferred with nursing associate therapy notes Checked meds and labs Review of Systems Neurological: Weakness, Numbness, Incoordination Objective Exam Vital Signs Vital Signs Date Time Temp Pulse Resp B/P (MAP) Pulse Ox O2 Delivery O2 Flow Rate FiO2 04/04/19 14:03 92 Room Air 04/04/19 06:20 37.2 75 20 135/67 (89) Capillary Refill : Less Than 3 Seconds General Appearance: No Apparent Distress, WD/WN, Chronically ill HEENT: PERRL/EOMI, Normal ENT Inspection, Pharynx Normal Neck: Full Range of Motion, Normal Inspection, Non Tender, Supple, Carotid Bruit Respiratory: Chest Non Tender, Lungs Clear, Normal Breath Sounds, No Accessory Muscle Use, No Respiratory Distress, Decreased Breath Sounds Cardiovascular: Regular Rate, Rhythm, No Edema, No Gallop, No JVD, No Murmur, Normal Peripheral Pulses Gastrointestinal: Normal Bowel Sounds, No Organomegaly, No Pulsatile Mass, Non Tender, Soft Back: Normal Inspection, No CVA Tenderness, No Vertebral Tenderness Extremity: Normal Capillary Refill, Normal Inspection, Normal Range of Motion, Non Tender, No Calf Tenderness, No Pedal Edema Neurologic/Psychiatric: Alert, Oriented x3, casualty claims supervisor II-XII Norm as Tested, Depressed Affect, Motor Weakness (left arm and leg weakness) Skin: Normal Color, Warm/Dry Lymphatic: No Adenopathy Results/Procedures Lab Patient resulted labs reviewed. FIM Transfers Therapy Code Descriptions/Definitions Functional [place] Measure: 0=Not Assessed/NA 4=Minimal Assistance 1=Total Assistance 5=Supervision or Setup 2=Maximal Assistance 6=Modified [place] 3=Moderate Assistance 7=Complete IndependenceSCALE: Activities may be completed with or without assistive devices. 5-Mbexzihwjd-mdcpwwq completes the activity by him/herself with no assistance fr om a helper. 5-Set-up or Clean-up Assistance-helper sets up or cleans up; patient completes activity. [place] assists only prior to or following the activity. 4-Supervision or Touching Assistance-helper provides verbal cues and/or touching/steadying and/or contact guard assistance as patient completes activity. Assistance may be provided throughout the activity or intermittently. 3-Partial/Moderate Assistance-helper does LESS THAN HALF the effort. [place] lifts, holds or supports trunk or limbs, but provides less than half the effort. 2-Substantial/Maximal Assistance-helper does MORE THAN HALF the effort. [place] lifts or holds trunk or limbs and provides more than half the effort. 1-Ehppxalnl-dyednz does ALL the effort. Patient does none of the effort to complete the activity. Or, the assistance of 2 or more helpers is required for the patient to complete the activity. If activity was not attempted, code reason: 7-Patient Refused. 9-Not Applicable-not attempted and the patient did not perform the activity before the current illness, exacerbation or injury. 10-Not Attempted due to Environmental Limitations-(lack of equipment, weather restraints, etc.). 88-Not Attempted due to Medical Conditions or Safety Concerns. Roll Left to Right (QC): 6 Sit to Lying (QC): 6 Sit to Stand (QC): 6 Chair/Ual-fs-Dwxjz Xfer(QC): 6 Car Transfer (QC): 2 Gait Training Does the Patient Walk?: Yes Distance: 150'x2 Walk 10 feet (QC): 4 Walk 50 ft with 2 Turns(QC): 4 Walk 150 ft (QC): 4 Walking 10ft/uneven surface-QC: 88 Gait Persons Needed: 1 Gait Assistive Device: Cane Single Point Wheelchair Training Does the Pt Use a Wheelchair?: Yes Distance: 150' Wheel 50 ft with 2 turns (QC): 5 Wheel 150 ft (QC): 5 Type of Wheelchair: Manual Stair Training 1 Step (curb) (QC): 88 4 Steps (QC): 88 12 Steps (QC): 88 Balance Picking up an Object (QC): 88 ADL-Treatment Eating (QC): 6 (Per pt report, he is able to cut food and bring food to mouth without assistance. ) Oral Hygiene (QC): 5 (Set up, pt required assistance opening swab, pt able to swab his gums. Pt does not have his dentures at the hospital, declined using toothbrush to scrub his gums. ) Shower/Bathe Self (QC): 3 Upper Body Dressing (QC): 3 Lower Body Dressing (QC): 3 On/Off Footwear (QC): 1 (OT educated pt on using a sock aid in order to don socks due to decreased coordination in left hand. OT demo'd donning sock onto sock aide, pt was then able to don onto right foot. He then donned the sock onto sock aide, requiring min A, then he was able to pull it onto his left foot. Assistance required for orientation of the sock. Pt then able to put on right shoe, required total assist with AFO & left shoe, and tying both shoes.) Toileting Hygiene (QC): 3 (Pt able to place urinal and void, OT assisted with holding urinal in order for it not to spill. OT then emtied urinal for pt.) Assessment/Plan Assessment and Plan Assess & Plan/Chief Complaint Assessment: CVA Left-sided weakness Hypertension Current smoker Noncompliance Reflux Diminished breath sounds in lower lobes now improved with Nebs Plan: Inpatient rehabilitation protocol Blood pressure control Monitor labs Maintain good bowel function Pepcid and Protonix Neb treatments Incentive spirometer (1) CVA (cerebral vascular accident) (2) Smoker (3) Hypertension (4) Noncompliance (5) Left-sided weakness (6) GERD (gastroesophageal reflux disease) YOLANDA KEITH DO Apr 04, 2019 11:34
--- NOTE | 2019-04-04 14:08 | NUR ---
Jey is a 63 yo male current on inpatient ARU post ischemic CVA L osmar. Patient has been A&O X4 and very pleasant with nursing staff. He is cont. of bowel and bladder. Patient is currently using a walker to transfer with some cueing and contact guard assistance provided. The current discharge plan is for patient to discharge home on Saturday with ex- Melissa. Jey has not expressed any concerns with this nurse and has denied pain so far this shift. At this time he did not want to have a shower but linens were changed and laundry completed. Dr. Griggs rounded this morning and had no concerns voiced. This nurse will continue to monitor patient throughout shift.
[2019-04-04] MEDS: ENOXAPARIN 40 MG/0.4 ML (LOVENOX) SYR SC SCH (15:42)
[2019-04-04 18:09] VITALS: BP 153/66
--- NOTE | 2019-04-04 18:48 | NUR ---
bedside report received from ASA BARAKAT, assume care of pt
[2019-04-04 20:58] VITALS: BP 123/70
--- NOTE | 2019-04-04 21:02 | NUR ---
pt refused Colace, Senokot & miralax, V/S [id number]/70-0/10
[2019-04-05 05:12] VITALS: BP 142/78
[2019-04-05] MEDS: MULTIVIT W/MINERALS TAB (THERAGRAN M) PO SCH (06:42)
[2019-04-05] MEDS: POLYETHYLENE GLYCOL 17 GM (MIRALAX) PACK PO SCH ×2 (08:24→21:31)
[2019-04-05] MEDS: SENNA W/DOCUSATE (SENOKOT S) TABLET PO SCH ×2 (08:31→21:32)
[2019-04-05] MEDS: FAMOTIDINE 20 MG (PEPCID) TABLET PO SCH ×2 (08:31→21:29)
[2019-04-05] MEDS: PANTOPRAZOLE 40 MG (PROTONIX) TAB PO SCH (08:31)
[2019-04-05] MEDS: amLODIPine 5 MG (NORVASC) TAB PO SCH (08:31)
[2019-04-05] MEDS: THIAMINE 100 MG (VITAMIN B-1) TAB PO SCH (08:31)
[2019-04-05] MEDS: DOCUSATE SODIUM 100 MG (COLACE) CAP PO SCH ×2 (08:31→21:31)
[2019-04-05] MEDS: MAGNESIUM OXIDE (MAG-OX)400 MG TAB PO SCH ×2 (08:31→21:29)
[2019-04-05] MEDS: FOLIC ACID 1 MG TAB PO SCH (08:31)
[2019-04-05] MEDS: ASPIRIN E.C. 81 MG (ECOTRIN) TAB PO SCH (08:31)
[2019-04-05] MEDS: RT-ALBUTEROL/IPRATROPIUM 3 ML (DUONEB) VIAL INH SCH ×3 (08:50→20:32)
--- NOTE | 2019-04-05 15:34 | PM&R Progress Note ---
Subjective HPI/CC On Admission Date Seen by Provider: Apr 05, 2019 Time Seen by Provider: 12:30 Subjective/Events-last exam Bowels are moving okay Home on Saturday with ex AFO walking well and appears much improved without impulsiveness BP is doing very well IS maintained use Conferred with door and arrival attendant therapy notes Checked meds and labs Review of Systems Neurological: Weakness, Numbness, Incoordination Objective Exam Vital Signs Vital Signs Date Time Temp Pulse Resp B/P (MAP) Pulse Ox O2 Delivery O2 Flow Rate FiO2 04/05/19 09:00 Room Air 04/05/19 08:50 94 04/05/19 05:12 36.7 73 18 142/78 (99) Capillary Refill : Less Than 3 Seconds General Appearance: No Apparent Distress, WD/WN, Chronically ill HEENT: PERRL/EOMI, Normal ENT Inspection, Pharynx Normal Neck: Full Range of Motion, Normal Inspection, Non Tender, Supple, Carotid Bruit Respiratory: Chest Non Tender, Lungs Clear, Normal Breath Sounds, No Accessory Muscle Use, No Respiratory Distress, Decreased Breath Sounds Cardiovascular: Regular Rate, Rhythm, No Edema, No Gallop, No JVD, No Murmur, Normal Peripheral Pulses Gastrointestinal: Normal Bowel Sounds, No Organomegaly, No Pulsatile Mass, Non Tender, Soft Back: Normal Inspection, No CVA Tenderness, No Vertebral Tenderness Extremity: Normal Capillary Refill, Normal Inspection, Normal Range of Motion, Non Tender, No Calf Tenderness, No Pedal Edema Neurologic/Psychiatric: Alert, Oriented x3, matrix repairer II-XII Norm as Tested, Depressed Affect, Motor Weakness (left arm and leg weakness) Skin: Normal Color, Warm/Dry Lymphatic: No Adenopathy Results/Procedures Lab Patient resulted labs reviewed. FIM Transfers Therapy Code Descriptions/Definitions Functional [place] Measure: 0=Not Assessed/NA 4=Minimal Assistance 1=Total Assistance 5=Supervision or Setup 2=Maximal Assistance 6=Modified [place] 3=Moderate Assistance 7=Complete IndependenceSCALE: Activities may be completed with or without assistive devices. 1-Hxfobztwii-okdwewk completes the activity by him/herself with no assistance from a helper. 5-Set-up or Clean-up Assistance-helper sets up or cleans up; patient completes activity. [place] assists only prior to or following the activity. 4-Supervision or Touching Assistance-helper provides verbal cues and/or touching/steadying and/or contact guard assistance as patient completes activ ity. Assistance may be provided throughout the activity or intermittently. 3-Partial/Moderate Assistance-helper does LESS THAN HALF the effort. [place] lifts, holds or supports trunk or limbs, but provides less than half the effort. 2-Substantial/Maximal Assistance-helper does MORE THAN HALF the effort. [place] lifts or holds trunk or limbs and provides more than half the effort. 9-Movzanafb-dnuqaj does ALL the effort. Patient does none of the effort to complete the activity. Or, the assistance of 2 or more helpers is required for the patient to complete the activity. If activity was not attempted, code reason: 7-Patient Refused. 9-Not Applicable-not attempted and the patient did not perform the activity before the current illness, exacerbation or injury. 10-Not Attempted due to Environmental Limitations-(lack of equipment, weather restraints, etc.). 88-Not Attempted due to Medical Conditions or Safety Concerns. Roll Left to Right (QC): 6 Sit to Lying (QC): 6 Sit to Stand (QC): 6 Chair/Igc-zv-Mzvbd Xfer(QC): 6 Car Transfer (QC): 2 Gait Training Does the Patient Walk?: Yes Distance: 150'x2 Walk 10 feet (QC): 4 Walk 50 ft with 2 Turns(QC): 4 Walk 150 ft (QC): 4 Walking 10ft/uneven surface-QC: 88 Gait Persons Needed: 1 Gait Assistive Device: Cane Single Point Wheelchair Training Does the Pt Use a Wheelchair?: Yes Distance: 150' Wheel 50 ft with 2 turns (QC): 5 Wheel 150 ft (QC): 5 Type of Wheelchair: Manual Stair Training 1 Step (curb) (QC): 88 4 Steps (QC): 88 12 Steps (QC): 88 Balance Picking up an Object (QC): 88 ADL-Treatment Eating (QC): 6 (Per pt report, he is able to cut food and bring food to mouth without assistance. ) Oral Hygiene (QC): 5 (Set up, pt required assistance opening swab, pt able to swab his gums. Pt does not have his dentures at the hospital, declined using toothbrush to scrub his gums. ) Shower/Bathe Self (QC): 3 Upper Body Dressing (QC): 3 Lower Body Dressing (QC): 3 On/Off Footwear (QC): 1 (OT educated pt on using a sock aid in order to don soc ks due to decreased coordination in left hand. OT demo'd donning sock onto sock aide, pt was then able to don onto right foot. He then donned the sock onto sock aide, requiring min A, then he was able to pull it onto his left foot. Assistance required for orientation of the sock. Pt then able to put on right shoe, required total assist with AFO & left shoe, and tying both shoes.) Toileting Hygiene (QC): 3 (Pt able to place urinal and void, OT assisted with holding urinal in order for it not to spill. OT then emtied urinal for pt.) Assessment/Plan Assessment and Plan Assess & Plan/Chief Complaint Assessment: CVA Left-sided weakness Hypertension Current smoker Noncompliance Reflux Diminished breath sounds in lower lobes now improved with Nebs Plan: Inpatient rehabilitation protocol Blood pressure control Monitor labs Maintain good bowel function Pepcid and Protonix Neb treatments Incentive spirometer (1) CVA (cerebral vascular accident) (2) Smoker (3) Hypertension (4) Noncompliance (5) Left-sided weakness (6) GERD (gastroesophageal reflux disease) YOLANDA KEITH DO Apr 05, 2019 15:34
[2019-04-05] MEDS: ENOXAPARIN 40 MG/0.4 ML (LOVENOX) SYR SC SCH (16:17)
[2019-04-05 18:00] VITALS: BP 128/68
--- NOTE | 2019-04-05 19:04 | NUR ---
bedside report received from TAMICA BARAKAT, assume care of pt
--- NOTE | 2019-04-05 21:29 | NUR ---
pt refused Nighat Banda & jude, pt using call light appropriately, up with 1 person assist with cane
[2019-04-06 05:41] VITALS: BP 125/86
[2019-04-06 05:46] LABS: BASOPHILS # (AUTO) 0.1 10^3/uL (0.0-0.1); BASOPHILS % (AUTO) 1 % (0-10); EOSINOPHILS # (AUTO) 0.1 10^3/uL (0.0-0.3); EOSINOPHILS % (AUTO) 1 % (0-10); HEMATOCRIT 45 % (40-54); HEMOGLOBIN 15.3 G/DL (13.3-17.7); LYMPHOCYTES # (AUTO) 1.9 X 10^3 (1.0-4.0); LYMPHOCYTES % (AUTO) 23 % (12-44); MEAN CORPUSCULAR HEMOGLOBIN 29 PG (25-34); MEAN CORPUSCULAR HGB CONC 34 G/DL (32-36); MEAN CORPUSCULAR VOLUME 86 FL (80-99); MEAN PLATELET VOLUME 10.6 FL (7.4-10.4); MONOCYTES # (AUTO) 0.9 X 10^3 (0.0-1.0); MONOCYTES % (AUTO) 10 % (0-12); NEUTROPHILS # (AUTO) 5.4 X 10^3 (1.8-7.8); NEUTROPHILS % (AUTO) 65 % (42-75); PLATELET COUNT 241 10^3/uL (130-400); RED CELL DISTRIBUTION WIDTH 12.3 % (10.0-14.5); WHITE BLOOD COUNT 8.3 10^3/uL (4.3-11.0)
[2019-04-06 06:04] LABS: ALANINE AMINOTRANSFERASE 126 U/L (0-55); ALKALINE PHOSPHATASE 77 U/L (40-136); BILIRUBIN,TOTAL 0.5 MG/DL (0.1-1.0); BUN/CREATININE RATIO 16; CALCIUM 9.4 MG/DL (8.5-10.1); CARBON DIOXIDE 22 MMOL/L (21-32); CHLORIDE 106 MMOL/L (98-107); CREATININE SERUM 0.95 MG/DL (0.60-1.30); GFR ESTIMATED > 60; GLUCOSE 99 MG/DL (70-105); POTASSIUM 4.7 MMOL/L (3.6-5.0); SODIUM 139 MMOL/L (135-145); TOTAL PROTEIN 7.2 GM/DL (6.4-8.2)
[2019-04-06] MEDS: MULTIVIT W/MINERALS TAB (THERAGRAN M) PO SCH (06:52)
[2019-04-06] MEDS: RT-ALBUTEROL/IPRATROPIUM 3 ML (DUONEB) VIAL INH SCH ×3 (08:05→18:46)
[2019-04-06] MEDS: SENNA W/DOCUSATE (SENOKOT S) TABLET PO SCH ×2 (08:14→20:03)
[2019-04-06] MEDS: ASPIRIN E.C. 81 MG (ECOTRIN) TAB PO SCH (08:14)
[2019-04-06] MEDS: THIAMINE 100 MG (VITAMIN B-1) TAB PO SCH (08:14)
[2019-04-06] MEDS: amLODIPine 5 MG (NORVASC) TAB PO SCH (08:14)
[2019-04-06] MEDS: FOLIC ACID 1 MG TAB PO SCH (08:14)
[2019-04-06] MEDS: DOCUSATE SODIUM 100 MG (COLACE) CAP PO SCH ×2 (08:14→20:03)
[2019-04-06] MEDS: FAMOTIDINE 20 MG (PEPCID) TABLET PO SCH ×2 (08:14→20:03)
[2019-04-06] MEDS: PANTOPRAZOLE 40 MG (PROTONIX) TAB PO SCH (08:14)
[2019-04-06] MEDS: MAGNESIUM OXIDE (MAG-OX)400 MG TAB PO SCH ×2 (08:14→20:03)
--- NOTE | 2019-04-06 08:37 | PM&R Progress Note ---
Subjective HPI/CC On Admission Date Seen by Provider: Apr 06, 2019 Time Seen by Provider: 08:45 Subjective/Events-last exam DC is planned for Saturday Outpatient PT will be ordered Smoking cessation will be discussed in depth All meds were sent to [facility] Pt will be monitored closely Conferred with dock pumper therapy notes Checked meds and labs Review of Systems General: Fatigue Neurological: Weakness, Numbness, Incoordination Objective Exam Vital Signs Vital Signs Date Time Temp Pulse Resp B/P (MAP) Pulse Ox O2 Delivery O2 Flow Rate FiO2 04/06/19 20:17 Room Air 04/06/19 18:46 95 04/06/19 17:37 37.1 78 18 135/83 (100) Capillary Refill : Less Than 3 Seconds General Appearance: No Apparent Distress, WD/WN, Chronically ill HEENT: PERRL/EOMI, Normal ENT Inspection, Pharynx Normal Neck: Full Range of Motion, Normal Inspection, Non Tender, Supple, Carotid Bruit Respiratory: Chest Non Tender, Lungs Clear, Normal Breath Sounds, No Accessory Muscle Use, No Respiratory Distress Cardiovascular: Regular Rate, Rhythm, No Edema, No Gallop, No JVD, No Murmur, Normal Peripheral Pulses Gastrointestinal: Normal Bowel Sounds, No Organomegaly, No Pulsatile Mass, Non Tender, Soft Back: Normal Inspection, No CVA Tenderness, No Vertebral Tenderness Extremity: Normal Capillary Refill, Normal Inspection, Normal Range of Motion, Non Tender, No Calf Tenderness, No Pedal Edema Neurologic/Psychiatric: Alert, Oriented x3, laundry superintendent II-XII Norm as Tested, Depressed Affect, Motor Weakness (left arm and leg weakness) Skin: Normal Color, Warm/Dry Lymphatic: No Adenopathy Results/Procedures Lab Laboratory Tests 04/06/19 05:40 Patient resulted labs reviewed. FIM Transfers Therapy Code Descriptions/Definitions Functional [place] Measure: 0=Not Assessed/NA 4=Minimal Assistance 1=Total Assistance 5=Supervision or Setup 2=Maximal Assistance 6=Modified [place] 3=Moderate Assistance 7=Complete IndependenceSCALE: Activities may be completed with or without assistive devices. 2-Rsnhkzmpyw-uxrlmjb completes the activity by him/herself with no assistance from a helper. 5-Set-up or Clean-up Assistance-helper sets up or cleans up; patient completes activity. [place] assists only prior to or following the activity. 4-Supervision or Touching Assistance-helper provides verbal cues and/or touching/steadying and/or contact guard assistance as patient completes a ctivity. Assistance may be provided throughout the activity or intermittently. 3-Partial/Moderate Assistance-helper does LESS THAN HALF the effort. [place] lifts, holds or supports trunk or limbs, but provides less than half the effort. 2-Substantial/Maximal Assistance-helper does MORE THAN HALF the effort. [place] lifts or holds trunk or limbs and provides more than half the effort. 9-Jnchmreuc-krejbi does ALL the effort. Patient does none of the effort to complete the activity. Or, the assistance of 2 or more helpers is required for the patient to complete the activity. If activity was not attempted, code reason: 7-Patient Refused. 9-Not Applicable-not attempted and the patient did not perform the activity before the current illness, exacerbation or injury. 10-Not Attempted due to Environmental Limitations-(lack of equipment, weather restraints, etc.). 88-Not Attempted due to Medical Conditions or Safety Concerns. Roll Left to Right (QC): 6 Sit to Lying (QC): 6 Sit to Stand (QC): 6 Chair/Nbo-tx-Jbiyd Xfer(QC): 6 Car Transfer (QC): 2 Gait Training Does the Patient Walk?: Yes Distance: 150'x2 Walk 10 feet (QC): 4 Walk 50 ft with 2 Turns(QC): 4 Walk 150 ft (QC): 4 Walking 10ft/uneven surface-QC: 88 Gait Persons Needed: 1 Gait Assistive Device: Cane Single Point Wheelchair Training Does the Pt Use a Wheelchair?: Yes Distance: 150' Wheel 50 ft with 2 turns (QC): 5 Wheel 150 ft (QC): 5 Type of Wheelchair: Manual Stair Training 1 Step (curb) (QC): 88 4 Steps (QC): 88 12 Steps (QC): 88 Balance Picking up an Object (QC): 88 ADL-Treatment Eating (QC): 6 (Per pt report, he is able to cut food and bring food to mouth without assistance. ) Oral Hygiene (QC): 5 (Set up, pt required assistance opening swab, pt able to swab his gums. Pt does not have his dentures at the hospital, declined using toothbrush to scrub his gums. ) Shower/Bathe Self (QC): 3 Upper Body Dressing (QC): 3 Lower Body Dressing (QC): 3 On/Off Footwear (QC): 1 (OT educated pt on using a sock aid in order to don socks due to decreased coordination in left hand. OT demo'd donning sock onto sock aide, pt was then able to don onto right foot. He then donned the sock onto sock aide, requiring min A, then he was able to pull it onto his left foot. Assistance required for orientation of the sock. Pt then able to put on right shoe, required total assist with AFO & left shoe, and tying both shoes.) Toileting Hygiene (QC): 3 (Pt able to place urinal and void, OT assisted with holding urinal in order for it not to spill. OT then emtied urinal for pt.) Assessment/Plan Assessment and Plan Assess & Plan/Chief Complaint Assessment: CVA Left-sided weakness Hypertension Current smoker Noncompliance Reflux Diminished breath sounds in lower lobes now improved with Nebs Plan: Inpatient rehabilitation protocol Blood pressure control Monitor labs Maintain good bowel function Pepcid and Protonix Neb treatments Incentive spirometer (1) CVA (cerebral vascular accident) (2) Smoker (3) Hypertension (4) Noncompliance (5) Left-sided weakness (6) GERD (gastroesophageal reflux disease) YOLANDA KEITH DO Apr 06, 2019 08:37
[2019-04-06] MEDS ORDERED: FAMO20TA5 PO (08:54)
[2019-04-06] MEDS ORDERED: AMLO5TAB9 PO (08:54)
[2019-04-06] MEDS ORDERED: ATOR40TA PO (08:54)
[2019-04-06] MEDS ORDERED: PANT40TA3 PO (08:54)
[2019-04-06] MEDS ORDERED: THIA100T80 PO (08:54)
[2019-04-06] MEDS ORDERED: ASPI-983 PO (08:54)
[2019-04-06] MEDS ORDERED: FOLI1TAB24 PO (08:54)
[2019-04-06] MEDS: POLYETHYLENE GLYCOL 17 GM (MIRALAX) PACK PO SCH ×2 (09:00→20:04)
--- NOTE | 2019-04-06 09:09 | Occupational Ther Daily Note ---
OT Current Status-Daily Note Subjective Pt sitting in chair, agrees to therapy. Pt has no reports of pain. Looking forward to going home tomorrow. ADL-Treatment Therapy Code Descriptions/Definitions Functional [place] Measure: 0=Not Assessed/NA 4=Minimal Assistance 1=Total Assistance 5=Supervision or Setup 2=Maximal Assistance 6=Modified [place] 3=Moderate Assistance 7=Complete IndependenceSCALE: Activities may be completed with or without assistive devices. 7-Ogopueaxkp-kzfnecp completes the activity by him/herself with no assistance from a helper. 5-Set-up or Clean-up Assistance-helper sets up or cleans up; patient completes activity. [place] assists only prior to or following the activity. 4-Supervision or Touching Assistance-helper provides verbal cues and/or touching/steadying and/or contact guard assistance as patient completes activity. Assistance may be provided throughout the activity or intermittently. 3-Partial/Moderate Assistance-helper does LESS THAN HALF the effort. [place] lifts, holds or supports trunk or limbs, but provides less than half the effort. 2-Substantial/Maximal Assistance-helper does MORE THAN HALF the effort. [place] lifts or holds trunk or limbs and provides more than half the effort. 3-Yobnhztuy-ubaulm does ALL the effort. Patient does none of the effort to complete the activity. Or, the assistance of 2 or more helpers is required for the patient to complete the activity. If activity was not attempted, code reason: 7-Patient Refused. 9-Not Applicable-not attempted and the patient did not perform the activity before the current illness, exacerbation or injury. 10-Not Attempted due to Environmental Limitations-(lack of equipment, weather restraints, etc.). 88-Not Attempted due to Medical Conditions or Safety Concerns. Eating (QC): 6 (Per nursing report) Oral Hygiene (QC): 5 (Pt stood at sink to rinse dentures and place them in his mouth) Shower/Bathe Self (QC): 4 (CGA for balance) Upper Body Dressing (QC): 5 (Pt donned pullover shirt with set up) Lower Body Dressing (QC): 4 (Pt able to thread bilateral LE into pant legs. Stood with CGA for balance during pant hike.) On/Off Footwear: 3 (Pt doffed socks without assist. Donned bilateral socks with SBA using sock aid. Pt able to don right shoe (with elastic shoe laces) with increased time. Min assist to don left AFO and shoe.) Toilet Transfer (QC): 4 (Pt able to complete toilet transfer with CGA) Other Treatment Pt completed fine motor task with left hand to increase coordination/manipulation skills. Pt able to place resistance pegs into pegboard with increased time and effort. Pt also completed left hand industrial chemist exercises with moderate resistance therapy foam. Pt states he has been completing left UE AROM exercises throughout the day. Pt sitting in chair with needs met after session. OT Short Term Goals Short Term Goals Time Frame: Apr 08, 2019 Shower/bathe self: 4 Lower body dressin Putting on/taking off footwear: 4 OT Campus Safety Officer Goals Mcfp Goals Time Frame: Apr 17, 2019 Eating (QC): 6 Oral Hygiene (QC): 6 Toileting Hygiene (QC): 6 Shower/Bathe Self (QC): 6 Upper Body Dressing (QC): 6 Lower Body Dressing (QC): 6 On/Off Footwear (QC): 6 Additional Goals: 1-Demonstrate ADL Tasks, 2-Verbalize Understanding, 3- ImproveStrength/Vlad 1=Demonstrate adherence to instructed precautions during ADL tasks. 2=Patient will verbalize/demonstrate understanding of assistive devices/modifi cations for ADL. 3=Patient will improve strength/tolerance for activity to enable patient to perform ADL's. OT Education/Plan Discharge Recommendations Plan/Recommendations: Continue POC Treatment Plan/Plan of Care Patient would benefit from OT for education, treatment and training to promote independence in ADL's, mobility, safety and/or upper extremity function for ADL's. Plan of Care: ADL Retraining, Caregiver Training, Functional Mobility, Group Exercise/Act as Ind, UE Funct Exercise/Act, UE Neuromus Re-Ed/Coord Treatment Duration: Apr 17, 2019 Frequency: At least 5 of 7 days/Wk (IRF) Estimated Hrs Per Day: 1.5 hours per day Agreement: Yes Rehab Potential: Good Time/GCodes Start Time: 08:00 Stop Time: 09:00 Total Time Billed (hr/min): 60 Billed Treatment Time 1 visit, ADLx3(45minutes), FA(15minutes) MISHEL ORTIZ OT Apr 06, 2019 09:09
--- NOTE | 2019-04-06 10:09 | Speech Therapy Daily Note ---
Speech Daily Progress Note Subjective Date Seen by Provider: Apr 06, 2019 Time Seen by Provider: 09:00 Patient was alert and cooperative for all therapy tasks. Patient reported that he is excited to finally be discharged home tomorrow. Patient sat upright in his chair for the duration of treatment. Objective Patient was re-administered the SLUMS and scored a 30/30. This scored indicates excellent improvement from his initial assessment score of 20/30. Patients score is indicated of cognition to be within normal limits. Assessment Assessment Current Status: Good Progress Treatment Plan Discontinue ST, Goals Met Speech Short Term Goals Short Term Goals Short Term Goals 1. Patient will complete memory tasks with 90% or greater with minimal cues. 2. Patient will complete problem-solving tasks with 90% or greater with minimal cues. 3. Patient will complete safety awareness tasks with 90% or greater with minimal cues. 4. Patient will complete word finding tasks with 90% or greater with minimal cues. 5. Patient will complete speech production tasks with 90% or greater with minimal cues. Speech Buffer Inflated Pad Goals Buffer Inflated Pad Goals Patient will improve cognitive-communication necessary for safety and daily living tasks with minimal assist. Speech-Plan Patient/Family Goals Patient/Family Goals: Patient will be discharging to his 's home for further recovery. Treatment Plan Speech Therapy Treatment Plan: Discontinue ST, Goals Met Treatment Duration: Apr 10, 2019 Frequency: 5 times per week Estimated Hrs Per Day: .5 hour per day Rehab Potential: Good Barriers to Learning: Patient has mild residual affects from his recent CVA, however these have mostly resolved. Pt/Family Agrees to Plan: Yes Safety Risks/Education Teaching Recipient: Patient Teaching Methods: Demonstration, Discussion Response to Teaching: Verbalize Understanding, Return Demonstration Education Topics Provided: Continued safety upon his return home. Education regarding taking it slow upon discharge and not rushing to return to work. Time Speech Therapy Time In: 09:00 Speech Therapy Time Out: 09:30 Total Billed Time: 30 Billed Treatment Time [address] ST Apr 06, 2019 10:09
--- NOTE | 2019-04-06 11:38 | Physical Therapy Daily Note ---
PT Daily Note-Current Subjective Patient in recliner pre tx, agrees to PT, has no complaints of pain. Appearance Patient in recliner post tx with nurse call, phone, tray, all needs met. Mental Status Patient Orientation: Normal For Age Transfers SCALE: Activities may be completed with or without assistive devices. 6-Uxpjzujaoc-zqcheap completes the activity by him/herself with no assistance from a helper. 5-Set-up or Clean-up Assistance-helper sets up or cleans up; patient completes activity. [place] assists only prior to or following the activity. 4-Supervision or Touching Assistance-helper provides verbal cues and/or touching/steadying and/or contact guard assistance as patient completes activity. Assistance may be provided throughout the activity or intermittently. 3-Partial/Moderate Assistance-helper does LESS THAN HALF the effort. [place] lifts, holds or supports trunk or limbs, but provides less than half the effort. 2-Substantial/Maximal Assistance-helper does MORE THAN HALF the effort. [place] lifts or holds trunk or limbs and provides more than half the effort. 2-Pvjxnfmfh-jiakfg does ALL the effort. Patient does none of the effort to complete the activity. Or, the assistance of 2 or more helpers is required for the patient to complete the activity. If activity was not attempted, code reason: 7-Patient Refused. 9-Not Applicable-not attempted and the patient did not perform the activity before the current illness, exacerbation or injury. 10-Not Attempted due to Environmental Limitations-(lack of equipment, weather restraints, etc.). 88-Not Attempted due to Medical Conditions or Safety Concerns. Roll Left & Right (QC): 6 Sit to Lying (QC): 6 Lying to Sitting/Side of Bed(Q: 6 Sit to Stand (QC): 6 Chair/Xkn-ba-Ovnvf Xfer(QC): 4 Toilet Transfer (QC): 4 Car Transfer (QC): 4 Patient performs bed mobility with independence, supine <-> sit with indepe ndence, sit <-> stand with independence, transfers with CGA, car transfer CGA. Patient needs CGA for performing a stand pivot transfer to the left side but is SBA to the right side. He has occasional instability when transferring to the left side. Weight Bearing Full Weight Bearing Full Weight Bearing Gait Training Distance: 250'x2 Walk 10 feet (QC): 4 Walk 50 ft with 2 Turns(QC): 4 Walk 150 ft (QC): 4 Walking 10ft/uneven surface-QC: 4 Gait Persons Needed: 2 Gait Assistive Device: Cane Single Point Patient can ambulate 250' with a SPC with CGA (including 50' with at least 2 turns of 90 degrees and 10' over an uneven surface). Patient tends to still drag his toes on the left side even when wearing an AFO. He could use a custom fit AFO to try to resolve this issue. Patient has occasional unsteadiness but no LOB. Patient also ambulated 50' without an assistive device with CGA. Wheelchair Training Does the Pt Use a Wheelchair?: No Stair Training Stair Training: Handrails/: 1 handrail #of Steps: 4 1 Step (curb) (QC): 4 4 Steps (QC): 4 Stairs: Pattern: Step to Patient can go up and down 4 steps using 1 handrail with CGA. He needs cues for foot placement and positioning. Balance Picking up an Object (QC): 4 Exercises LAQ left side for 5 min NuStep Minutes: 15 NuStep Workload: 5 Treatments bed mobility and transfers, ambulation, stair training, gait training, and LE exercise Assessment Current Status: Fair Progress improved general mobility PT Short Term Goals Short Term Goals Time Frame: Apr 02, 2019 Roll Left & Right: 6 Sit to lyin Lying to sitting on side of be: 6 Sit to stand: 3 Chair/aeh-ah-ffmap transfer: 3 Walk 10 feet: 3 Walk 50 feet with two turns: 3 PT Proposal Editor Goals Proposal Editor Goals PT Senior Living Goals Time Frame: Apr 16, 2019 Roll Left & Right (QC): 6 Sit to Lying (QC): 6 Lying-Sitting on Side/Bed(QC): 6 Sit to Stand (QC): 4 Chair/Ldf-sg-Frwpe Xfer(QC): 4 Toilet Transfer (QC): 4 Car Transfer (QC): 4 Walk 10 feet (QC): 3 Walk 50ft with 2 Turns (QC): 3 Walk 150 ft (QC): 3 Walking 10ft on Uneven Surface: 3 1 Step (curb) (QC): 3 4 Steps (QC): 3 PT Plan Problem List Problem List: Activity Tolerance, Functional Strength, Safety, Balance, Gait, Transfer Treatment/Plan Treatment Plan: Continue Plan of Care Treatment Plan: Bed Mobility, Education, Functional Activity Vlad, Functional Strength, Gait, Safety, Therapeutic Exercise, Transfers Treatment Duration: May 02, 2019 Frequency: At least 5 of 7 days/Wk (IRF) Estimated Hrs Per Day: 1.5 hours per day Patient and/or Family Agrees t: Yes Safety Risks/Education Patient Education: Gait Training, Transfer Techniques, Steps, Correct Positioning, Safety Issues Teaching Recipient: Patient Teaching Methods: Demonstration, Discussion Response to Teaching: Reinforcement Needed Time/GCodes Time In: 1045 Time Out: 1140 Total Billed Treatment Time: 55 Total Billed Treatment 1 visit EX 15' FA 40' JESSE CAMACHO PT Apr 06, 2019 11:38
--- NOTE | 2019-04-06 13:41 | NUR ---
CM/SS Discharge Planning Spoke with patient regarding discharge date of 04/07/2019. Patient verbalizes understanding and is agreeable. Per rn social services's note, patient will be discharging to his ex-spouse's home in [place], [place]. Patient states he would like to continue therapies on an outpatient basis after discharge from the ARU. Notes indicate that a [place] Medicaid application was filed during patient's hospitalization at [facility] in [place], [place]; however, application is in pending status. Discussed financial assistance paperwork with Nayeli Noble at [facility]. She met with patient last week and she has started the financial recruiter application. The application cannot be completed until she receives additional paperwork from the patient. Spoke with the outpatient therapy clinic at [facility], and in order for patient to be eligible for outpatient therapies through [facility], the financial recruiter application must be completed. Spoke with the outpatient therapy clinic at [facility] in [place], [place], and in order for patient to be eligible for outpatient therapies through [facility], patient must have applied for [place] Medicaid. Informed [facility] outpatient therapy clinic that, according to [facility] records, a [place] Medicaid application was filed, but is still pending. [facility] asked that medical records be faxed for review. Records faxed. Informed patient of above. Patient is agreeable and verbalizes understanding.
--- NOTE | 2019-04-06 14:18 | Therapy Group Daily Note ---
Therapy Daily Group Note Patient Education Topic Home Safety Exercises LE Seated Exercise, UE Exercise Session Ratio (pt:therapist): 3:1 Goal of Session: Education on ARU Expectations, UE/LE Strengthing Goal Met for this Session: Yes Pt Benefit of Group: Contributions to Others, F/U Use of Strategies @Home, Increased Functional Safety, Increased Functional Strength, Improved Cognition, Recognition of Peers, Socialization Other/Notes Pt ambulated mod I with FWW to/from OT/PT group. Group consisted of introductions (name, place living, what to do on a cold day), socialization, seat UE/LE exercises and educational topics on home safety. Pt introduced self appropriately and actively listened to peers. Pt participated fully in group and contributed to conversation. Pt was able to lead group in one exercise then completed other exercises while each pt lead exercise. Pt verbalized understanding of educational topics by giving own experiences and answering questions accurately. After therapy, pt sitting EOB with call light/phone in reach. All needs met in room. Start Time: 13:00 Stop Time: 14:00 Total Billed Treatment Time: 60 Total Billed Treatment 1-VERÓNICA NEWTON Apr 06, 2019 14:18
[2019-04-06] MEDS: ENOXAPARIN 40 MG/0.4 ML (LOVENOX) SYR SC SCH (15:51)
[2019-04-06 17:37] VITALS: BP 135/83
[2019-04-07 05:36] VITALS: BP 131/76
--- NOTE | 2019-04-07 06:05 | NUR ---
PATIENT AMBULATED TO BR W/CANE. PERFORMED LEONEL CARE , MANEUVERED CLOTHING FOLLOWING BM INDEPENDENTLY. WASHED HANDS, CLEANED FACE , BACK TO CHAIR. DENIES PAIN OR NEEDS AT THIS TIME. PATIENT IS PLEASANT AND LOOKING FORWARD TO D/C. RN DISCUSSED RISK OF SUBSEQUENT STROKES AND D/C SMOKING. REFUSED ANY FURTHER OR WRITTEN EDUCATION. CONT TO MONITOR.
[2019-04-07] MEDS: RT-ALBUTEROL/IPRATROPIUM 3 ML (DUONEB) VIAL INH SCH (07:51)
[2019-04-07] MEDS: POLYETHYLENE GLYCOL 17 GM (MIRALAX) PACK PO SCH (08:13)
[2019-04-07] MEDS: SENNA W/DOCUSATE (SENOKOT S) TABLET PO SCH (09:34)
[2019-04-07] MEDS: ASPIRIN E.C. 81 MG (ECOTRIN) TAB PO SCH (09:35)
[2019-04-07] MEDS: THIAMINE 100 MG (VITAMIN B-1) TAB PO SCH (09:35)
[2019-04-07] MEDS: FAMOTIDINE 20 MG (PEPCID) TABLET PO SCH (09:35)
[2019-04-07] MEDS: amLODIPine 5 MG (NORVASC) TAB PO SCH (09:35)
[2019-04-07] MEDS: FOLIC ACID 1 MG TAB PO SCH (09:35)
[2019-04-07] MEDS: PANTOPRAZOLE 40 MG (PROTONIX) TAB PO SCH (09:35)
[2019-04-07] MEDS: DOCUSATE SODIUM 100 MG (COLACE) CAP PO SCH (09:35)
[2019-04-07] MEDS: MULTIVIT W/MINERALS TAB (THERAGRAN M) PO SCH (09:35)
[2019-04-07] MEDS: MAGNESIUM OXIDE (MAG-OX)400 MG TAB PO SCH (09:35)
--- NOTE | 2019-04-07 10:07 | Discharge Summary ---
Diagnosis/Chief Complaint Date of Admission Mar 26, 2019 at 14:15 Date of Discharge Discharge Date: Apr 07, 2019 Discharge Diagnosis Assessment: CVA Left-sided weakness Hypertension Current smoker Noncompliance Reflux Diminished breath sounds in lower lobes now improved with Nebs Plan: Inpatient rehabilitation protocol Blood pressure control Monitor labs Maintain good bowel function Pepcid and Protonix Neb treatments Incentive spirometer (1) CVA (cerebral vascular accident) (2) Smoker (3) Hypertension (4) Noncompliance (5) Left-sided weakness (6) GERD (gastroesophageal reflux disease) Discharge Summary Discharge Physical Examination Allergies: Coded Allergies: Penicillins (Verified Allergy, Unknown, 03/26/19) Vitals & I&Os Vital Signs Date Time Temp Pulse Resp B/P (MAP) Pulse Ox O2 Delivery O2 Flow Rate FiO2 04/07/19 10:10 04/07/19 08:15 Room Air 04/07/19 07:52 97 04/07/19 05:36 37.2 66 18 General Appearance: Alert, Oriented X3, Cooperative Respiratory: Clear to Auscultation Cardiovascular: Regular Rate Neuro: Normal Speech Psych/Mental Status: Mental Status NL Hospital Course Was the Problem List Reviewed?: Yes Hospital course: Pt had an uneventful hospital course for 13 days after he was admitted for left-sided weakness for a stroke, he was placed on stroke protocol medications, was monitored closely, COPD was managed with nebulizer treatments, smoking cessation was counseled, bowels returned back to normal and Pt was deemed stable for discharge along with outpatient PT orders and will have close follow-up with [facility] and will continue therapy to complete his recovery. Labs (last 24 hrs) Laboratory Tests 03/27/19 04:49: White Blood Count 7.5, Red Blood Count 5.01, Hemoglobin 14.5, Hematocrit 43, Mean Corpuscular Volume 86, Mean Corpuscular Hemoglobin 29, Mean Corpuscular Hemoglobin Concent 34, Red Cell Distribution Width 12.9, Platelet Count 187, Mean Platelet Volume 10.8H, Neutrophils (%) (Auto) 55, Lymphocytes (%) (Auto) 29, Monocytes (%) (Auto) 11, Eosinophils (%) (Auto) 5, Basophils (%) (Auto) 1, Neutrophils # (Auto) 4.1, Lymphocytes # (Auto) 2.2, Monocytes # (Auto) 0.8, Eosinophils # (Auto) 0.4H, Basophils # (Auto) 0.0, Sodium Level 138, Potassium Level 3.8, Chloride Level 109H, Carbon Dioxide Level 20L, Anion Gap 9, Blood Urea Nitrogen 12, Creatinine 0.77, Estimat Glomerular Filtration Rate > 60, BUN/Creatinine Ratio 16, Glucose Level 102, Calcium Level 8.2L, Corrected Calcium 8.6, Total Bilirubin 0.9, Aspartate Amino Transf (AST/SGOT) 34, Alanine Aminotransferase (ALT/SGPT) 30, Alkaline Phosphatase 63, Total Protein 6.2L, Albumin 3.5 03/30/19 05:28: White Blood Count 9.0, Red Blood Count 5.30, Hemoglobin 15.6, Hematocrit 46, Mean Corpuscular Volume 87, Mean Corpuscular Hemoglobin 29, Mean Corpuscular Hemoglobin Concent 34, Red Cell Distribution Width 12.9, Platelet Count 184, Mean Platelet Volume 11.5H, Neutrophils (%) (Auto) 55, Lymphocytes (%) (Auto) 28, Monocytes (%) (Auto) 10, Eosinophils (%) (Auto) 6, Basophils (%) (Auto) 1, Neutrophils # (Auto) 5.0, Lymphocytes # (Auto) 2.5, Monocytes # (Auto) 0.9, Eosinophils # (Auto) 0.5H, Basophils # (Auto) 0.1, Sodium Level 137, Potassium Level 4.2, Chloride Level 108H, Carbon Dioxide Level 20L, Anion Gap 9, Blood Urea Nitrogen 14, Creatinine 0.90, Estimat Glomerular Filtration Rate > 60, BUN/Creatinine Ratio 16, Glucose Level 106H, Calcium Level 8.4L, Corrected Calcium 8.8, Total Bilirubin 0.3, Aspartate Amino Transf (AST/SGOT) 38H, Alanine Aminotransferase (ALT/SGPT) 53, Alkaline Phosphatase 68, Total Protein 6.5, Albumin 3.5 04/06/19 05:40: White Blood Count 8.3, Red Blood Count 5.25, Hemoglobin 15.3, Hematocrit 45, Mean Corpuscular Volume 86, Mean Corpuscular Hemoglobin 29, Mean Corpuscular Hemoglobin Concent 34, Red Cell Distribution Width 12.3, Platelet Count 241, Mean Platelet Volume 10.6H, Neutrophils (%) (Auto) 65, Lymphocytes (%) (Auto) 23, Monocytes (%) (Auto) 10, Eosinophils (%) (Auto) 1, Basophils (%) (Auto) 1, Neutrophils # (Auto) 5.4, Lymphocytes # (Auto) 1.9, Monocytes # (Auto) 0.9, Eosinophils # (Auto) 0.1, Basophils # (Auto) 0.1, Sodium Level 139, Potassium Level 4.7, Chloride Level 106, Carbon Dioxide Level 22, Anion Gap 11, Blood Urea Nitrogen 15, Creatinine 0.95, Estimat Glomerular Filtration Rate > 60, BUN/Creatinine Ratio 16, Glucose Level 99, Calcium Level 9.4, Corrected Calcium 9.4, Total Bilirubin 0.5, Aspartate Amino Transf (AST/SGOT) 66H, Alanine Aminotransferase (ALT/SGPT) 126H, Alkaline Phosphatase 77, Total Protein 7.2, Albumin 4.0 Pending Labs Laboratory Tests 03/27/19 04:49: White Blood Count 7.5, Red Blood Count 5.01, Hemoglobin 14.5, Hematocrit 43, Mean Corpuscular Volume 86, Mean Corpuscular Hemoglobin 29, Mean Corpuscular Hemoglobin Concent 34, Red Cell Distribution Width 12.9, Platelet Count 187, Mean Platelet Volume 10.8, Neutrophils (%) (Auto) 55, Lymphocytes (%) (Auto) 29, Monocytes (%) (Auto) 11, Eosinophils (%) (Auto) 5, Basophils (%) (Auto) 1, Ne utrophils # (Auto) 4.1, Lymphocytes # (Auto) 2.2, Monocytes # (Auto) 0.8, Eosinophils # (Auto) 0.4, Basophils # (Auto) 0.0, Sodium Level 138, Potassium Level 3.8, Chloride Level 109, Carbon Dioxide Level 20, Anion Gap 9, Blood Urea Nitrogen 12, Creatinine 0.77, Estimat Glomerular Filtration Rate > 60, BUN/Creatinine Ratio 16, Glucose Level 102, Calcium Level 8.2, Corrected Calcium 8.6, Total Bilirubin 0.9, Aspartate Amino Transf (AST/SGOT) 34, Alanine Aminotransferase (ALT/SGPT) 30, Alkaline Phosphatase 63, Total Protein 6.2, Albumin 3.5 03/30/19 05:28: White Blood Count 9.0, Red Blood Count 5.30, Hemoglobin 15.6, Hematocrit 46, Mean Corpuscular Volume 87, Mean Corpuscular Hemoglobin 29, Mean Corpuscular Hemoglobin Concent 34, Red Cell Distribution Width 12.9, Platelet Count 184, Mean Platelet Volume 11.5, Neutrophils (%) (Auto) 55, Lymphocytes (%) (Auto) 28, Monocytes (%) (Auto) 10, Eosinophils (%) (Auto) 6, Basophils (%) (Auto) 1, Neutrophils # (Auto) 5.0, Lymphocytes # (Auto) 2.5, Monocytes # (Auto) 0.9, Eosinophils # (Auto) 0.5, Basophils # (Auto) 0.1, Sodium Level 137, Potassium Level 4.2, Chloride Level 108, Carbon Dioxide Level 20, Anion Gap 9, Blood Urea Nitrogen 14, Creatinine 0.90, Estimat Glomerular Filtration Rate > 60, BUN/Cre atinine Ratio 16, Glucose Level 106, Calcium Level 8.4, Corrected Calcium 8.8, Total Bilirubin 0.3, Aspartate Amino Transf (AST/SGOT) 38, Alanine Aminotransferase (ALT/SGPT) 53, Alkaline Phosphatase 68, Total Protein 6.5, Albumin 3.5 04/06/19 05:40: White Blood Count 8.3, Red Blood Count 5.25, Hemoglobin 15.3, Hematocrit 45, Mean Corpuscular Volume 86, Mean Corpuscular Hemoglobin 29, Mean Corpuscular Hemoglobin Concent 34, Red Cell Distribution Width 12.3, Platelet Count 241, Mean Platelet Volume 10.6, Neutrophils (%) (Auto) 65, Lymphocytes (%) (Auto) 23, Monocytes (%) (Auto) 10, Eosinophils (%) (Auto) 1, Basophils (%) (Auto) 1, Neutrophils # (Auto) 5.4, Lymphocytes # (Auto) 1.9, Monocytes # (Auto) 0.9, Eosinophils # (Auto) 0.1, Basophils # (Auto) 0.1, Sodium Level 139, Potassium Level 4.7, Chloride Level 106, Carbon Dioxide Level 22, Anion Gap 11, Blood Urea Nitrogen 15, Creatinine 0.95, Estimat Glomerular Filtration Rate > 60, BUN/Creatinine Ratio 16, Glucose Level 99, Calcium Level 9.4, Corrected Calcium 9.4, Total Bilirubin 0.5, Aspartate Amino Transf (AST/SGOT) 66, Alanine Aminotransferase (ALT/SGPT) 126, Alkaline Phosphatase 77, Total Protein 7.2, Albumin 4.0 Discharge Home Medications: Active Scripts Active Vitamin B-1 (Thiamine HCl) 100 Mg Tablet 100 Mg PO DAILY Folic Acid 1 Mg Tablet 1 Mg PO DAILY Pantoprazole Sodium 40 Mg Tablet.dr 40 Mg PO DAILY Famotidine 20 Mg Tablet 20 Mg PO BID Aspirin EC (Aspirin) 81 Mg Tablet.dr 81 Mg PO DAILY Lipitor (Atorvastatin Calcium) 40 Mg Tablet 40 Mg PO HS Amlodipine Besylate 5 Mg Tablet 5 Mg PO DAILY Instructions to patient/family Please see electronic discharge instructions given to patient. Diagnosis/Problems Diagnosis/Problems (1) CVA (cerebral vascular accident) (2) Smoker (3) Hypertension (4) Noncompliance (5) Left-sided weakness (6) GERD (gastroesophageal reflux disease) Clinical Quality Measures DVT/VTE Risk/Contraindication: Risk Factor Score Per Nursin RFS Level Per Nursing on Admit: 4+=Very High YOLANDA KEITH DO Apr 07, 2019 10:07
--- NOTE | 2019-04-07 10:27 | NUR ---
CM/SS DISCHARGE Patient's daughter Basil Mahoney, son Jey Mahoney, and ex spouse Melissa De Guzman here this a.m. to participate in family education about patient deficits, precautions and care needs. RN made followup appointment with [facility] to re-establish patient there for primary care. Patient expected to have a physician approval to return to work upon hospital discharge. Advised patient to contact employer [employer] regarding their requirements and to pursue medical approval through his PCP at [facility] in conjunction with [employer] policy. Patient has had Medicaid applications initiated at both [facility] and [facility], neither are completed. Advised daughter Basil Le he should only complete one but that it should be expedited as far as them providing the needed supportive documentation. Basil Le understands that [facility] would need proof of income (3 current paycheck stubs) and most recent filed income tax return. OP PT was recommended, referral completed with [facility]. Confirmed with them this a.m. patient would have to sign an agreement to private pay in case Medicaid was not approved. Updated Amanda, doubtful patient could afford $330+ per session nor would he agree to pay if uninsured. Patient's unfinished DPOA paperwork was found in a room drawer, sending by mail to Melissa's address.
--- NOTE | 2019-04-07 11:05 | Therapy Team Discharge Summary ---
Therapy Discharge Summary Discharge Recommendations Date of Discharge Occupational Therapy Pt admitted to ARU following acute hospitalization for CVA with left side deficits. On admission pt required max assist with LE dressing and footwear and min assist with bathing, toileting, and UE dressing. Skilled OT intervention focused on ADL training, transfers, strengthening, coordination, and safety education. Pt progressed with therapy and by discharge is completing bathing, LE dressing, and toilet transfer with CGA; UE dressing with set up, and eating with modified independence. Pt met goal for eating, but did not meet other LTG. Pt discharging this date with family support. D/C ARU OT at this time. Decreased Activ Tolerance, Decreased UE Strength, Impaired Coordination, Impaired Funct Balance, Impaired I ADL's, Impaired Self-Care Skills, Restricted Funct UE ROM PT Wire Drawing Die Maker Goals Wire Drawing Die Maker Goals PT Wire Drawing Die Maker Goals Time Frame: Apr 16, 2019 Roll Left to Right (QC): 6 Sit to Lying (QC): 6 Lying-Sitting on Side/Bed(QC): 6 Sit to Stand (QC): 4 Chair/Lhu-ka-Gjdej Xfer(QC): 4 Car Transfer (QC): 4 Walk 10 feet (QC): 3 Walk 10ft-Uneven Surface(QC): 3 Walk 50ft with 2 Turns (QC): 3 Walk 150 ft (QC): 3 1 Step (curb) (QC): 3 4 Steps (QC): 3 OT Group Home Goals Wire Drawing Die Maker Goals Time Frame: Apr 17, 2019 Eating (QC): 6 Oral Hygiene (QC): 6 Shower/Bathe Self (QC): 6 Upper Body Dressing (QC): 6 Lower Body Dressing (QC): 6 On/Off Footwear (QC): 6 Toileting Hygiene (QC): 6 Toilet/Commode Transfer (QC): 4 Additional Goals: 1-Demonstrate ADL Tasks, 2-Verbalize Understanding, 3- ImproveStrength/Vlad 1=Demonstrate adherence to instructed precautions during ADL tasks. 2=Patient will verbalize/demonstrate understanding of assistive devices/modifications for ADL. 3=Patient will improve strength/tolerance for activity to enable patient to perform ADL's. Speech Group Home Goals Wire Drawing Die Maker Goals Patient will improve cognitive-communication necessary for safety and daily living tasks with minimal assist. MISHEL ORTIZ OT Apr 07, 2019 11:05
--- NOTE | 2019-04-07 11:56 | Therapy Team Discharge Summary ---
Therapy Discharge Summary Discharge Recommendations Date of Discharge Physical Therapy Patient came to rehab following a CVA. Upon evaluation patient performed bed mobility with SBA, supine <-> sit with SBA, sit <-> stand with mod assist, transfers mod assist, car transfer max assist, ambulated 8' in the parallel bars with min assist, no stairs at that time. Patient has been performing bed mobility and transfer training, balance and endurance training, functional strengthening, stair training, gait training, and education. Patient has made good progress and has met all of his detention goals. Now, patient performs bed mobility with independence, supine <-> sit with independence, sit <-> stand with independence, transfers with CGA, car transfer CGA, ambulates 250' with a SPC with CGA (including 50' with at least 2 turns of 90 degrees and 10' over an uneven surface), can go up and down 4 steps using 1 handrail with CGA, and can parts picker an object from the floor with SBA. Patient is discharging from this facility today and will be discharged from PT at this time. Occupational Therapy Decreased Activ Tolerance, Decreased UE Strength, Impaired Coordination, Impaired Funct Balance, Impaired I ADL's, Impaired Self-Care Skills, Restricted Funct UE ROM PT Customer Account Representative Goals Customer Account Representative Goals PT Mcc Goals Time Frame: Apr 16, 2019 Roll Left to Right (QC): 6 Sit to Lying (QC): 6 Lying-Sitting on Side/Bed(QC): 6 Sit to Stand (QC): 4 Chair/Kjh-pb-Dilyp Xfer(QC): 4 Car Transfer (QC): 4 Walk 10 feet (QC): 3 Walk 10ft-Uneven Surface(QC): 3 Walk 50ft with 2 Turns (QC): 3 Walk 150 ft (QC): 3 1 Step (curb) (QC): 3 4 Steps (QC): 3 OT Mcc Goals Mcc Goals Time Frame: Apr 17, 2019 Eating (QC): 6 Oral Hygiene (QC): 6 Shower/Bathe Self (QC): 6 Upper Body Dressing (QC): 6 Lower Body Dressing (QC): 6 On/Off Footwear (QC): 6 Toileting Hygiene (QC): 6 Toilet/Commode Transfer (QC): 4 Additional Goals: 1-Demonstrate ADL Tasks, 2-Verbalize Understanding, 3- ImproveStrength/Vlad 1=Demonstrate adherence to instructed precautions during ADL tasks. 2=Patient will verbalize/demonstrate understanding of assistive devices/modifications for ADL. 3=Patient will improve strength/tolerance for activity to enable patient to perform ADL's. Speech Mcc Goals Mcc Goals Patient will improve cognitive-communication necessary for safety and daily living tasks with minimal assist. JESSE CAMACHO PT Apr 07, 2019 11:56
--- NOTE | 2019-04-09 13:19 | Therapy Team Discharge Summary ---
Therapy Discharge Summary Discharge Recommendations Date of Discharge Apr 07, 2019 at 10:10 Occupational Therapy Decreased Activ Tolerance, Decreased UE Strength, Impaired Coordination, Impa ired Funct Balance, Impaired I ADL's, Impaired Self-Care Skills, Restricted Funct UE ROM Speech-Language Pathology Patient was admitted to the ARU s/p CVA. Patient received skilled ST for cognitive function with focus on safety awareness and independence. Patient was discharged to his 's home on 04/07/2019. Patient met his goals without cuing. Patient is discharged from skilled ST at this time. PT Geospatial Information Technologist Goals Half-Way Goals PT Geospatial Information Technologist Goals Time Frame: Apr 16, 2019 Roll Left to Right (QC): 6 Sit to Lying (QC): 6 Lying-Sitting on Side/Bed(QC): 6 Sit to Stand (QC): 4 Chair/Drj-es-Geyiq Xfer(QC): 4 Car Transfer (QC): 4 Walk 10 feet (QC): 3 Walk 10ft-Uneven Surface(QC): 3 Walk 50ft with 2 Turns (QC): 3 Walk 150 ft (QC): 3 1 Step (curb) (QC): 3 4 Steps (QC): 3 OT Geospatial Information Technologist Goals Half-Way Goals Time Frame: Apr 17, 2019 Eating (QC): 6 Oral Hygiene (QC): 6 Shower/Bathe Self (QC): 6 Upper Body Dressing (QC): 6 Lower Body Dressing (QC): 6 On/Off Footwear (QC): 6 Toileting Hygiene (QC): 6 Toilet/Commode Transfer (QC): 4 Additional Goals: 1-Demonstrate ADL Tasks, 2-Verbalize Understanding, 3- ImproveStrength/Vlad 1=Demonstrate adherence to instructed precautions during ADL tasks. 2=Patient will verbalize/demonstrate understanding of assistive devices/modifications for ADL. 3=Patient will improve strength/tolerance for activity to enable patient to perform ADL's. Speech Geospatial Information Technologist Goals Half-Way Goals Patient will improve cognitive-communication necessary for safety and daily living tasks with minimal assist. Met SIN POLK Apr 09, 2019 13:19
== END 2019-04-07 10:10 | disposition home or self-care (01) | DRG 57 ==
PROVIDERS: ADMIT Internal Medicine; ATTEND Internal Medicine
DX: I69.354 Hemiplegia and hemiparesis following cerebral infarction affecting left non-dominant side (principal); F17.210 Nicotine dependence, cigarettes, uncomplicated; K21.9 Gastro-esophageal reflux disease without esophagitis; I10 Essential (primary) hypertension; Z91.19 Patient's noncompliance with other medical treatment and regimen; Z66 Do not resuscitate; J44.9 Chronic obstructive pulmonary disease, unspecified; B35.1 Tinea unguium; G60.9 Hereditary and idiopathic neuropathy, unspecified; M21.372 Foot drop, left foot; R50.9 Fever, unspecified
CPT/HCPCS: 36415; 80053; 85025; 94640; 94664; 94760

== ENCOUNTER 2023-01-02 06:13 | Outpatient (CLI) | payer MEDICARE, MEDICAID ==
[~2023-01-02] VITALS: Ht 182.8 cm; Wt 94.8 kg
[~2023-01-02 06:13] MED LIST: AMLO-250 PO; ASPI-1238 PO; ATOR40TA PO; ATOR40TA70 PO; FAMO20TA5 PO; FOLI1TAB33 PO; MULT-20 PO; PANT40TA52 PO; THIA100T66 PO; THIA100T80 PO
[2023-01-02] MEDS ORDERED: HYDR12.56 PO (16:06)
[2023-01-02] MEDS ORDERED: TADA10TA14 PO (16:06)
[2023-01-02] MEDS ORDERED: AMLO-251 PO (16:06)
== END 2023-01-02 16:26 | disposition home or self-care (01) ==
LOC: PREOP 06:13
PROVIDERS: ATTEND Surgery
DX: Z01.818 Encounter for other preprocedural examination (principal)

== ENCOUNTER 2023-01-15 12:38 | Day surgery (SDC) | payer MEDICARE, MEDICAID ==
[2023-01-15] VITALS (7 sets, daily range): BP systolic 82–156; BP diastolic 52–98
[~2023-01-15] VITALS: Ht 182.9 cm; Wt 94.8 kg
[~2023-01-15 12:38] MED LIST changes: +AMLO-251 PO; +HYDR12.56 PO; +TADA10TA14 PO
[2023-01-15] MEDS ORDERED: LACTATED RINGERS 1,000 ML 1,000 ML IV STA (12:42)
--- NOTE | 2023-01-15 14:04 | Progress Note-Pre Operative ---
Pre-Operative Progress Note Date H&P Reviewed: Jan 15, 2023 Time H&P Reviewed: 14:04 History & Physical: H&P Reviewed, Patient Examed, No changes noted Pre-Operative Diagnosis: Positive cologuard PABLO TELLES DO Jan 15, 2023 14:04
--- NOTE | 2023-01-15 15:10 | Progress Note-Post Operative ---
Post-Operative Progess Note Surgeon (s)/Manager Automotive (s) Surgeon PABLO TELLES DO Manager Automotive: n/a Pre-Operative Diagnosis Positive cologuard Post-Operative Diagnosis Colon polyps Procedure & Operative Findings Date of Procedure 01/15/23 Procedure Performed/Findings Colonoscopy w/ snare polypectomy x6 Anesthesia Type DO anesthesiologist Estimated Blood Loss Estimated blood loss (mL): none Specimens/Packing Specimens Removed Colon polyps PABLO TELLES DO Jan 15, 2023 15:09
--- NOTE | 2023-01-15 15:10 | Discharge Inst-Simple/Standard ---
Discharge Inst-Standard Patient Instructions/Follow Up Plan of Care/Instructions/FU: Sadia 2 weeks Activity as Tolerated: Yes Discharge Diet: Regular Diet PABLO TELLES DO Jan 15, 2023 15:10
--- NOTE | 2023-01-15 15:50 | Anesthesia-General Post-Op ---
MAC Patient Condition Mental Status/LOC: Same as Preop Cardiovascular: Satisfactory Nausea/Vomiting: Absent Respiratory: Satisfactory Pain: Controlled Complications: Absent Post Op Complications Complications None Follow Up Care/Instructions Patient Instructions None needed. Anesthesiology Discharge Order Discharge Order Patient is doing well, no complaints, stable vital signs, no apparent adverse anesthesia problems. No complications reported per nursing. GERONIMO PADGETT DO Jan 15, 2023 15:50
--- NOTE | 2023-01-15 21:00 | OPERATIVE REPORT ---
DATE OF SERVICE: 01/15/2023 PREOPERATIVE DIAGNOSIS: Positive Cologuard. POSTOPERATIVE DIAGNOSIS: Colon polyps. PROCEDURE: Colonoscopy with snare polypectomy x6. SURGEON: Pablo Mccullough DO ANESTHESIA: Per MAMMOGRAPHY SUPERVISOR. ESTIMATED BLOOD LOSS: None. COMPLICATIONS: None. INDICATIONS: The patient is a 67-year-old male with positive Cologuard. He understands risks and benefits of procedure and wished to proceed. Consent was signed in chart. DESCRIPTION OF PROCEDURE: The patient was taken to the endoscopy suite, placed in left lateral recumbent position. Timeout was performed. Digital rectal exam was performed. No palpable polyps, masses or ulcerations. Scope was inserted in the rectum, advanced all the way to the cecum with minimal difficulty. Prep was not the best, but lots of irrigation and suction was used to help visualize. There were no polyps, masses or ulcerations in the cecum. The scope was then continuously retracted back in the ascending colon. Polyp was present, which snare polypectomy was performed. This was a larger polyp. Scope was then continuously retracted back. No polyps, masses or ulcerations within the remainder of the ascending colon. In the transverse colon, a polyp was present, which hot biopsy polypectomy was performed. Scope was then continuously retracted back, irrigating and suctioning for better visualization. Scope was then continuously retracted back. No polyps, masses or ulcerations in the remainder of the transverse, descending and sigmoid colon. In the rectum, 4 polyps were present, which snare polypectomies were performed. Scope was then inserted and retracted multiple times and slowly retracted until completely removed, noting no other pathology. RECOMMENDATIONS: The patient will follow up on pathology in 2 weeks. We would recommend repeat colonoscopy in one year due to the size of polyps and also due to the prep requiring lots of irrigation and suctioning. Any issues before that, he will be seen at that time. Job ID: [id number] DocumentID: [id number] Dictated Date: 01/15/2023 15:29:18 Utility Teller Date: 01/15/2023 20:58:00 Dictated By: PBALO MCCULLOUGH DO
== END 2023-01-15 15:46 | disposition home or self-care (01) ==
LOC: ENDO 12:38
PROVIDERS: ATTEND Surgery
DX: Z12.11 Encounter for screening for malignant neoplasm of colon (principal); D12.2 Benign neoplasm of ascending colon; D12.3 Benign neoplasm of transverse colon; K62.1 Rectal polyp; C44.92 Squamous cell carcinoma of skin, unspecified; F17.210 Nicotine dependence, cigarettes, uncomplicated
CPT/HCPCS: 88305